=== PATIENT | female | born 1940 | race Caucasian/White ===

== ENCOUNTER 2017-01-05 09:48 | Inpatient (IN) | payer BC, OTHER ==
[~2017-01-05] VITALS: Ht 170.2 cm; Wt 73.8 kg
[~2017-01-05 09:48] MED LIST: ASPCH81X PO; CHOL100010 PO; CRAN1CAP15 PO; HYDR-3124 PO; INSUINJ4 SQ; NVLGI SC; PROB1CAP27 PO
[2017-01-05] MEDS ORDERED: NVLG SC (10:41)
[2017-01-05] MEDS ORDERED: INSDGIPEN SC (10:41)
[2017-01-05] MEDS ORDERED: VTMD1000 PO (10:41)
[2017-01-05 10:45] LABS: BASO % 0.5 %; BASO ABS # 0.06 K/uL (0-0.2); COMPLETE YES; EOS % 1.9 %; HEMATOCRIT 40.4 % (37-47); IG% 0.4 %; LYMPH % 22.8 %; LYMPH ABS # 2.59 K/uL (1.2-3.4); MEAN CORPUSCULAR HEMOGLOBIN 29.8 pg (25-34); MEAN CORPUSCULAR HGB CONC 33.2 g/dl (32-36); MEAN PLATELET VOLUME 11.1 fL (7.4-10.4); MONO % 9.9 %; NEUT % 64.5 %; PLATELET COUNT 220 K/uL (130-400); RED BLOOD COUNT 4.49 M/uL (4.2-5.4); WHITE BLOOD COUNT 11.37 K/uL (4.8-10.8)
[2017-01-05] MEDS ORDERED: EXEN1INJ3 SC (10:45)
[2017-01-05] MEDS ORDERED: ATOR-26 PO (10:47)
[2017-01-05 11:12] LABS: ALT/SGPT 17 U/L (12-78); AST/SGOT 12 U/L (15-37); BLOOD UREA NITROGEN 17 mg/dl (7-18); BUN/CREATININE RATIO 12.5 (10-20); CALCIUM 9.3 mg/dl (8.5-10.1); CARBON DIOXIDE 29 mmol/L (21-32); CHLORIDE 107 mmol/L (98-107); GLUCOSE 91 mg/dl (70-99); POTASSIUM 3.9 mmol/L (3.5-5.1); SODIUM 143 mmol/L (136-145)
[2017-01-05 11:22] LABS: ALKALINE PHOSPHATASE 98 U/L (45-117); CKMB/CK RATIO 1.4 (0-3.0); THYROID STIMULATING HORMONE 0.951 uIu/ml (0.300-4.500)
[2017-01-05] MEDS ORDERED: NTRGSL/4 UT (11:27)
--- NOTE | 2017-01-05 11:52 | DIAGNOSTIC IMAGING REPORT ---
CT HEAD WITHOUT CONTRAST (CT) CLINICAL HISTORY: Change in mental status. HEAD TRAUMA. POSSIBLE HEMORRHAGE. COMPARISON STUDY: 10/15/2015 TECHNIQUE: Axial CT of the brain is performed from the vertex to the skull base. IV contrast was not administered for this examination. CT DOSE: 614.27 mGy.cm FINDINGS: No intra or extra-axial mass lesions are visualized. There is no CT evidence of acute cortical infarction. There is no evidence of midline shift. There is no acute hemorrhage. No calvarial fractures are visualized. There are patchy white matter hypodensities likely on a small vessel basis. There is no evidence of pathologic ventricular dilatation. There is no evidence of acute sinusitis IMPRESSION: No acute intracranial findings Electronically signed by: Calvin Villalba M.D. 01/05/2017 11:51 AM Dictated Date/Time: 01/05/2017 11:50 AM
[2017-01-05] MEDS ORDERED: SODIUM CHLORIDE 0.9% 500ML 500 ML IV STA (12:35)
--- NOTE | 2017-01-05 13:15 | DIAGNOSTIC IMAGING REPORT ---
LEFT RIBS UNILATERAL WITH PA CHEST CLINICAL HISTORY: left eval for fx trauma. Pain. COMPARISON STUDY: None FINDINGS: Negative study IMPRESSION: Negative study Electronically signed by: Cody Hansen M.D. 01/05/2017 12:39 PM Dictated Date/Time: 01/05/2017 12:38 PM
--- NOTE | 2017-01-05 14:03 | EMERGENCY ROOM VISIT NOTE ---
History Report prepared by Gumaro: Blaire Wagoner Under the Supervision of: Dr. Gareth Burnett M.D. First contact with patient: 10:32 Chief Complaint: RIB PAIN Stated Complaint: FELL LAST PM, LEFT RIB PAIN History of Present Illness The patient is a 76 year old female who presents to the Emergency Room with complaints of a sudden fall that occurred this morning. She currently rates her discomfort as a 3/10 in severity. The patient states that for the past several years she has been dizzy. She describes her dizziness as a lightheadedness. The patient states that she injured her left ribs, stating that she has been experiencing left rib pain. She states that she did hit her head this morning, but denies any loss of consciousness. The patient's daughter notes that the patient has had several falls recently. The patient describes her rib pain as a sharp pain. The patient's daughter notes that the patient has had a thirty pound weight loss in the past four months, noting that the patient has had a decrease in appetite. The patient states that she did not drink normal fluids this morning. The patient's daughter notes that the patient's blood glucose was checked this morning, noting that it was 85 mg/dL. She notes that the patient has a history of previous TIAs. The patient states that she had felt that she was developing a recent cold. The patient denies any headache, neck pain, chest pain, shortness of breath, abdominal pain, numbness or weakness to one side of the body, back pain, hip pain, or urinary symptoms. Source of History: patient Onset: this morning Position: other (global) Symptom Intensity: 3/10 Quality: other (fall) Timing: other (sudden) Associated Symptoms: No SOB, No abdominal pain, No back pain, No chest pain , No headache, No neck pain, No numbness, No urinary symptoms, No weakness Note: Associated Symptoms: dizziness, lightheadedness, sharp rib pain, weight loss of thirty pounds in last four months, decrease in appetite, decrease in fluid intake Review of Systems See HPI for pertinent positives & negatives. A total of 10 systems reviewed and were otherwise negative. Past Medical & Surgical Medical Problems: (1) Achilles Tendon Surgery (2) Benign hypertension (3) Chronic kidney disease stage 4 (4) Depression (5) Diabetes mellitus type 2 (6) Dyslipidemia (7) Hyperglycemia (8) Post percutaneous transluminal coronary angioplasty (9) Syncope (10) Toe amputation status Surgical Problems: (1) H/O colonoscopy (2) H/O esophagogastroduodenoscopy (3) H/O toe surgery (4) S/P tonsillectomy Family History Diabetes mellitus FH: heart disease Social History Smoking Status: Current Every Day Smoker Drug Use: none Marital Status: Occupation Status: retired Current/Historical Medications Scheduled Aspirin (Aspirin Chewable), 81 MG PO QPM Atorvastatin (Lipitor), 80 MG PO QPM Cholecalciferol (Vitamin D3), 1,000 INTER.UNIT PO QPM Cranberry-Vitamin C-Vitamin E (Cranberry), 1 CAP PO QPM Exenatide (Bydureon), SC WK Insulin Glargine (Lantus Solostar), 22 UNITS SC QPM Lisinopril (Lisinopril), 2.5 MG PO QPM Probiotic Product (Trubiotics), 1 CAP PO QPM Sertraline (Zoloft), 50 MG PO QPM Scheduled PRN Hydroxyzine Hcl (Atarax), 25 MG PO DAILY PRN for PRN Nitroglycerin (Nitrostat), 0.4 MG UT UD PRN for Chest Pain Allergies Coded Allergies: Cephalosporins (Verified Allergy, Unknown, tolerated Keflex at home, ok for rocephin per dr ho, 01/05/17) [id number] ADMISSION Latex (Verified Allergy, Unknown, "POSSIBLE"- PATIENT DOESN'T REMEMBER BEING ALLERGIC TO LATEX, 01/05/17) PT SAYS SHE "MAY BE" SENSITIVE TO LATEX. Moxifloxacin (Verified Allergy, Unknown, TENDON PAIN, 01/05/17) NSAIDs (Verified Allergy, Unknown, ABDOMINAL PAIN, 01/05/17) Penicillins (Verified Allergy, Unknown, A CHILD, HAD A REACTION, 01/05/17 ) FATHER HAD ANAPHYLACTIC SHOCK TO PCN Quinolones (Verified Allergy, Unknown, UNKNOWN, 01/05/17) Salicylates (Unverified Allergy, Unknown, UNKNOWN, 01/05/17) Sulfa Antibiotics (Verified Allergy, Unknown, PATIENT CAN TAKE LASIX AND GLUCOTROL W/O RXN, 01/05/17) REACTION = TOPICAL "ATE MY SKIN" Sulfamethoxazole (Verified Allergy, Unknown, REACTION WHEN YOUNGER, 01/05/17 ) Ciprofloxacin (Verified Adverse Reaction, Unknown, "DESTROYING MY TENDONS " - ACHILLES TENDON RUPTURES X 4, 01/05/17) Simvastatin (Unverified Adverse Reaction, Unknown, STOMACH CRAMPS, 01/05/17) Physical Exam Vital Signs Date Time Temp Pulse Resp B/P Pulse Ox O2 Delivery O2 Flow Rate FiO2 01/05/17 12:40 90 16 146/83 01/05/17 12:27 89 159/93 99 Room Air 94 107/70 97 82/48 01/05/17 10:28 89 01/05/17 10:16 126/70 01/05/17 09:51 36.7 93 17 109/56 98 Room Air Physical Exam Constitutional: Vital signs reviewed. Eyes: Pupils are equal round reactive to light. Conjunctiva are noninjected. ENT: Soft tissue swelling to left occiput, without austen depression. Pharynx is clear without erythema or exudate. Mucous membranes are moist. Neck supple without meningeal signs. No midline tenderness to cervical spine. Respiratory: Clear to auscultation bilaterally. Breath sounds are equal bilaterally. Cardiovascular: Regular rate and rhythm. No rubs or gallops. GI: Soft, nondistended and nontender. Bowel sounds are present. Musculoskeletal: Tenderness to left lower ribs anteriorly without crepitus or flail segment. No bony tenderness to the hips, arms or legs. No peripheral edema. No lower extremity tenderness. Integumentary: No cyanosis. Neurological: The patient is awake and alert. Cranial nerves II-XII are intact. Motor is 5 out of 5 all extremities. Sensation is intact to light touch all extremities. Normal speech. No pronator drift. Psychiatric: Normal affect. Medical Decision & Procedures ER Provider Diagnostic Interpretation: Radiology results as stated below per my review and the radiologist's interpretation: LEFT RIBS UNILATERAL WITH PA CHEST CLINICAL HISTORY: left eval for fx trauma. Pain. COMPARISON STUDY: None FINDINGS: Negative study IMPRESSION: Negative study Electronically signed by: Cody Hansen M.D. 01/05/2017 12:39 PM Dictated Date/Time: 01/05/2017 12:[address] HEAD WITHOUT CONTRAST (CT) CLINICAL HISTORY: Change in mental status. HEAD TRAUMA. POSSIBLE HEMORRHAGE. COMPARISON STUDY: 10/15/2015 TECHNIQUE: Axial CT of the brain is performed from the vertex to the skull base. IV contrast was not administered for this examination. CT DOSE: 614.27 mGy.cm FINDINGS: No intra or extra-axial mass lesions are visualized. There is no CT evidence of acute cortical infarction. There is no evidence of midline shift. There is no acute hemorrhage. No calvarial fractures are visualized. There are patchy white matter hypodensities likely on a small vessel basis. There is no evidence of pathologic ventricular dilatation. There is no evidence of acute sinusitis IMPRESSION: No acute intracranial findings Electronically signed by: Calvin Villalba M.D. 01/05/2017 11:51 AM Dictated Date/Time: 01/05/2017 11:50 AM Laboratory Results 01/05/17 10:30 Red Blood Count 4.49, Mean Corpuscular Volume 90.0, Mean Corpuscular Hemoglobin 29.8, Mean Corpuscular Hemoglobin Concent 33.2, Mean Platelet Volume 11.1, Neutrophils (%) (Auto) 64.5, Lymphocytes (%) (Auto) 22.8, Monocytes (%) (Auto) 9.9, Eosinophils (%) (Auto) 1.9, Basophils (%) (Auto) 0.5, Neutrophils # (Auto) 7.33, Lymphocytes # (Auto) 2.59, Monocytes # (Auto) 1.12, Eosinophils # (Auto) 0.22, Basophils # (Auto) 0.06 01/05/17 10:30 Test 01/05/17 10:30 White Blood Count 11.37 K/uL (4.8-10.8) Red Blood Count 4.49 M/uL (4.2-5.4) Hemoglobin 13.4 g/dL (12.0-16.0) Hematocrit 40.4 % (37-47) Mean Corpuscular Volume 90.0 fL (80-100) Mean Corpuscular Hemoglobin 29.8 pg (25-34) Mean Corpuscular Hemoglobin Concent 33.2 g/dl (32-36) Platelet Count 220 K/uL (130-400) Mean Platelet Volume 11.1 fL (7.4-10.4) Neutrophils (%) (Auto) 64.5 % Lymphocytes (%) (Auto) 22.8 % Monocytes (%) (Auto) 9.9 % Eosinophils (%) (Auto) 1.9 % Basophils (%) (Auto) 0.5 % Neutrophils # (Auto) 7.33 K/uL (1.4-6.5) Lymphocytes # (Auto) 2.59 K/uL (1.2-3.4) Monocytes # (Auto) 1.12 K/uL (0.11-0.59) Eosinophils # (Auto) 0.22 K/uL (0-0.5) Basophils # (Auto) 0.06 K/uL (0-0.2) RDW Standard Deviation 48.8 fL (36.4-46.3) RDW Coefficient of Variation 14.7 % (11.5-14.5) Immature Granulocyte % (Auto) 0.4 % Immature Granulocyte # (Auto) 0.05 K/uL (0.00-0.02) Anion Gap 7.0 mmol/L (3-11) Est Creatinine Clear Calc Drug Dose 32.7 ml/min Estimated GFR () 41.9 Estimated GFR (Non- 36.2 BUN/Creatinine Ratio 12.5 (10-20) Calcium Level 9.3 mg/dl (8.5-10.1) Total Bilirubin 1.0 mg/dl (0.2-1) Aspartate Amino Transf (AST/SGOT) 12 U/L (15-37) Alanine Aminotransferase (ALT/SGPT) 17 U/L (12-78) Alkaline Phosphatase 98 U/L (45-117) Total Creatine Kinase 57 U/L (26-192) Creatine Kinase MB 0.8 ng/ml (0.5-3.6) Creatine Kinase MB Ratio 1.4 (0-3.0) Troponin I < 0.015 ng/ml (0-0.045) Total Protein 7.1 gm/dl (6.4-8.2) Albumin 3.6 gm/dl (3.4-5.0) Globulin 3.5 gm/dl (2.5-4.0) Albumin/Globulin Ratio 1.0 (0.9-2) Thyroid Stimulating Hormone (TSH) 0.951 uIu/ml (0.300-4.500) Free Thyroxine 1.22 ng/dl (0.80-1.60) Laboratory results as reviewed by me. Medications Administered Medications (Trade) Dose Ordered Sig/Brenda Route Start Time Stop Time Status Last Admin Dose Admin Sodium Chloride (Nss 500ml) 500 ml @ 999 mls/hr Q31M STAT IV 01/05/17 12:35 01/05/17 13:05 DC 01/05/17 12:43 999 MLS/HR ECG Indication: other (dizziness) Rate (beats per minute): 90 Rhythm: normal sinus Findings: no ectopy, other (no ST elevations, T wave flattening in lead 1 and AVL) ED Course 1035: The patient was evaluated in room C4. A complete history and physical exam was performed. 1230: Per nursing staff, the patient was extremely orthostatic. Nursing staff is going to order the patient a meal tray. 1235: Ordered Sodium Chloride 500 ml @ 999 mls/hr IV. 1329: I reevaluated the patient and she is resting comfortably. I discussed the exam findings with her and I discussed the treatment plan. She agreed to stay for further evaluation and treatment. 1341: I discussed the patient's case with Malorie Floyd PA-C. She is going to evaluate the patient for further treatment. Medical Decision This is a 76-year-old female who presents after falling today. Differential diagnosis includes contusion, concussion, rib fracture, intracranial hemorrhage , metabolic derangement, anemia, cardiac, dehydration. I did perform a limited focused review of portions of the patient's old chart on the electronic medical record. The patient has had no recent pertinent visits to this hospital. I did evaluate the patient as noted above. The patient is presenting with injuries after a fall. The patient states she normally gets dizzy when she stands up. Today she got very dizzy which caused her to fall. She did not lose consciousness but did feel very weak and lightheaded. She complains of rib pain. Her daughter notes that she has not been eating or drinking very much recently. She reports loss of appetite but denies any abdominal pain or shortness of breath. She has had no chest pain other than the rib pain. IV access was established. The patient was placed on a continuous dynamotor repairer. I did order and personally review the patient's 12-lead EKG and rib/ chest x-ray as described above. No rib fracture. I did order and review the patient's blood work as noted in the electronic medical record. I did order a CT of the head. I did review the images myself as well as the radiology report as described above. There is no evidence of acute intracranial injury. I did obtain orthostatic vital signs. She is significantly orthostatic which likely caused her near-syncope today. She was given a meal tray and normal saline IV. Due to her weakness and risk for falling I did recommend hospitalization as I did not feel she could adequately care for herself at home without risking further injury. She does state that the power is out in her house as well. I did discuss the case with the hospitalist and watch caser. Consults Time Called: 1335 Consulting Physician: Malorie Floyd PA-C Returned Call: 1345 I discussed the patient's case with Malorie Floyd PA-C. She is going to evaluate the patient for further treatment. Impression Primary Impression: Near syncope Additional Impressions: Fall Orthostatic hypotension Contusion of rib on left side Head injury, acute Scribe Attestation The scribe's documentation has been prepared under my direct and personally reviewed by me in its entirety. I confirm that the note above accurately reflects all work, treatment, procedures, and medical decision making performed by me. Departure Information Dispostion Being Evaluated By Hospitalist Referrals Eleno Peters MD (PCP) Problem Qualifiers Additional Impressions: Fall Encounter type: initial encounter Qualified Codes: W19.XXXA - Unspecified fall, initial encounter Contusion of rib on left side Encounter type: initial encounter Qualified Codes: S20.212A - Contusion of left front wall of thorax, initial encounter Head injury, acute Encounter type: initial encounter Qualified Codes: S09.90XA - Unspecified injury of head, initial encounter
[2017-01-05] MEDS ORDERED: GLUCOSE 40% GEL 15 GM TUBE PO PRN (14:30)
[2017-01-05] MEDS ORDERED: ONDANSETRON INJ 2 MG/ML 2 ML VIAL IV PRN (14:30)
[2017-01-05] MEDS ORDERED: DEXTROSE 50% 50 ML SYR IV PRN (14:30)
[2017-01-05] MEDS ORDERED: GLUCAGON FOR INJ 1 MG VIAL SQ PRN (14:30)
[2017-01-05] MEDS ORDERED: hydrOXYzine HCL 25 MG TAB PO PRN (14:30)
[2017-01-05] MEDS ORDERED: GLUCOSE 10 TABS/TUBE PO PRN (14:30)
[2017-01-05] MEDS ORDERED: SODIUM CHLORIDE 0.9% 1000ML 1,000 ML IV SCH (14:45)
--- NOTE | 2017-01-05 14:49 | History and Physical ---
History & Physical Date & Time of Service: January 05, 2017 at 14:30 Chief Complaint: Fell Last Pm, Left Rib Pain Primary Care Physician: Eleno Peters MD History of Present Illness Source: patient This is a 76 y/o female with PMHx of CAD s/p stent placement, DM 2, CKD stage IV , HTN, Dyslipidemia and other problems as outlined below who presents to the ED after a near-syncopal episode this morning. Pt reports that she was getting out of bed this morning when she became lightheaded and dizzy causing her to fall. She did hit her the back of her head but she denies loss of consciousness. She is currently complaining of L rib pain. Per daughter at bedside patient has been falling a lot recently. She noticed patient has not been eating well and she has lost ~20lbs in 5 months. Per daughter, patient does not take care of herself and is very dependent on family members for her care. Pt currently lives at home alone with family coming in multiple times a day. Pt denies fever/ chills, diaphoresis, chest pain, palpitations, SOB, wheezing, abd pain, N/V, bowel or bladder issues, LE edema or calf pain. In the ED, vitals are stable. + orthostatic hypotension. Head CT and CXR are negative for acute process. Pt is stable and will be admitted for further evaluation and treatment. Past Medical/Surgical History Medical Problems: (1) Achilles Tendon Surgery Status: Chronic (2) Benign hypertension Status: Chronic (3) Chronic kidney disease stage 4 Status: Chronic (4) Depression Status: Chronic (5) Diabetes mellitus type 2 Status: Chronic (6) Dyslipidemia Status: Chronic (7) Post percutaneous transluminal coronary angioplasty Status: Resolved (8) Toe amputation status Status: Chronic Surgical Problems: (1) H/O colonoscopy Status: Chronic (2) H/O esophagogastroduodenoscopy Status: Chronic (3) H/O toe surgery Status: Chronic (4) S/P tonsillectomy Status: Chronic Family History Diabetes mellitus FH: heart disease Social History Smoking Status: Current Every Day Smoker (1 ppd x 65 years) Alcohol Use: none Drug Use: none Marital Status: Housing status: lives alone Occupational Status: retired Immunizations History of Influenza Vaccine: Yes Influenza Vaccine Date: May 23, 2011 History of Tetanus Vaccine?: Yes History of Pneumococcal: Yes Pneumococcal Date: Sep 06, 2009 History of Hepatitis B Vaccine: No Multi-Drug Resistant Organisms History of MDRO: No Allergies Coded Allergies: Cephalosporins (Verified Allergy, Unknown, tolerated Keflex at home, ok for rocephin per dr ho, 01/05/17) [id number] ADMISSION Latex (Verified Allergy, Unknown, "POSSIBLE"- PATIENT DOESN'T REMEMBER BEING ALLERGIC TO LATEX, 01/05/17) PT SAYS SHE "MAY BE" SENSITIVE TO LATEX. Moxifloxacin (Verified Allergy, Unknown, TENDON PAIN, 01/05/17) NSAIDs (Verified Allergy, Unknown, ABDOMINAL PAIN, 01/05/17) Penicillins (Verified Allergy, Unknown, A CHILD, HAD A REACTION, 01/05/17 ) FATHER HAD ANAPHYLACTIC SHOCK TO PCN Quinolones (Verified Allergy, Unknown, UNKNOWN, 01/05/17) Salicylates (Unverified Allergy, Unknown, UNKNOWN, 01/05/17) Sulfa Antibiotics (Verified Allergy, Unknown, PATIENT CAN TAKE LASIX AND GLUCOTROL W/O RXN, 01/05/17) REACTION = TOPICAL "ATE MY SKIN" Sulfamethoxazole (Verified Allergy, Unknown, REACTION WHEN YOUNGER, 01/05/17 ) Ciprofloxacin (Verified Adverse Reaction, Unknown, "DESTROYING MY TENDONS " - ACHILLES TENDON RUPTURES X 4, 01/05/17) Simvastatin (Unverified Adverse Reaction, Unknown, STOMACH CRAMPS, 01/05/17) Home Medications Scheduled Aspirin (Aspirin Chewable), 81 MG PO QPM Atorvastatin (Lipitor), 80 MG PO QPM Cholecalciferol (Vitamin D3), 1,000 INTER.UNIT PO QPM Cranberry-Vitamin C-Vitamin E (Cranberry), 1 CAP PO QPM Exenatide (Bydureon), SC WK Insulin Glargine (Lantus Solostar), 22 UNITS SC QPM Lisinopril (Lisinopril), 2.5 MG PO QPM Probiotic Product (Trubiotics), 1 CAP PO QPM Sertraline (Zoloft), 50 MG PO QPM Scheduled PRN Hydroxyzine Hcl (Atarax), 25 MG PO DAILY PRN for PRN Nitroglycerin (Nitrostat), 0.4 MG UT UD PRN for Chest Pain Review of Systems Constitutional: No chills, No fatigue, No fever, No sweats, No weakness Eyes: No worsening of vision ENT: No hearing loss Respiratory: No cough, No shortness of breath Cardiovascular: No chest pain, No claudication, No edema Abdomen: No constipation, No diarrhea, No nausea, No pain, No vomiting Musculoskeletal: No calf pain, No swelling Genitourinary - Female: No dysuria Neurologic: + problem reported (near-syncope), No weakness Psychiatric: No depression symptoms Endocrine: No fatigue Hematologic / Lymphatic: No abnormal bleeding/bruising Integumentary: No new/changing skin lesions Physical Exam Vital Signs Date Time Temp Pulse Resp B/P Pulse Ox O2 Delivery O2 Flow Rate FiO2 01/05/17 14:20 93 16 116/74 01/05/17 14:08 92 01/05/17 12:40 90 16 146/83 01/05/17 12:27 89 159/93 99 Room Air 94 107/70 97 82/48 01/05/17 10:28 89 01/05/17 10:16 126/70 01/05/17 09:51 36.7 93 17 109/56 98 Room Air General Appearance: WD/WN, no apparent distress, + pertinent finding (Pt is sitting up in bed with daughter at bedside) Head: normocephalic, atraumatic Eyes: normal inspection, PERRL, EOMI ENT: hearing grossly normal Neck: supple Respiratory/Chest: lungs clear, normal breath sounds, no respiratory distress, + pertinent finding (tenderness under L breast) Cardiovascular: regular rate, rhythm, no edema, no murmur Abdomen/GI: normal bowel sounds, non tender, soft Back: normal inspection Extremities/Musculoskelatal: normal inspection, no calf tenderness, no pedal edema Neurologic/Psych: alert, normal mood/affect, oriented x 3 Skin: normal color, warm/dry Diagnostics Laboratory Results Results Past 24 Hours Test 01/05/17 10:30 Range/Units White Blood Count 11.37 4.8-10.8 K/uL Red Blood Count 4.49 4.2-5.4 M/uL Hemoglobin 13.4 12.0-16.0 g/dL Hematocrit 40.4 37-47 % Mean Corpuscular Volume 90.0 80-100 fL Mean Corpuscular Hemoglobin 29.8 25-34 pg Mean Corpuscular Hemoglobin Concent 33.2 32-36 g/dl Platelet Count 220 130-400 K/uL Mean Platelet Volume 11.1 7.4-10.4 fL Neutrophils (%) (Auto) 64.5 % Lymphocytes (%) (Auto) 22.8 % Monocytes (%) (Auto) 9.9 % Eosinophils (%) (Auto) 1.9 % Basophils (%) (Auto) 0.5 % Neutrophils # (Auto) 7.33 1.4-6.5 K/uL Lymphocytes # (Auto) 2.59 1.2-3.4 K/uL Monocytes # (Auto) 1.12 0.11-0.59 K/uL Eosinophils # (Auto) 0.22 0-0.5 K/uL Basophils # (Auto) 0.06 0-0.2 K/uL RDW Standard Deviation 48.8 36.4-46.3 fL RDW Coefficient of Variation 14.7 11.5-14.5 % Immature Granulocyte % (Auto) 0.4 % Immature Granulocyte # (Auto) 0.05 0.00-0.02 K/uL Sodium Level 143 136-145 mmol/L Potassium Level 3.9 3.5-5.1 mmol/L Chloride Level 107 98-107 mmol/L Carbon Dioxide Level 29 21-32 mmol/L Anion Gap 7.0 3-11 mmol/L Blood Urea Nitrogen 17 7-18 mg/dl Creatinine 1.40 0.60-1.20 mg/dl Est Creatinine Clear Calc Drug Dose 32.7 ml/min Estimated GFR () 41.9 Estimated GFR (Non- 36.2 BUN/Creatinine Ratio 12.5 10-20 Random Glucose 91 70-99 mg/dl Calcium Level 9.3 8.5-10.1 mg/dl Total Bilirubin 1.0 0.2-1 mg/dl Aspartate Amino Transf (AST/SGOT) 12 15-37 U/L Alanine Aminotransferase (ALT/SGPT) 17 12-78 U/L Alkaline Phosphatase 98 45-117 U/L Total Creatine Kinase 57 26-192 U/L Creatine Kinase MB 0.8 0.5-3.6 ng/ml Creatine Kinase MB Ratio 1.4 0-3.0 Troponin I < 0.015 0-0.045 ng/ml Total Protein 7.1 6.4-8.2 gm/dl Albumin 3.6 3.4-5.0 gm/dl Globulin 3.5 2.5-4.0 gm/dl Albumin/Globulin Ratio 1.0 0.9-2 Thyroid Stimulating Hormone (TSH) 0.951 0.300-4.500 uIu/ml Free Thyroxine 1.22 0.80-1.60 ng/dl Diagnostic Radiology HEAD CT IMPRESSION: No acute intracranial findings CXR IMPRESSION: Negative study EKG EKG: NSR at 90 bpm with nonspec T wave abnorm now evident in lateral leads; T wave abnorm new when compared to EKG from 10/17/15 Impression Assessment and Plan NEAR-SYNCOPE LIKELY SECONDARY TO ORTHOSTATIC HYPOTENSION pt presented after a near-syncopal episode this morning when she was getting out of bed; h/o multiple similar episodes in the past -admit observation status to med/surg -+ orthostatic hypotension in ED -CT head negative and CXR no acute fx -cont gentle IVF -hold lisinopril for now -fall precautions -PT/OT evals -monitor CKD STAGE IV -creatinine around baseline at 1.4 -monitor with daily prp and avoid nephrotoxic agents when able DM 2 -recent A1C 7.3 -cont Lantus -start ISS -monitor BSG AC HS CAD -s/p stent placement in 2010 -cont ASA and statin -pt currently denies anginal sxs DEPRESSION -cont Zoloft HTN -orthostatic hypotension -hold lisinopril for now -monitor DYSLIPIDEMIA -cont statin DVT PROPHYLAXIS -subq Lovenox CODE STATUS -FULL CODE per discussion with patient upon admission DISPO -Observation status until further workup is complete. Pt seen in collaboration with Dr. Rutherford. Please see her addendum for further details. Thanks! -Of note: patient will be followed by Dr. Lopez starting tomorrow AM. I have seen, examined and discussed this patient with Ivis Edmond and I agree with the above note. I know this patient and her daughters very well from previous hospitalizations. Unfortunately, you cannot believe the majority of what the patient tells you. We (the daughters and myself) feel that patient does believe that she is doing what she says she is doing, but this is not truly the case. Per her daughter Josef (present at bedside), patient does not do anything for herself. Patient lives alone and at the present, her daughter Sabrina comes every morning and her daughter Josef comes every evening. They are managing everything at this time: medications, meals, grocery shopping, bill paying, etc. Fortunately, the patient no longer drives. They are not sure how much longer they can keep this up. However, the patient adamantly refuses placement of any kind. Home health has also been difficult as patient will initially agree to it, and then refuse to let them in the house. The office of aging is also involved. Unfortunately it has been determined that until the patient comes to the point of being incapable of making her own decisions, there is not much more that can be done than what the daughters are currently doing. Her daughter Sabrina is her power of district attorney. Patient presents after a fall this morning. Patient does frequently fall and has multiple fractures as a result. Vitals notable for orthostasis. PE: General- awake; alert; NAD Eyes- EOMI; no scleral icterus Neck- no stridor; trachea midline Lungs- CTA bilaterally; no wheezes/crackles Heart- RRR; no m/r/g Chest- chest wall tenderness to palpation underneath left breast Abdomen- soft; NTND; nBS Back- normal inspection Extremities- no c/c/e; missing toes Neuro- no focal deficits Skin- scattered abrasions Labs, imaging and EKG reviewed. Frequent falls - likely multifactorial - patient refuses to use assistive devices - vitals notable for +orthostasis - this is also likely multifactorial: patient has very poor po intake and likely has autonomic neuropathy from long-standing diabetes - gentle IVF's, d/w patient and daughter slowing changing positions, compression stockings - patient has previously had extensive negative syncope workup (see previous hospitalizations) - PT/OT and social media developer Agree with remainder of plan as outlined above. VTE Prophylaxis VTE Risk Assessment Done? Y/N: Yes Risk Level: Moderate
[2017-01-05] MEDS ORDERED: IV FLUIDS COMPLETED PRN (15:00)
[2017-01-05 15:52] VITALS: BP 137/80; PULSE 85; TEMP 36.8; O2SAT 95
[2017-01-05 16:29] VITALS: BP 137/80; PULSE 85; TEMP 36.8; BMI 25.5
[2017-01-05 16:30] VITALS: BP 137/80; PULSE 85; TEMP 36.8; O2SAT 95; Ht 170.2 cm; Wt 73.8 kg
[2017-01-05 16:44] LABS: URINE APPEARANCE TURBID (CLEAR); URINE BILIRUBIN NEG (NEG); URINE COLOR YELLOW; URINE EPITHELIAL CELL AUTO >30 /lpf (0-5); URINE NITRITE NEG (NEG); URINE SPECIFIC GRAVITY 1.015 (1.000-1.030); UROBILINOGEN NEG (NEG); ZZUR CULT IF INDIC CLEAN CATCH YES
[2017-01-05 16:47] LABS: MANUAL MICROSCOPIC REQUIRED? NO; REVIEW REQ? NO
[2017-01-05] MEDS ORDERED: LISI2.5T5 PO (16:52)
[2017-01-05] MEDS: INSULIN ASPART 100 UNITS/ML 3 ML PEN SC SCH ×2 (18:35→21:00)
[2017-01-05] MEDS ORDERED: SERT50TA PO (18:49)
[2017-01-05 20:00] VITALS: O2SAT 95
[2017-01-05] MEDS ORDERED: NON-FORMULARY MEDICATION (Cranberry-Vitamin C-Vitamin E (Cranberry) 1 CAP) PO SCH (21:00)
[2017-01-05] MEDS: ASPIRIN 81 MG ECTAB PO SCH (21:42)
[2017-01-05] MEDS: ATORVASTATIN 40 MG TAB PO SCH (21:43)
[2017-01-05] MEDS: CHOLECALCIFEROL 1000 INTER.UNIT TAB PO SCH (21:43)
[2017-01-05] MEDS: LACTOBACILLUS ACIDOPHILUS (FLORANEX) TAB PO SCH (21:43)
[2017-01-05] MEDS: SERTRALINE HCL 50 MG TAB PO SCH (21:44)
[2017-01-05] MEDS: ENOXAPARIN 40 MG/0.4 ML SYR SQ SCH (21:44)
[2017-01-05] MEDS: INSULIN GLARGINE SOLOSTAR 100 UNITS/ML 3 ML PEN SC SCH (21:48)
[2017-01-05 23:55] VITALS: BP 135/82; PULSE 86; TEMP 37; O2SAT 94
[2017-01-06] VITALS: O2SAT 95
[2017-01-06 07:17] VITALS: BP 129/76; PULSE 79; TEMP 37; O2SAT 97
[2017-01-06 07:20] LABS: HEMATOCRIT 37.2 % (37-47); MEAN CELL VOLUME 90.1 fL (80-100); MEAN CORPUSCULAR HEMOGLOBIN 28.6 pg (25-34); MEAN CORPUSCULAR HGB CONC 31.7 g/dl (32-36); MEAN PLATELET VOLUME 10.7 fL (7.4-10.4); PLATELET COUNT 208 K/uL (130-400); RED BLOOD COUNT 4.13 M/uL (4.2-5.4); WHITE BLOOD COUNT 12.29 K/uL (4.8-10.8)
[2017-01-06 07:58] LABS: BUN/CREATININE RATIO 13.9 (10-20); CALCIUM 8.6 mg/dl (8.5-10.1); CREATININE 1.2 mg/dl (0.60-1.20); POTASSIUM 3.9 mmol/L (3.5-5.1)
[2017-01-06] MEDS: INSULIN ASPART 100 UNITS/ML 3 ML PEN SC SCH ×4 (08:52→20:33)
[2017-01-06] MEDS: CEFTRIAXONE SOD INJ 1 GM in DEXTROSE 5% ADD-VANTAGE 50ML 50 ML IV SCH (09:03)
[2017-01-06 15:47] VITALS: BP 143/80; PULSE 79; TEMP 36.3; O2SAT 97
[2017-01-06] MEDS: ASPIRIN 81 MG ECTAB PO SCH (20:33)
[2017-01-06] MEDS: LACTOBACILLUS ACIDOPHILUS (FLORANEX) TAB PO SCH (20:33)
[2017-01-06] MEDS: SERTRALINE HCL 50 MG TAB PO SCH (20:33)
[2017-01-06] MEDS: CHOLECALCIFEROL 1000 INTER.UNIT TAB PO SCH (20:34)
[2017-01-06] MEDS: ATORVASTATIN 40 MG TAB PO SCH (20:34)
[2017-01-06] MEDS: ENOXAPARIN 40 MG/0.4 ML SYR SQ SCH (20:36)
[2017-01-06] MEDS: INSULIN GLARGINE SOLOSTAR 100 UNITS/ML 3 ML PEN SC SCH (20:39)
--- NOTE | 2017-01-06 21:22 | Progress Note ---
Medicine Progress Note Date & Time of Visit: January 06, 2017 at 16:28. Subjective -doing well overall -denies UTI symptoms but states that she has these frequently -spoke with daughter for 30 minutes outside of room who relayed all recent activities and concerns including multiple falls at home, questionable judgement juwan in setting of smoking in the house and possibly leaving if there was a fire, etc. She is unable to care for herself and declines going anywhere for rehab or placement. Daughter states she is getting worse over the past year and she is very concerned. OOA was involved but cannot do anything at this point per daughter. MENTAL HEALTH CAPACITANCE DOCUMENTATION: After speaking with MH liaison I went back to speak with the patient regarding the idea of placement en route to home again. She continued to say that she didn't understand why rehab would be needed for someone like her as she is able to take care of herself including cooking for herself, giving herself her meds, gardening, bathing herself,, etc. This is documented that she has said this to other providers in the past, however, family members state that this isn't the case. The patient continues to state that she doesn't understand why rehab would be necessary for her and denies any risks associated with her not going, because to her she is perfectly fine. I explained to her that she may continue to have frequent falls at home if she doesn't go, and again she states that that isn't an issue for her. Incidentally, I again asked her why she was in the hospital and she couldn't tell her. When I reminded her it was because she fell at home, she stated to me that "well I haven't said I never fall, just maybe not that often, i really can't remember." She states that, in fact, her daughters Josef and Sabrina do not come over to her house daily as they say they do to care for her needs. She states that her friends come over instead, and mentions Mayelin-a friend who lives in [place]-and a friend Allyssa Morales. I asked if they do anything to help her and she responded, "I don't understand, what would they need to help me with? I can do everything myself." She states that she traveled to [place] to see her friend who had Dereck Day one month ago. 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 She states that she put herself through college doing this. We talked about the fact that falls, poor judgement calls like forgetting she left the oven on, or other pitfalls may happen without going for at least a short stay in rehab. She became tearful at this point and was consistently saying how noone has ever told her any of their concerns regarding this, and she just didn't understand why she would need to go somewhere other than home because there was no issue to speak of. My impression of this conversation is that she is sincerely believing an untruth that she can take care of herself when she can't. Her memory loss is significant--she didn't remember her recent Neurology visit with Dr. Rogers or who he was, and doesn't know who her PCP, Dr. Dao is. I don't think she can comprehend what I am truly saying to her, and don't think she understands the risks of not going to a facility versus the benefits of going. I sense that she is fearful, and after she became tearful I left the conversation alone. Will have formal PT eval tomorrow and appreciate MH input on capacity to make decisions for herself. Objective Last 8 Hrs Date Time Temp Pulse Resp B/P Pulse Ox O2 Delivery O2 Flow Rate FiO2 01/06/17 15:47 36.3 79 18 143/80 97 Room Air 01/06/17 08:30 Room Air Physical Exam: GEN: WNWD, in no acute distress, alert and appropriate HEENT: NC/AT, normal sclerae CARDIO: reg rate, S1/2 heard without m/g/r LUNGS: CTA bilaterally, no crackles, rales or wheezes, guarded diaphragmatic excursion CHEST WALL: anterior chest wall is TTP under right breast ABD: soft, non-tender, non-distended, no rebound or guarding EXTREMITY: no LE swelling or edema, extremities are warm and well-perfused NEURO: CN 2-12 grossly intact MUSC: no gross focal deficits, she was able to sit up on the side of the bed with ease SKIN: warm and dry Laboratory Results: 01/06/17 06:55 01/06/17 06:55 Test 01/05/17 10:30 01/05/17 16:05 01/06/17 06:55 01/06/17 19:52 Immature Granulocyte % (Auto) 0.4 % White Blood Count 11.37 K/uL (4.8-10.8) Red Blood Count 4.49 M/uL (4.2-5.4) 4.13 M/uL (4.2-5.4) Hemoglobin 13.4 g/dL (12.0-16.0) Hematocrit 40.4 % (37-47) Mean Corpuscular Volume 90.0 fL (80-100) 90.1 fL (80-100) Mean Corpuscular Hemoglobin 29.8 pg (25-34) 28.6 pg (25-34) Mean Corpuscular Hemoglobin Concent 33.2 g/dl (32-36) 31.7 g/dl (32-36) Platelet Count 220 K/uL (130-400) Mean Platelet Volume 11.1 fL (7.4-10.4) 10.7 fL (7.4-10.4) Neutrophils (%) (Auto) 64.5 % Lymphocytes (%) (Auto) 22.8 % Monocytes (%) (Auto) 9.9 % Eosinophils (%) (Auto) 1.9 % Basophils (%) (Auto) 0.5 % Neutrophils # (Auto) 7.33 K/uL (1.4-6.5) Lymphocytes # (Auto) 2.59 K/uL (1.2-3.4) Monocytes # (Auto) 1.12 K/uL (0.11-0.59) Eosinophils # (Auto) 0.22 K/uL (0-0.5) Basophils # (Auto) 0.06 K/uL (0-0.2) Immature Granulocyte # (Auto) 0.05 K/uL (0.00-0.02) Total Bilirubin 1.0 mg/dl (0.2-1) Aspartate Amino Transf (AST/SGOT) 12 U/L (15-37) Alanine Aminotransferase (ALT/SGPT) 17 U/L (12-78) Alkaline Phosphatase 98 U/L (45-117) Total Creatine Kinase 57 U/L (26-192) Creatine Kinase MB 0.8 ng/ml (0.5-3.6) Creatine Kinase MB Ratio 1.4 (0-3.0) Troponin I < 0.015 ng/ml (0-0.045) Total Protein 7.1 gm/dl (6.4-8.2) Albumin 3.6 gm/dl (3.4-5.0) Globulin 3.5 gm/dl (2.5-4.0) Albumin/Globulin Ratio 1.0 (0.9-2) Thyroid Stimulating Hormone (TSH) 0.951 uIu/ml (0.300-4.500) Free Thyroxine 1.22 ng/dl (0.80-1.60) Urine Color YELLOW Urine Appearance TURBID (CLEAR) Urine pH 7.0 (4.5-7.5) Urine Specific [employer] 1.015 (1.000-1.030) Urine Protein 1+ (NEG) Urine Glucose (UA) NEG (NEG) Urine Ketones NEG (NEG) Urine Occult Blood NEG (NEG) Urine Nitrite NEG (NEG) Urine Bilirubin NEG (NEG) Urine Urobilinogen NEG (NEG) Urine Leukocyte Esterase LARGE (NEG) Urine WBC (Auto) >30 /hpf (0-5) Urine RBC (Auto) 0-4 /hpf (0-4) Urine Hyaline Casts (Auto) 1-5 /lpf (0-5) Urine Epithelial Cells (Auto) >30 /lpf (0-5) Urine Bacteria (Auto) 2+ (NEG) RDW Standard Deviation 48.7 fL (36.4-46.3) RDW Coefficient of Variation 14.8 % (11.5-14.5) Anion Gap 6.0 mmol/L (3-11) Est Creatinine Clear Calc Drug Dose 38.2 ml/min Estimated GFR () 50.5 Estimated GFR (Non- 43.6 BUN/Creatinine Ratio 13.9 (10-20) Calcium Level 8.6 mg/dl (8.5-10.1) Bedside Glucose 145 mg/dl (70-90) Date/Time Source Procedure Growth Status 01/05/17 16:05 Urine , Clean Catch Urine Culture - Preliminary Escherichia Coli Resulted Last 24 Hours Test 01/05/17 16:56 01/05/17 19:59 01/06/17 06:55 01/06/17 07:24 Bedside Glucose 94 mg/dl 168 mg/dl 75 mg/dl White Blood Count 12.29 K/uL Red Blood Count 4.13 M/uL Hemoglobin 11.8 g/dL Hematocrit 37.2 % Mean Corpuscular Volume 90.1 fL Mean Corpuscular Hemoglobin 28.6 pg Mean Corpuscular Hemoglobin Concent 31.7 g/dl RDW Standard Deviation 48.7 fL RDW Coefficient of Variation 14.8 % Platelet Count 208 K/uL Mean Platelet Volume 10.7 fL Sodium Level 145 mmol/L Potassium Level 3.9 mmol/L Chloride Level 111 mmol/L Carbon Dioxide Level 28 mmol/L Anion Gap 6.0 mmol/L Blood Urea Nitrogen 17 mg/dl Creatinine 1.20 mg/dl Est Creatinine Clear Calc Drug Dose 38.2 ml/min Estimated GFR () 50.5 Estimated GFR (Non- 43.6 BUN/Creatinine Ratio 13.9 Random Glucose 78 mg/dl Calcium Level 8.6 mg/dl Test 01/06/17 11:21 Bedside Glucose 123 mg/dl Assessment & Plan 76 yoF with vascular dementia who lives alone presents with presyncope at home with position change and subsequent fall with trauma to her head NEAR-SYNCOPE LIKELY SECONDARY TO ORTHOSTATIC HYPOTENSION vs INFECTION -+ orthostatic hypotension in ED -likely multifactorial 2/2 poor PO intake at home (pt doesn't cook or feed herself and is completely dependent on family members who are overwhelmed) and autonomic neuropathy from long-standing diabetes. -CT head negative and CXR no acute fx -IVF were continued, however, she is tolerating PO so will stop these now. -will give one more day prior to restarting lisinopril as pressures are controlled. -fall precautions -PT/OT evals -->PT was sent away by patient this morning and have not been able to evaluate her yet. -began treatment for UTI earlier this morning with some possible improvement DEMENTIA: progressive, likely vascular. Aricept was tried by Dr. Rogers as outpatient which made her stomach upset. As she was starting to lose weight, her daughter stopped it. Per reevaluation by Dr. Rogers, Namenda would not add benefit. He agrees that she is becoming more cognitively impaired, congruent with the family's observations in caring for her. All are in agreement, including myself, that a personal group home would be the safest option for her at this point. However, capacity is an issue, and the patient has been able to present a lucid picture to OOA, who were involved and feel there is no current issue. Multiple behavioral issues were cited by daughter today who is very emotional in seeing her mother decline including she doesn't bathe or care for herself and when her daughter bathes her she cries like a toddler. The patient left a recent medical appointment and was on [address] where she was foudn wandering and clueless as to why she was there or why her daughter was upset. There have been multiple cigarette jaquez in her housecoat and other places around the house where she smokes.....etc. Will engage with Psychiatry at this point to ensure capacity that she can make a solid conscious decision about not going to rehab. Dr. Contreras to see her in the morning. (see documentation above regarding my observations into her insight on the situation). UTI: patient denies current UTI symptoms but states that she gets frequent UTIs In the setting of a fall, presyncope and some reports of AMS by daughter will treat empirically with Rocephin and taper based on abx results. L rib pain-CXR is negative for rib fractures, but this may not be sensitive enough of an imaging study, and rib fractures are possible with recent fall and subsequent pain. Patient and daughter agree that since CT chest will not change our management, we will not pursue this to look for rib fractures. Pain control as needed, and currently she is declining, which is fine. However, if she becomes delirious, consider pain being too much and would schedule APAP or something with least amount of side effects in case the pain is the cause. CKD STAGE IV -creatinine around baseline at 1.4 --today after IVF and holding ACEI she is 1.2 -monitor with daily prp and avoid nephrotoxic agents when able DM 2 -recent A1C 7.3 -cont Lantus but hold Bydureon (only on these two at home with min reports of low blood sugars, A1C is 7.3 which is appropriate control) -cont ISS -monitor BSG AC HS CAD -s/p stent placement in 2010 -cont ASA and statin -pt currently denies anginal sxs DEPRESSION -cont Zoloft HTN -controlled -hold lisinopril for now using caution with recent orthostatic hypotension -monitor DYSLIPIDEMIA -cont statin TOBACCO USE: active smoker which poses an additional risk for her at home in addition to the obvious health risks. Encouraged to quit. DVT PROPHYLAXIS -subq Lovenox CODE STATUS -FULL CODE per discussion with patient upon admission DO Malorie Doyle Hospitalist Consultants: Mental Health Current Inpatient Medications: Current Inpatient Medications Medications (Trade) Dose Ordered Sig/Brenda Route Start Time Stop Time Status Last Admin Dose Admin Enoxaparin Sodium (Lovenox Inj) 40 mg Q24H SQ 01/05/17 21:00 02/04/17 20:59 01/05/17 21:44 40 MG Acetaminophen (Tylenol Tab) 650 mg Q4H PRN PO 01/05/17 14:30 02/04/17 14:29 Ondansetron HCl (Zofran Inj) 4 mg Q6H PRN IV 01/05/17 14:30 02/04/17 14:29 01/05/17 22:33 4 MG Insulin Aspart (novoLOG ASPART) SLIDING SCALE If C... ACHS SC 01/05/17 16:30 02/04/17 16:29 01/06/17 11:59 1 UNITS Glucose (Glucose 40% Gel) 15-30 GRAMS 15 GRAMS... UD PRN PO 01/05/17 14:30 02/04/17 14:29 Glucose (Glucose Chew Tab) 4-8 Tablets 4 Tabl... UD PRN PO 01/05/17 14:30 02/04/17 14:29 Dextrose (Dextrose 50% 50ML Syringe) 25-50ML OF 50% DW IV FOR... UD PRN IV 01/05/17 14:30 02/04/17 14:29 Glucagon (Glucagon Inj) 1 mg UD PRN SQ 01/05/17 14:30 02/04/17 14:29 Aspirin (Ecotrin Tab) 81 mg QPM PO 01/05/17 21:00 02/04/17 20:59 01/05/17 21:42 81 MG Atorvastatin Calcium (Lipitor Tab) 80 mg QPM PO 01/05/17 21:00 02/04/17 20:59 01/05/17 21:43 80 MG Cholecalciferol (Vitamin D Tab) 1,000 inter.unit QPM PO 01/05/17 21:00 02/04/17 20:59 01/05/17 21:43 1,000 INTER.UNIT Hydroxyzine HCl (Vistaril Tab) 25 mg DAILY PRN PO 01/05/17 14:30 02/04/17 14:29 Sertraline HCl (Zoloft Tab) 50 mg QPM PO 01/05/17 21:00 02/04/17 20:59 01/05/17 21:44 50 MG Lactobacillus Acidophilus (Floranex Tab) 1 tab QPM PO 01/05/17 21:00 02/04/17 20:59 01/05/17 21:43 1 TAB Miscellaneous (Iv Fluids Completed) 1 ea PRN PRN N/A 01/05/17 15:00 01/05/18 14:59 Insulin Glargine 22 unit 22 unit QPM SC 01/05/17 21:00 02/04/17 20:59 01/05/17 21:48 22 UNIT Ceftriaxone Sodium/Dextrose (Rocephin Inj/ Dextrose Add-[place] 50ML) 50 ml @ 100 mls/hr DAILY@0900 IV 01/06/17 09:00 01/11/17 08:59 01/06/17 09:03 100 MLS/HR
[2017-01-06 23:04] VITALS: BP 133/82; PULSE 82; TEMP 37.1; O2SAT 97
[2017-01-07 07:08] VITALS: BP 155/79; PULSE 80; TEMP 37; O2SAT 96
[2017-01-07] MEDS: CEFTRIAXONE SOD INJ 1 GM in DEXTROSE 5% ADD-VANTAGE 50ML 50 ML IV SCH (08:07)
[2017-01-07] MEDS: INSULIN ASPART 100 UNITS/ML 3 ML PEN SC SCH ×4 (08:12→21:00)
[2017-01-07 09:11] VITALS: BP 106/66
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
[2017-01-07 14:53] VITALS: BP 150/78; PULSE 78; TEMP 37; O2SAT 96
[2017-01-07] MEDS: CHOLECALCIFEROL 1000 INTER.UNIT TAB PO SCH (20:54)
[2017-01-07] MEDS: LACTOBACILLUS ACIDOPHILUS (FLORANEX) TAB PO SCH (20:54)
[2017-01-07] MEDS: SERTRALINE HCL 50 MG TAB PO SCH (20:54)
[2017-01-07] MEDS: ASPIRIN 81 MG ECTAB PO SCH (20:54)
[2017-01-07] MEDS: CEFDINIR 300 MG CAP PO SCH (20:54)
[2017-01-07] MEDS: ATORVASTATIN 40 MG TAB PO SCH (20:54)
[2017-01-07] MEDS: ENOXAPARIN 40 MG/0.4 ML SYR SQ SCH (20:55)
[2017-01-07] MEDS: INSULIN GLARGINE SOLOSTAR 100 UNITS/ML 3 ML PEN SC SCH (20:59)
[2017-01-07] MEDS: ACETAMINOPHEN 325 MG TAB PO PRN (21:01)
[2017-01-07 23:07] VITALS: BP 109/68; PULSE 84; TEMP 36.9; O2SAT 96
--- NOTE | 2017-01-07 23:26 | Progress Note ---
Medicine Progress Note Date & Time of Visit: January 07, 2017 at 16:03. Subjective denies chest pain, shortness of breath Tolerating PO and eating well spoke with daughter who is fearful that this move will upset her Tried to console her Objective Last 8 Hrs Date Time Temp Pulse Resp B/P Pulse Ox O2 Delivery O2 Flow Rate FiO2 01/07/17 14:53 37.0 78 18 150/78 96 Room Air 01/07/17 08:15 Room Air Physical Exam: GEN: WNWD, in no acute distress, alert and appropriate HEENT: NC/AT, normal sclerae CARDIO: reg rate, S1/2 heard without m/g/r LUNGS: CTA bilaterally, no crackles, rales or wheezes, guarded diaphragmatic excursion CHEST WALL: anterior chest wall is TTP under right breast ABD: soft, non-tender, non-distended, no rebound or guarding EXTREMITY: no LE swelling or edema, extremities are warm and well-perfused NEURO: no focal deficits. MUSC: no gross focal deficits, she was able to sit up on the side of the bed with ease SKIN: warm and dry Laboratory Results: Test 01/07/17 19:46 Bedside Glucose 103 mg/dl (70-90) Last 24 Hours Test 01/06/17 16:41 01/06/17 19:52 01/07/17 07:15 01/07/17 11:39 Bedside Glucose 126 mg/dl 145 mg/dl 84 mg/dl 109 mg/dl Assessment & Plan 76 yoF with vascular dementia who lives alone presents with presyncope at home with position change and subsequent fall with trauma to her head NEAR-SYNCOPE LIKELY SECONDARY TO ORTHOSTATIC HYPOTENSION vs INFECTION -+ orthostatic hypotension in ED -likely multifactorial 2/2 poor PO intake at home (pt doesn't cook or feed herself and is completely dependent on family members who are overwhelmed) and autonomic neuropathy from long-standing diabetes. -CT head negative and CXR no acute fx -IVF were continued, however, she is tolerating PO so will stop these now. -will give one more day prior to restarting lisinopril as pressures are controlled. -fall precautions -PT/OT evals -->PT was sent away by patient this morning and have not been able to evaluate her yet. -began treatment for UTI earlier this morning with some possible improvement DEMENTIA: progressive, likely vascular. Aricept was tried by Dr. Rogers as outpatient which made her stomach upset. As she was starting to lose weight, her daughter stopped it. Per reevaluation by Dr. Rogers, Josee would not add benefit. Not capable of making her own decisions which means FELICITA (yadi) takes over control of decision making. UTI: patient denies current UTI symptoms but states that she gets frequent UTIs In the setting of a fall, presyncope and some reports of AMS by daughter will treat empirically with Rocephin and taper based on abx results--Omnicef started tonight. . L rib pain-CXR is negative for rib fractures, but this may not be sensitive enough of an imaging study, and rib fractures are possible with recent fall and subsequent pain. Patient and daughter agree that since CT chest will not change our management, we will not pursue this to look for rib fractures. Pain control as needed, and currently she is declining, which is fine. However, if she becomes delirious, consider pain being too much and would schedule APAP or something with least amount of side effects in case the pain is the cause. CKD STAGE IV -creatinine around baseline at 1.4, cont ACEI -monitor with daily prp and avoid nephrotoxic agents when able DM 2 -recent A1C 7.3 -cont Lantus but hold Bydureon (only on these two at home with min reports of low blood sugars, A1C is 7.3 which is appropriate control) -cont ISS -monitor BSG AC HS CAD -s/p stent placement in 2010 -cont ASA and statin -pt currently denies anginal sxs DEPRESSION -cont Zoloft HTN -controlled -hold lisinopril for now using caution with recent orthostatic hypotension -monitor DYSLIPIDEMIA -cont statin TOBACCO USE: active smoker which poses an additional risk for her at home in addition to the obvious health risks. Encouraged to quit. DVT PROPHYLAXIS -subq Lovenox CODE STATUS -FULL CODE per discussion with patient upon admission [facility] Consultants: Mental Health Current Inpatient Medications: Current Inpatient Medications Medications (Trade) Dose Ordered Sig/Brenda Route Start Time Stop Time Status Last Admin Dose Admin Enoxaparin Sodium (Lovenox Inj) 40 mg Q24H SQ 01/05/17 21:00 02/04/17 20:59 01/06/17 20:36 40 MG Acetaminophen (Tylenol Tab) 650 mg Q4H PRN PO 01/05/17 14:30 02/04/17 14:29 Ondansetron HCl (Zofran Inj) 4 mg Q6H PRN IV 01/05/17 14:30 02/04/17 14:29 01/05/17 22:33 4 MG Insulin Aspart (novoLOG ASPART) SLIDING SCALE If C... ACHS SC 01/05/17 16:30 02/04/17 16:29 01/07/17 12:09 1 UNITS Glucose (Glucose 40% Gel) 15-30 GRAMS 15 GRAMS... UD PRN PO 01/05/17 14:30 02/04/17 14:29 Glucose (Glucose Chew Tab) 4-8 Tablets 4 Tabl... UD PRN PO 01/05/17 14:30 02/04/17 14:29 Dextrose (Dextrose 50% 50ML Syringe) 25-50ML OF 50% DW IV FOR... UD PRN IV 01/05/17 14:30 02/04/17 14:29 Glucagon (Glucagon Inj) 1 mg UD PRN SQ 01/05/17 14:30 02/04/17 14:29 Aspirin (Ecotrin Tab) 81 mg QPM PO 01/05/17 21:00 02/04/17 20:59 01/06/17 20:33 81 MG Atorvastatin Calcium (Lipitor Tab) 80 mg QPM PO 01/05/17 21:00 02/04/17 20:59 01/06/17 20:34 80 MG Cholecalciferol (Vitamin D Tab) 1,000 inter.unit QPM PO 01/05/17 21:00 02/04/17 20:59 01/06/17 20:34 1,000 INTER.UNIT Hydroxyzine HCl (Vistaril Tab) 25 mg DAILY PRN PO 01/05/17 14:30 02/04/17 14:29 Sertraline HCl (Zoloft Tab) 50 mg QPM PO 01/05/17 21:00 02/04/17 20:59 01/06/17 20:33 50 MG Lactobacillus Acidophilus (Floranex Tab) 1 tab QPM PO 01/05/17 21:00 02/04/17 20:59 01/06/17 20:33 1 TAB Miscellaneous (Iv Fluids Completed) 1 ea PRN PRN N/A 01/05/17 15:00 01/05/18 14:59 Insulin Glargine (Lantus Solostar Pen) 22 unit QPM SC 01/05/17 21:00 02/04/17 20:59 01/06/17 20:39 22 UNIT Cefdinir (Cefdinir) 300 mg Q12 PO 01/07/17 21:00 01/14/17 20:59
[2017-01-08 06:20] LABS: HEMATOCRIT 39.9 % (37-47); MEAN CELL VOLUME 89.5 fL (80-100); MEAN CORPUSCULAR HGB CONC 31.3 g/dl (32-36); MEAN PLATELET VOLUME 10.3 fL (7.4-10.4); PLATELET COUNT 214 K/uL (130-400); RED BLOOD COUNT 4.46 M/uL (4.2-5.4); WHITE BLOOD COUNT 7.15 K/uL (4.8-10.8)
[2017-01-08 06:47] LABS: BUN/CREATININE RATIO 16.2 (10-20); CREATININE 1.1 mg/dl (0.60-1.20); MAGNESIUM 1.9 mg/dl (1.8-2.4)
[2017-01-08 08:00] VITALS: BP 126/75; PULSE 81; TEMP 37.3; O2SAT 96
[2017-01-08] MEDS: CEFDINIR 300 MG CAP PO SCH ×2 (08:59→20:10)
[2017-01-08] MEDS: INSULIN ASPART 100 UNITS/ML 3 ML PEN SC SCH ×4 (09:03→20:55)
[2017-01-08] MEDS: ACETAMINOPHEN 325 MG TAB PO PRN ×2 (09:08→23:39)
--- NOTE | 2017-01-08 14:51 | Progress Note ---
Medicine Progress Note Date & Time of Visit: January 08, 2017 at 12:28. Subjective -pt doing well today without complaints -she is in good spirits -we discussed allowing her to shower today with assistance and she agrees that she would like to do that -cont daily PT efforts. Objective Last 8 Hrs Date Time Temp Pulse Resp B/P Pulse Ox O2 Delivery O2 Flow Rate FiO2 01/08/17 08:00 96 Room Air 01/08/17 08:00 37.3 81 18 126/75 96 Room Air Physical Exam: GEN: WNWD, in no acute distress, alert and appropriate HEENT: NC/AT, normal sclerae CARDIO: reg rate, S1/2 heard without m/g/r LUNGS: CTA bilaterally, no crackles, rales or wheezes, guarded diaphragmatic excursion CHEST WALL: anterior chest wall is TTP under right breast ABD: soft, non-tender, non-distended, no rebound or guarding EXTREMITY: no LE swelling or edema, extremities are warm and well-perfused NEURO: no focal deficits. MUSC: no gross focal deficits, she was able to sit up on the side of the bed with ease SKIN: warm and dry Laboratory Results: 01/08/17 06:01 01/08/17 06:01 Test 01/05/17 10:30 01/05/17 16:05 01/08/17 06:01 01/08/17 11:33 Immature Granulocyte % (Auto) 0.4 % White Blood Count 11.37 K/uL (4.8-10.8) Red Blood Count 4.49 M/uL (4.2-5.4) 4.46 M/uL (4.2-5.4) Hemoglobin 13.4 g/dL (12.0-16.0) Hematocrit 40.4 % (37-47) Mean Corpuscular Volume 90.0 fL (80-100) 89.5 fL (80-100) Mean Corpuscular Hemoglobin 29.8 pg (25-34) 28.0 pg (25-34) Mean Corpuscular Hemoglobin Concent 33.2 g/dl (32-36) 31.3 g/dl (32-36) Platelet Count 220 K/uL (130-400) Mean Platelet Volume 11.1 fL (7.4-10.4) 10.3 fL (7.4-10.4) Neutrophils (%) (Auto) 64.5 % Lymphocytes (%) (Auto) 22.8 % Monocytes (%) (Auto) 9.9 % Eosinophils (%) (Auto) 1.9 % Basophils (%) (Auto) 0.5 % Neutrophils # (Auto) 7.33 K/uL (1.4-6.5) Lymphocytes # (Auto) 2.59 K/uL (1.2-3.4) Monocytes # (Auto) 1.12 K/uL (0.11-0.59) Eosinophils # (Auto) 0.22 K/uL (0-0.5) Basophils # (Auto) 0.06 K/uL (0-0.2) Immature Granulocyte # (Auto) 0.05 K/uL (0.00-0.02) Total Bilirubin 1.0 mg/dl (0.2-1) Aspartate Amino Transf (AST/SGOT) 12 U/L (15-37) Alanine Aminotransferase (ALT/SGPT) 17 U/L (12-78) Alkaline Phosphatase 98 U/L (45-117) Total Creatine Kinase 57 U/L (26-192) Creatine Kinase MB 0.8 ng/ml (0.5-3.6) Creatine Kinase MB Ratio 1.4 (0-3.0) Troponin I < 0.015 ng/ml (0-0.045) Total Protein 7.1 gm/dl (6.4-8.2) Albumin 3.6 gm/dl (3.4-5.0) Globulin 3.5 gm/dl (2.5-4.0) Albumin/Globulin Ratio 1.0 (0.9-2) Thyroid Stimulating Hormone (TSH) 0.951 uIu/ml (0.300-4.500) Free Thyroxine 1.22 ng/dl (0.80-1.60) Urine Color YELLOW Urine Appearance TURBID (CLEAR) Urine pH 7.0 (4.5-7.5) Urine Specific Dalton 1.015 (1.000-1.030) Urine Protein 1+ (NEG) Urine Glucose (UA) NEG (NEG) Urine Ketones NEG (NEG) Urine Occult Blood NEG (NEG) Urine Nitrite NEG (NEG) Urine Bilirubin NEG (NEG) Urine Urobilinogen NEG (NEG) Urine Leukocyte Esterase LARGE (NEG) Urine WBC (Auto) >30 /hpf (0-5) Urine RBC (Auto) 0-4 /hpf (0-4) Urine Hyaline Casts (Auto) 1-5 /lpf (0-5) Urine Epithelial Cells (Auto) >30 /lpf (0-5) Urine Bacteria (Auto) 2+ (NEG) RDW Standard Deviation 47.2 fL (36.4-46.3) RDW Coefficient of Variation 14.4 % (11.5-14.5) Anion Gap 4.0 mmol/L (3-11) Est Creatinine Clear Calc Drug Dose 41.7 ml/min Estimated GFR () 56.1 Estimated GFR (Non- 48.4 BUN/Creatinine Ratio 16.2 (10-20) Calcium Level 9.0 mg/dl (8.5-10.1) Magnesium Level 1.9 mg/dl (1.8-2.4) 25-Hydroxy Vitamin D Total 33.2 ng/ml (30-100) Bedside Glucose 141 mg/dl (70-90) Date/Time Source Procedure Growth Status 01/05/17 16:05 Urine , Clean Catch Urine Culture - Final Escherichia Coli Complete Last 24 Hours Test 01/07/17 16:11 01/07/17 19:46 01/08/17 06:01 01/08/17 07:12 Bedside Glucose 101 mg/dl 103 mg/dl 99 mg/dl White Blood Count 7.15 K/uL Red Blood Count 4.46 M/uL Hemoglobin 12.5 g/dL Hematocrit 39.9 % Mean Corpuscular Volume 89.5 fL Mean Corpuscular Hemoglobin 28.0 pg Mean Corpuscular Hemoglobin Concent 31.3 g/dl RDW Standard Deviation 47.2 fL RDW Coefficient of Variation 14.4 % Platelet Count 214 K/uL Mean Platelet Volume 10.3 fL Sodium Level 143 mmol/L Potassium Level 4.0 mmol/L Chloride Level 108 mmol/L Carbon Dioxide Level 31 mmol/L Anion Gap 4.0 mmol/L Blood Urea Nitrogen 18 mg/dl Creatinine 1.10 mg/dl Est Creatinine Clear Calc Drug Dose 41.7 ml/min Estimated GFR () 56.1 Estimated GFR (Non- 48.4 BUN/Creatinine Ratio 16.2 Random Glucose 110 mg/dl Calcium Level 9.0 mg/dl Magnesium Level 1.9 mg/dl 25-Hydroxy Vitamin D Total 33.2 ng/ml Test 01/08/17 11:33 Bedside Glucose 141 mg/dl Assessment & Plan 76 yoF with vascular dementia presents with UTI after fall at home. NEAR-SYNCOPE LIKELY SECONDARY TO ORTHOSTATIC HYPOTENSION vs INFECTION 01/08: no lightheadedness and she is pretty stable standing up at the bedside today -plan is to go to SNF in light of worsening dementia and inability to care for herself -SNF has not accepted yet, so she will be here through the weekend. -+ orthostatic hypotension in ED -likely multifactorial 2/2 poor PO intake at home (pt doesn't cook or feed herself and is completely dependent on family members who are overwhelmed) and autonomic neuropathy from long-standing diabetes. -CT head negative and CXR no acute fx -will cont to hold lisinopril as pressures have been controlled without it, and I am fearful of precipitating more falls/lightheadedness. -cont fall precautions -appreciate PT/OT recs -cont with abx for UTI DEMENTIA: progressive, likely vascular. Aricept was tried by Dr. Rogers as outpatient which made her stomach upset. As she was starting to lose weight, her daughter stopped it. Per reevaluation by Dr. Rogers, Namenda would not add benefit. Not capable of making her own decisions which means POA (dauhger) takes over control of decision making. UTI: patient denies current UTI symptoms but states that she gets frequent UTIs Cont with Omnicef-she is tolerating this without difficulty L rib pain-persistent, poss occult rib fracture after fall. Cont supportive measures. CKD STAGE IV -creatinine around baseline at 1.4 DM 2 -recent A1C 7.3 -cont Lantus but hold Bydureon (only on these two at home with min reports of low blood sugars, A1C is 7.3 which is appropriate control) -cont ISS -monitor BSG AC HS CAD -s/p stent placement in 2010 -cont ASA and statin -pt currently denies anginal sxs DEPRESSION -cont Zoloft HTN: controlled, cont holding lisinopril as above. DYSLIPIDEMIA cont statin TOBACCO USE: active smoker which poses an additional risk for her at home in addition to the obvious health risks. Encouraged to quit. DVT PROPHYLAXIS -subq Lovenox CODE STATUS -FULL CODE per discussion with patient upon admission DO [facility] Hospital[facility] Consultants: Mental Health Current Inpatient Medications: Current Inpatient Medications Medications (Trade) Dose Ordered Sig/Brenda Route Start Time Stop Time Status Last Admin Dose Admin Enoxaparin Sodium (Lovenox Inj) 40 mg Q24H SQ 01/05/17 21:00 02/04/17 20:59 01/07/17 20:55 40 MG Acetaminophen (Tylenol Tab) 650 mg Q4H PRN PO 01/05/17 14:30 02/04/17 14:29 01/08/17 09:08 650 MG Ondansetron HCl (Zofran Inj) 4 mg Q6H PRN IV 01/05/17 14:30 02/04/17 14:29 01/05/17 22:33 4 MG Insulin Aspart (novoLOG ASPART) SLIDING SCALE If C... ACHS SC 01/05/17 16:30 02/04/17 16:29 01/08/17 09:03 1 UNITS Glucose (Glucose 40% Gel) 15-30 GRAMS 15 GRAMS... UD PRN PO 01/05/17 14:30 02/04/17 14:29 Glucose (Glucose Chew Tab) 4-8 Tablets 4 Tabl... UD PRN PO 01/05/17 14:30 02/04/17 14:29 Dextrose (Dextrose 50% 50ML Syringe) 25-50ML OF 50% DW IV FOR... UD PRN IV 01/05/17 14:30 02/04/17 14:29 Glucagon (Glucagon Inj) 1 mg UD PRN SQ 01/05/17 14:30 02/04/17 14:29 Aspirin (Ecotrin Tab) 81 mg QPM PO 01/05/17 21:00 02/04/17 20:59 01/07/17 20:54 81 MG Atorvastatin Calcium (Lipitor Tab) 80 mg QPM PO 01/05/17 21:00 02/04/17 20:59 01/07/17 20:54 80 MG Cholecalciferol (Vitamin D Tab) 1,000 inter.unit QPM PO 01/05/17 21:00 02/04/17 20:59 01/07/17 20:54 1,000 INTER.UNIT Hydroxyzine HCl (Vistaril Tab) 25 mg DAILY PRN PO 01/05/17 14:30 02/04/17 14:29 Sertraline HCl (Zoloft Tab) 50 mg QPM PO 01/05/17 21:00 02/04/17 20:59 01/07/17 20:54 50 MG Lactobacillus Acidophilus (Floranex Tab) 1 tab QPM PO 01/05/17 21:00 02/04/17 20:59 01/07/17 20:54 1 TAB Miscellaneous (Iv Fluids Completed) 1 ea PRN PRN N/A 01/05/17 15:00 01/05/18 14:59 Insulin Glargine (Lantus Solostar Pen) 22 unit QPM SC 01/05/17 21:00 02/04/17 20:59 01/07/17 20:59 22 UNIT Cefdinir (Cefdinir) 300 mg Q12 PO 01/07/17 21:00 01/14/17 20:59 01/08/17 08:59 300 MG
[2017-01-08 15:51] VITALS: BP 119/73; PULSE 81; TEMP 37.1; O2SAT 97
[2017-01-08] MEDS: ATORVASTATIN 40 MG TAB PO SCH (20:10)
[2017-01-08] MEDS: SERTRALINE HCL 50 MG TAB PO SCH (20:10)
[2017-01-08] MEDS: LACTOBACILLUS ACIDOPHILUS (FLORANEX) TAB PO SCH (20:10)
[2017-01-08] MEDS: ASPIRIN 81 MG ECTAB PO SCH (20:10)
[2017-01-08] MEDS: CHOLECALCIFEROL 1000 INTER.UNIT TAB PO SCH (20:10)
[2017-01-08] MEDS: ENOXAPARIN 40 MG/0.4 ML SYR SQ SCH (20:11)
[2017-01-08] MEDS: INSULIN GLARGINE SOLOSTAR 100 UNITS/ML 3 ML PEN SC SCH (20:56)
[2017-01-08 23:17] VITALS: BP 144/84; PULSE 78; TEMP 36.9; O2SAT 95
[2017-01-09] VITALS: O2SAT 96
[2017-01-09 07:56] VITALS: BP 91/58; PULSE 84; TEMP 37; O2SAT 95
[2017-01-09] MEDS: CEFDINIR 300 MG CAP PO SCH ×2 (08:51→20:26)
[2017-01-09] MEDS: INSULIN ASPART 100 UNITS/ML 3 ML PEN SC SCH ×4 (09:23→20:28)
--- NOTE | 2017-01-09 10:11 | Psychiatric Progress Notes ---
Psychiatric Progress Note Date of Service January 09, 2017. Notes ID: Patient reviewed with liaison nurse. Initial consult completed on 01/07 by NADINE Perez. CC: "I'm ready to go home" HPI: patient commenting on daily events in paper, her and mother's experience with serbian life, brightened as talked about family ROS: denied depression, SI/HI/blanco, etc at this time MSE: oriented to place, self. thoughts concrete, no psychomotor restlessness at this time Imp: same as initial consult Plan: same as initial consult, no changes to Zoloft recommended at this time please call liaison if additional questions/concerns
[2017-01-09 15:50] VITALS: BP 149/83; PULSE 79; TEMP 37.3; O2SAT 96
[2017-01-09] MEDS: LACTOBACILLUS ACIDOPHILUS (FLORANEX) TAB PO SCH (20:24)
[2017-01-09] MEDS: CHOLECALCIFEROL 1000 INTER.UNIT TAB PO SCH (20:24)
[2017-01-09] MEDS: ATORVASTATIN 40 MG TAB PO SCH (20:24)
[2017-01-09] MEDS: ASPIRIN 81 MG ECTAB PO SCH (20:25)
[2017-01-09] MEDS: SERTRALINE HCL 50 MG TAB PO SCH (20:26)
[2017-01-09] MEDS: ENOXAPARIN 40 MG/0.4 ML SYR SQ SCH (20:27)
[2017-01-09] MEDS: INSULIN GLARGINE SOLOSTAR 100 UNITS/ML 3 ML PEN SC SCH (20:41)
--- NOTE | 2017-01-09 22:26 | Progress Note ---
Medicine Progress Note Date & Time of Visit: January 09, 2017 at 18:41. Subjective 76 yo F admitted with a fall -lightheadedness resolved -she is doing well today without symptoms -tolerating PO -awaiting placement to SNF Wednesday Objective Last 8 Hrs Date Time Temp Pulse Resp B/P Pulse Ox O2 Delivery O2 Flow Rate FiO2 01/09/17 16:00 Room Air 01/09/17 15:50 37.3 79 16 149/83 96 Physical Exam: GEN: WNWD, in no acute distress, alert and appropriate, sitting up on side of bed, reading her newspaper HEENT: NC/AT, normal sclerae CARDIO: reg rate, S1/2 heard without m/g/r LUNGS: CTA bilaterally, no crackles, rales or wheezes, guarded diaphragmatic excursion CHEST WALL: anterior chest wall is TTP under right breast ABD: soft, non-tender, non-distended, no rebound or guarding EXTREMITY: no LE swelling or edema, extremities are warm and well-perfused NEURO: no focal deficits. MUSC: no gross focal deficits, she was able to sit up on the side of the bed with ease SKIN: warm and dry Laboratory Results: Test 01/09/17 20:27 Bedside Glucose 145 mg/dl (70-90) Last 24 Hours Test 01/08/17 20:41 01/09/17 07:34 01/09/17 11:24 01/09/17 16:57 Bedside Glucose 223 mg/dl 109 mg/dl 138 mg/dl 182 mg/dl Assessment & Plan 76 yoF with vascular dementia presents with UTI after fall at home. NEAR-SYNCOPE LIKELY SECONDARY TO ORTHOSTATIC HYPOTENSION vs INFECTION-resolved, fall precautions DEMENTIA: progressive, likely vascular. Aricept was tried by Dr. Rogers as outpatient which made her stomach upset. As she was starting to lose weight, her daughter stopped it. Per reevaluation by Dr. Rogers, Namenda would not add benefit. Not capable of making her own decisions which means POA (masood) takes over control of decision making. Pt lives alone so will be dispod to SNF UTI: patient denies current UTI symptoms but states that she gets frequent UTIs ;Cont with Omnicef-she is tolerating this without difficulty L rib pain-persistent, poss occult rib fracture after fall. Cont supportive measures. CKD STAGE IV creatinine around baseline at 1.4 DM 2: ISS/Lantus -sugars are at goal CAD s/p stent placement in 2011: cont ASA and statin DEPRESSION: cont Zoloft HTN: controlled, cont holding lisinopril as above. DYSLIPIDEMIA cont statin TOBACCO USE: active smoker which poses an additional risk for her at home in addition to the obvious health risks. Encouraged to quit. DVT PROPHYLAXIS -subq Lovenox CODE STATUS -FULL CODE per discussion with patient upon admission DO Malorie Doyle Hospitalist Consultants: Mental Health Current Inpatient Medications: Current Inpatient Medications Medications (Trade) Dose Ordered Sig/Brenda Route Start Time Stop Time Status Last Admin Dose Admin Enoxaparin Sodium (Lovenox Inj) 40 mg Q24H SQ 01/05/17 21:00 02/04/17 20:59 01/08/17 20:11 40 MG Acetaminophen (Tylenol Tab) 650 mg Q4H PRN PO 01/05/17 14:30 02/04/17 14:29 01/08/17 23:39 650 MG Ondansetron HCl (Zofran Inj) 4 mg Q6H PRN IV 01/05/17 14:30 02/04/17 14:29 01/05/17 22:33 4 MG Insulin Aspart (novoLOG ASPART) SLIDING SCALE If C... ACHS SC 01/05/17 16:30 02/04/17 16:29 01/09/17 17:46 4 UNITS Glucose (Glucose 40% Gel) 15-30 GRAMS 15 GRAMS... UD PRN PO 01/05/17 14:30 02/04/17 14:29 Glucose (Glucose Chew Tab) 4-8 Tablets 4 Tabl... UD PRN PO 01/05/17 14:30 02/04/17 14:29 Dextrose (Dextrose 50% 50ML Syringe) 25-50ML OF 50% DW IV FOR... UD PRN IV 01/05/17 14:30 02/04/17 14:29 Glucagon (Glucagon Inj) 1 mg UD PRN SQ 01/05/17 14:30 02/04/17 14:29 Aspirin (Ecotrin Tab) 81 mg QPM PO 01/05/17 21:00 02/04/17 20:59 01/08/17 20:10 81 MG Atorvastatin Calcium (Lipitor Tab) 80 mg QPM PO 01/05/17 21:00 02/04/17 20:59 01/08/17 20:10 80 MG Cholecalciferol (Vitamin D Tab) 1,000 inter.unit QPM PO 01/05/17 21:00 02/04/17 20:59 01/08/17 20:10 1,000 INTER.UNIT Hydroxyzine HCl (Vistaril Tab) 25 mg DAILY PRN PO 01/05/17 14:30 02/04/17 14:29 Sertraline HCl (Zoloft Tab) 50 mg QPM PO 01/05/17 21:00 02/04/17 20:59 01/08/17 20:10 50 MG Lactobacillus Acidophilus (Floranex Tab) 1 tab QPM PO 01/05/17 21:00 02/04/17 20:59 01/08/17 20:10 1 TAB Miscellaneous (Iv Fluids Completed) 1 ea PRN PRN N/A 01/05/17 15:00 01/05/18 14:59 Insulin Glargine (Lantus Solostar Pen) 22 unit QPM SC 01/05/17 21:00 02/04/17 20:59 01/08/17 20:56 22 UNIT Cefdinir (Cefdinir) 300 mg Q12 PO 01/07/17 21:00 01/14/17 20:59 01/09/17 08:51 300 MG
[2017-01-09 23:22] VITALS: BP 151/81; PULSE 77; TEMP 37; O2SAT 96
[2017-01-10] MEDS: INSULIN ASPART 100 UNITS/ML 3 ML PEN SC SCH ×4 (06:30→20:58)
[2017-01-10 07:34] VITALS: BP 117/71; PULSE 76; TEMP 37.2; O2SAT 96
[2017-01-10] MEDS: CEFDINIR 300 MG CAP PO SCH ×2 (07:51→20:50)
[2017-01-10 15:19] VITALS: BP 132/83; PULSE 91; TEMP 36.9; O2SAT 97
[2017-01-10] MEDS: ASPIRIN 81 MG ECTAB PO SCH (20:51)
[2017-01-10] MEDS: SERTRALINE HCL 50 MG TAB PO SCH (20:52)
[2017-01-10] MEDS: LACTOBACILLUS ACIDOPHILUS (FLORANEX) TAB PO SCH (20:52)
[2017-01-10] MEDS: ATORVASTATIN 40 MG TAB PO SCH (20:52)
[2017-01-10] MEDS: CHOLECALCIFEROL 1000 INTER.UNIT TAB PO SCH (20:53)
[2017-01-10] MEDS: ENOXAPARIN 40 MG/0.4 ML SYR SQ SCH (20:54)
[2017-01-10] MEDS: INSULIN GLARGINE SOLOSTAR 100 UNITS/ML 3 ML PEN SC SCH (20:57)
--- NOTE | 2017-01-10 22:03 | Progress Note ---
Medicine Progress Note Date & Time of Visit: January 10, 2017 at 18:40. Subjective 76 yo F admitted with a fall -she is doing well today without symptoms -tolerating PO -awaiting placement to SNF Wednesday Objective Last 8 Hrs Date Time Temp Pulse Resp B/P Pulse Ox O2 Delivery O2 Flow Rate FiO2 01/10/17 16:00 Room Air 01/10/17 15:19 36.9 91 17 132/83 97 Room Air Physical Exam: GEN: WNWD, in no acute distress, alert and appropriate, sitting up on side of bed, reading her newspaper HEENT: NC/AT, normal sclerae CARDIO: reg rate, S1/2 heard without m/g/r LUNGS: CTA bilaterally, no crackles, rales or wheezes, guarded diaphragmatic excursion EXTREMITY: no LE swelling or edema, extremities are warm and well-perfused, previous amputations of multiple toes noted NEURO: no focal deficits. MUSC: no gross focal deficits, she was able to sit up on the side of the bed with ease SKIN: warm and dry Laboratory Results: Last 24 Hours Test 01/09/17 20:27 01/10/17 07:34 01/10/17 11:55 01/10/17 16:48 Bedside Glucose 145 mg/dl 88 mg/dl 182 mg/dl 140 mg/dl Assessment & Plan 76 yoF with vascular dementia presents with UTI after fall at home. NEAR-SYNCOPE LIKELY SECONDARY TO ORTHOSTATIC HYPOTENSION vs INFECTION-resolved, fall precautions DEMENTIA: progressive, likely vascular. Aricept was tried by Dr. Rogers as outpatient which made her stomach upset. As she was starting to lose weight, her daughter stopped it. Per reevaluation by Dr. Rogers, Namenda would not add benefit. Not capable of making her own decisions which means POA (dauhtger) takes over control of decision making. Pt lives alone so will be dispod to SNF UTI: patient denies current UTI symptoms but states that she gets frequent UTIs ;Cont with Omnicef-she is tolerating this without difficulty L rib pain-persistent, poss occult rib fracture after fall. Cont supportive measures. CKD STAGE IV creatinine around baseline at 1.4 DM 2: ISS/Lantus -sugars are at goal CAD s/p stent placement in 2010: cont ASA and statin DEPRESSION: cont Zoloft HTN: controlled, cont holding lisinopril as above. DYSLIPIDEMIA cont statin TOBACCO USE: active smoker which poses an additional risk for her at home in addition to the obvious health risks. Encouraged to quit. DVT PROPHYLAXIS -subq Lovenox CODE STATUS -FULL CODE per discussion with patient upon admission DO Malorie Doyle Hospitalist Consultants: Mental Health Current Inpatient Medications: Current Inpatient Medications Medications (Trade) Dose Ordered Sig/Brenda Route Start Time Stop Time Status Last Admin Dose Admin Enoxaparin Sodium (Lovenox Inj) 40 mg Q24H SQ 01/05/17 21:00 02/04/17 20:59 01/09/17 20:27 40 MG Acetaminophen (Tylenol Tab) 650 mg Q4H PRN PO 01/05/17 14:30 02/04/17 14:29 01/08/17 23:39 650 MG Ondansetron HCl (Zofran Inj) 4 mg Q6H PRN IV 01/05/17 14:30 02/04/17 14:29 01/05/17 22:33 4 MG Insulin Aspart (novoLOG ASPART) SLIDING SCALE If C... ACHS SC 01/05/17 16:30 02/04/17 16:29 01/10/17 17:45 2 UNITS Glucose (Glucose 40% Gel) 15-30 GRAMS 15 GRAMS... UD PRN PO 01/05/17 14:30 02/04/17 14:29 Glucose (Glucose Chew Tab) 4-8 Tablets 4 Tabl... UD PRN PO 01/05/17 14:30 02/04/17 14:29 Dextrose (Dextrose 50% 50ML Syringe) 25-50ML OF 50% DW IV FOR... UD PRN IV 01/05/17 14:30 02/04/17 14:29 Glucagon (Glucagon Inj) 1 mg UD PRN SQ 01/05/17 14:30 02/04/17 14:29 Aspirin (Ecotrin Tab) 81 mg QPM PO 01/05/17 21:00 02/04/17 20:59 01/09/17 20:25 81 MG Atorvastatin Calcium (Lipitor Tab) 80 mg QPM PO 01/05/17 21:00 02/04/17 20:59 01/09/17 20:24 80 MG Cholecalciferol (Vitamin D Tab) 1,000 inter.unit QPM PO 01/05/17 21:00 02/04/17 20:59 01/09/17 20:24 1,000 INTER.UNIT Hydroxyzine HCl (Vistaril Tab) 25 mg DAILY PRN PO 01/05/17 14:30 02/04/17 14:29 Sertraline HCl (Zoloft Tab) 50 mg QPM PO 01/05/17 21:00 02/04/17 20:59 01/09/17 20:26 50 MG Lactobacillus Acidophilus (Floranex Tab) 1 tab QPM PO 01/05/17 21:00 02/04/17 20:59 01/09/17 20:24 1 TAB Miscellaneous (Iv Fluids Completed) 1 ea PRN PRN N/A 01/05/17 15:00 01/05/18 14:59 Insulin Glargine (Lantus Solostar Pen) 22 unit QPM SC 01/05/17 21:00 02/04/17 20:59 01/09/17 20:41 22 UNIT Cefdinir (Cefdinir) 300 mg Q12 PO 01/07/17 21:00 01/14/17 20:59 01/10/17 07:51 300 MG
[2017-01-11 00:04] VITALS: BP 111/70; PULSE 84; TEMP 36.5; O2SAT 97
[2017-01-11 00:06] VITALS: O2SAT 97
[2017-01-11 07:35] VITALS: BP 131/78; PULSE 73; TEMP 37.1; O2SAT 94
[2017-01-11] MEDS: CEFDINIR 300 MG CAP PO SCH ×2 (07:50→20:34)
[2017-01-11] MEDS: INSULIN ASPART 100 UNITS/ML 3 ML PEN SC SCH ×4 (08:36→20:32)
[2017-01-11 15:39] VITALS: BP 143/83; PULSE 87; TEMP 37; O2SAT 95
--- NOTE | 2017-01-11 15:51 | Discharge Instructions ---
Discharge Instructions Date of Service January 11, 2017. Admission Reason for Admission: Fall, Orthostatic Hypotension Discharge Discharge Diagnosis / Problem: Multiple falls at home, Progressive vascular dementia, UTI Discharge Goals Goal(s): Prevent Disease Progression Activity Recommendations Activity Limitations: per Instructions/Follow-up section . Instructions / Follow-Up Instructions / Follow-Up Please continue all medications as instructed above. It is recommended that you follow-up with your primary care physician (PCP) within one week of discharge from SNF. It was a pleasure taking care of you! Call if you have any questions or problems. You can reach a [facility] hospitalist on duty at [facility] 24 hours a day by calling [phone]. Take care of yourself. Michelle Lopez DO [facility] Patient's current hospital diet: Diabetes Type 2 Diet, AHA Diet (Heart Healthy) Discharge Diet Recommended Diet: AHA Diet (Heart Healthy), Diabetes Type 2 Diet Pending Studies Studies pending at discharge: no Medical Emergencies . Who to Call and When: Medical Emergencies: If at any time you feel your situation is an emergency, please call 911 immediately. . Non-Emergent Contact Non-Emergency issues call your: Primary Care Provider . . "Provider Documentation" section prepared by Michelle Lopez. . VTE Core Measure Inpt VTE Proph given/why not?: Enoxaparin (Lovenox)SQ
--- NOTE | 2017-01-11 15:59 | Discharge Summary ---
Discharge Summary Date of Service January 11, 2017. Discharge Summary Admission Date: January 05, 2017 Discharge Date: January 11, 2017 Discharge Disposition: halfway facility Principal Diagnosis: Presyncope w/orthostatic hypotension Multiple falls at home AMS-resolved Vascular dementia-progressive Acute UTI-resolved L rib pain s/p trauma with fall DMII CAD s/p stent Depression HTN Hyperlipidemia Active Smoker Procedures: None. Vaccinations: None. Consultations: Mental Health Pending Studies/Follow-Up: see instructions below Medication Reconciliation Continued Medications: Aspirin (Aspirin Chewable) 81 Mg Chew 81 MG PO QPM Atorvastatin (Lipitor) 80 Mg Tab 80 MG PO QPM, TAB Cholecalciferol (Vitamin D3) 1,000 Inter.unit Tab 1000 INTER.UNIT PO QPM Cranberry-Vitamin C-Vitamin E (Cranberry) 1 Cap Cap 1 CAP PO QPM Exenatide (Bydureon) 2 Mg Inj SC WK on sundays Hydroxyzine Hcl (Atarax) 25 Mg Tab 25 MG PO DAILY PRN for PRN, TAB Insulin Glargine (Lantus Solostar) 100 Unit/Ml Inj 22 UNITS SC QPM, PEN Lisinopril (Lisinopril) 2.5 Mg Tab 2.5 MG PO QPM, TAB Nitroglycerin (Nitrostat) 0.4 Mg Tab 0.4 MG UT UD PRN for Chest Pain, BTL Probiotic Product (Trubiotics) 1 Cap Cap 1 CAP PO QPM Sertraline (Zoloft) 50 Mg Tab 50 MG PO QPM, TAB Admission Information HPI (per Admitting provider): This is a 76 y/o female with PMHx of CAD s/p stent placement, DM 2, CKD stage IV , HTN, Dyslipidemia and other problems as outlined below who presents to the ED after a near-syncopal episode this morning. Pt reports that she was getting out of bed this morning when she became lightheaded and dizzy causing her to fall. She did hit her the back of her head but she denies loss of consciousness. She is currently complaining of L rib pain. Per daughter at bedside patient has been falling a lot recently. She noticed patient has not been eating well and she has lost ~20lbs in 5 months. Per daughter, patient does not take care of herself and is very dependent on family members for her care. Pt currently lives at home alone with family coming in multiple times a day. Pt denies fever/ chills, diaphoresis, chest pain, palpitations, SOB, wheezing, abd pain, N/V, bowel or bladder issues, LE edema or calf pain. In the ED, vitals are stable. + orthostatic hypotension. Head CT and CXR are negative for acute process. Pt is stable and will be admitted for further evaluation and treatment. Physical Exam (per Admitting): General Appearance: WD/WN, no apparent distress, + pertinent finding (Pt is sitting up in bed with daughter at bedside) Head: normocephalic, atraumatic Eyes: normal inspection, PERRL, EOMI ENT: hearing grossly normal Neck: supple Respiratory/Chest: lungs clear, normal breath sounds, no respiratory distress, + pertinent finding (tenderness under L breast) Cardiovascular: regular rate, rhythm, no edema, no murmur Abdomen/GI: normal bowel sounds, non tender, soft Back: normal inspection Extremities/Musculoskelatal: normal inspection, no calf tenderness, no pedal edema Neurologic/Psych: alert, normal mood/affect, oriented x 3 Skin: normal color, warm/dry Hospital Course 76 yoF with vascular dementia presents with UTI after fall at home. NEAR-SYNCOPE 2/2 OH with autonomic dysfunction from long-standing DM and UTI- completed course of cefdinir and was kept on fall precautions. DEMENTIA: progressive, likely vascular. Initially admitted and had some altered mental status which resolved with continued treatment after about 2-3 days. Aricept was tried by Dr. Rogers as outpatient which made her stomach upset. As she was starting to lose weight, her daughter stopped it. Per reevaluation by Dr. Rogers, Namenda would not add benefit. Not capable of making her own decisions which means POA (daughter) takes over control of decision making. Pt lives alone so will be dispod to SNF for close monitoring/ rehab efforts. UTI: patient denies current UTI symptoms but states that she gets frequent UTIs ;Cont with Omnicef-she is tolerating this without difficulty. Total 7 day course given L rib pain-persistent, poss occult rib fracture after fall. CXR was negative. Cont supportive measures. TOBACCO USE: active smoker which poses an additional risk for her at home in addition to the obvious health risks. Encouraged to quit. On day of discharge she was afebrile and hemodynamically stable, and was feeling well overall. She had a positive disposition, and was sitting up in bed alert. Physical exam was unremarkable. She was discharged in stable condition to SNF Total time spent on discharge = 60 minutes This includes examination of the patient, discharge planning, medication reconciliation, and communication with other providers. Discharge Instructions Discharge Instructions Date of Service January 11, 2017. Admission Reason for Admission: Fall, Orthostatic Hypotension Discharge Discharge Diagnosis / Problem: Multiple falls at home, Progressive vascular dementia, UTI Discharge Goals Goal(s): Prevent Disease Progression Activity Recommendations Activity Limitations: per Instructions/Follow-up section . Instructions / Follow-Up Instructions / Follow-Up Please continue all medications as instructed above. It is recommended that you follow-up with your primary care physician (PCP) within one week of discharge from SNF. It was a pleasure taking care of you! Call if you have any questions or problems. You can [facility] 24 hours a day by calling [phone]. Take care of yourself. Michelle Lopez DO [facility] Additional Copies To Eleno Peters MD
[2017-01-11] MEDS: ENOXAPARIN 40 MG/0.4 ML SYR SQ SCH (20:33)
[2017-01-11] MEDS: LACTOBACILLUS ACIDOPHILUS (FLORANEX) TAB PO SCH (20:34)
[2017-01-11] MEDS: ASPIRIN 81 MG ECTAB PO SCH (20:35)
[2017-01-11] MEDS: ATORVASTATIN 40 MG TAB PO SCH (20:35)
[2017-01-11] MEDS: SERTRALINE HCL 50 MG TAB PO SCH (20:35)
[2017-01-11] MEDS: CHOLECALCIFEROL 1000 INTER.UNIT TAB PO SCH (20:35)
[2017-01-11] MEDS: INSULIN GLARGINE SOLOSTAR 100 UNITS/ML 3 ML PEN SC SCH (20:37)
[2017-01-11] MEDS ORDERED: LISINOPRIL 2.5 MG TAB PO SCH (21:00)
--- NOTE | 2017-01-11 22:04 | Progress Note ---
Medicine Progress Note Date & Time of Visit: January 11, 2017 at 16:20. Subjective 76 yo F admitted with a fall -asymptomatic -she is doing well today without symptoms -tolerating PO -awaiting placement to SNF Objective Last 8 Hrs Date Time Temp Pulse Resp B/P Pulse Ox O2 Delivery O2 Flow Rate FiO2 01/11/17 15:39 37.0 87 16 143/83 95 Room Air Physical Exam: GEN: WNWD, in no acute distress, alert and appropriate, sitting up on side of bed, reading her newspaper HEENT: NC/AT, normal sclerae CARDIO: reg rate, S1/2 heard without m/g/r LUNGS: CTA bilaterally, no crackles, rales or wheezes, guarded diaphragmatic excursion EXTREMITY: no LE swelling or edema, extremities are warm and well-perfused, previous amputations of multiple toes noted NEURO: no focal deficits. MUSC: no gross focal deficits, she was able to sit up on the side of the bed with ease SKIN: warm and dry Laboratory Results: Last 24 Hours Test 01/10/17 16:48 01/10/17 20:17 01/11/17 07:14 01/11/17 11:20 Bedside Glucose 140 mg/dl 110 mg/dl 96 mg/dl 131 mg/dl Assessment & Plan 76 yoF with vascular dementia presents with UTI after fall at home. NEAR-SYNCOPE LIKELY SECONDARY TO ORTHOSTATIC HYPOTENSION vs INFECTION-resolved, fall precautions DEMENTIA: progressive, likely vascular. Aricept was tried by Dr. Rogers as outpatient which made her stomach upset. As she was starting to lose weight, her daughter stopped it. Per reevaluation by Dr. Rogers, Namenda would not add benefit. Not capable of making her own decisions which means POA (aileener) takes over control of decision making. Pt lives alone so will be dispod to SNF UTI-asymptomatic, finishing 7 day course of omnicef L rib pain-persistent, poss occult rib fracture after fall. Cont supportive measures. CKD STAGE IV creatinine around baseline at 1.4 DM 2: ISS/Lantus -sugars are at goal CAD s/p stent placement in 2010: cont ASA and statin DEPRESSION: cont Zoloft HTN: controlled,lisinopril 2.5 restarted today DYSLIPIDEMIA cont statin TOBACCO USE: active smoker which poses an additional risk for her at home in addition to the obvious health risks. Encouraged to quit. DVT PROPHYLAXIS -subq Lovenox CODE STATUS -FULL CODE per discussion with patient upon admission Dispo-to [facility] in am DO Malorie Doyle Hospitalist Consultants: Mental Health Procedures: None. Vaccinations: None. Current Inpatient Medications: Current Inpatient Medications Medications (Trade) Dose Ordered Sig/Brenda Route Start Time Stop Time Status Last Admin Dose Admin Enoxaparin Sodium (Lovenox Inj) 40 mg Q24H SQ 01/05/17 21:00 02/04/17 20:59 01/10/17 20:54 40 MG Acetaminophen (Tylenol Tab) 650 mg Q4H PRN PO 01/05/17 14:30 02/04/17 14:29 01/08/17 23:39 650 MG Ondansetron HCl (Zofran Inj) 4 mg Q6H PRN IV 01/05/17 14:30 02/04/17 14:29 01/05/17 22:33 4 MG Insulin Aspart (novoLOG ASPART) SLIDING SCALE If C... ACHS SC 01/05/17 16:30 02/04/17 16:29 01/10/17 17:45 2 UNITS Glucose (Glucose 40% Gel) 15-30 GRAMS 15 GRAMS... UD PRN PO 01/05/17 14:30 02/04/17 14:29 Glucose (Glucose Chew Tab) 4-8 Tablets 4 Tabl... UD PRN PO 01/05/17 14:30 02/04/17 14:29 Dextrose (Dextrose 50% 50ML Syringe) 25-50ML OF 50% DW IV FOR... UD PRN IV 01/05/17 14:30 02/04/17 14:29 Glucagon (Glucagon Inj) 1 mg UD PRN SQ 01/05/17 14:30 02/04/17 14:29 Aspirin (Ecotrin Tab) 81 mg QPM PO 01/05/17 21:00 02/04/17 20:59 01/10/17 20:51 81 MG Atorvastatin Calcium (Lipitor Tab) 80 mg QPM PO 01/05/17 21:00 02/04/17 20:59 01/10/17 20:52 80 MG Cholecalciferol (Vitamin D Tab) 1,000 inter.unit QPM PO 01/05/17 21:00 02/04/17 20:59 01/10/17 20:53 1,000 INTER.UNIT Hydroxyzine HCl (Vistaril Tab) 25 mg DAILY PRN PO 01/05/17 14:30 02/04/17 14:29 Sertraline HCl (Zoloft Tab) 50 mg QPM PO 01/05/17 21:00 02/04/17 20:59 01/10/17 20:52 50 MG Lactobacillus Acidophilus (Floranex Tab) 1 tab QPM PO 01/05/17 21:00 02/04/17 20:59 01/10/17 20:52 1 TAB Miscellaneous (Iv Fluids Completed) 1 ea PRN PRN N/A 01/05/17 15:00 01/05/18 14:59 Insulin Glargine (Lantus Solostar Pen) 22 unit QPM SC 01/05/17 21:00 02/04/17 20:59 01/10/17 20:57 22 UNIT Cefdinir (Cefdinir) 300 mg Q12 PO 01/07/17 21:00 01/14/17 20:59 01/11/17 07:50 300 MG Lisinopril (Zestril Tab) 2.5 mg QPM PO 01/11/17 21:00 02/10/17 20:59 UNV
[2017-01-11 23:34] VITALS: BP_SYST 104; BP_SYST 152; BP_SYST 95; BP_DIAS 58; BP_DIAS 85; PULSE 77; TEMP 37; O2SAT 94
[2017-01-12 07:20] VITALS: BP 116/72; PULSE 80; TEMP 37.3; O2SAT 96
[2017-01-12] MEDS: CEFDINIR 300 MG CAP PO SCH (08:48)
[2017-01-12] MEDS: INSULIN ASPART 100 UNITS/ML 3 ML PEN SC SCH (08:48)
[2017-01-12 10:11] VITALS: BP 116/72; PULSE 80; TEMP 37.3; O2SAT 96
[2017-01-12] MEDS ORDERED: CEFD300C3 PO (10:31)
== END 2017-01-12 11:09 | DRG 690 ==
LOC: ENRESERVDT → ENRESERVTM → C.EDB 09:51 → C.MS2W 14:34 → EDBEDREQ 14:37 → C.MS2W 15:42 → UNDOADMOB 15:42 → OBSVTOIN 01-10 22:05
PROVIDERS: ADMIT Internal Medicine; ATTEND Hospitalist
DX: N39.0 Urinary tract infection, site not specified (principal); N18.4 Chronic kidney disease, stage 4 (severe); I95.1 Orthostatic hypotension; E11.43 Type 2 diabetes mellitus with diabetic autonomic (poly)neuropathy; I25.10 Atherosclerotic heart disease of native coronary artery without angina pectoris; Z95.5 Presence of coronary angioplasty implant and graft; E11.22 Type 2 diabetes mellitus with diabetic chronic kidney disease; E78.5 Hyperlipidemia, unspecified; F32.9 Major depressive disorder, single episode, unspecified; F17.210 Nicotine dependence, cigarettes, uncomplicated; W19.XXXA Unspecified fall, initial encounter; I12.9 Hypertensive chronic kidney disease with stage 1 through stage 4 chronic kidney disease, or unspecified chronic kidney disease; S20.212A Contusion of left front wall of thorax, initial encounter; S09.90XA Unspecified injury of head, initial encounter; F01.50 Vascular dementia, unspecified severity, without behavioral disturbance, psychotic disturbance, mood disturbance, and anxiety; R41.82 Altered mental status, unspecified; R29.6 Repeated falls; Y92.009 Unspecified place in unspecified non-institutional (private) residence as the place of occurrence of the external cause; Z89.429 Acquired absence of other toe(s), unspecified side; Z79.82 Long term (current) use of aspirin; Z79.899 Other long term (current) drug therapy; Z79.4 Long term (current) use of insulin; Z79.84 Long term (current) use of oral hypoglycemic drugs

== ENCOUNTER 2017-11-10 10:50 | Inpatient (IN) | payer BC, OTHER ==
[~2017-11-10] VITALS: Ht 175.3 cm; Wt 82.3 kg
[~2017-11-10 10:50] MED LIST changes: +ATOR-26 PO; -CHOL100010 PO; +DOXY100C76 PO; +EXEN1INJ3 SC; +INSDGIPEN SC; -INSUINJ4 SQ; +LISI2.5T5 PO; +NTRGSL/4 UT; -NVLGI SC; +SERT50TA PO; +VTMD1000 PO
[2017-11-10] MEDS ORDERED: SODIUM CHLORIDE 0.9% 1000ML 1,000 ML IV STA (11:29)
[2017-11-10] MEDS ORDERED: MoRPHine SULFATE 4 MG/ML 1 ML CARP\\VIAL IV STA (11:38)
[2017-11-10 11:40] LABS: HEMATOCRIT 39.3 % (37-47); HEMOGLOBIN 13.4 g/dL (12.0-16.0); MEAN CELL VOLUME 88.5 fL (80-100); MEAN CORPUSCULAR HEMOGLOBIN 30.2 pg (25-34); MEAN CORPUSCULAR HGB CONC 34.1 g/dl (32-36); MEAN PLATELET VOLUME 10.5 fL (7.4-10.4); PLATELET COUNT 211 K/uL (130-400); RED CELL DISTRIBUTION WIDTH CV 14.4 % (11.5-14.5); RED CELL DISTRIBUTION WIDTH SD 46.9 fL (36.4-46.3); WHITE BLOOD COUNT 19.59 K/uL (4.8-10.8)
[2017-11-10 11:47] LABS: CALCIUM 9.7 mg/dl (8.5-10.1); CREATININE 1.29 mg/dl (0.60-1.20); POTASSIUM 3.9 mmol/L (3.5-5.1)
[2017-11-10 11:52] LABS: CKMB 3.7 ng/ml (0.5-3.6)
--- NOTE | 2017-11-10 12:00 | DIAGNOSTIC IMAGING REPORT ---
HEAD WITHOUT CONTRAST (CT) CLINICAL HISTORY: 77 years-old Female with fall. Acute head injury status post fall with confusion TECHNIQUE: Multiple axial CT images of the head were obtained without contrast. A dose lowering technique was utilized adhering to the principles of ALARA. CT DOSE: 614.27 mGy.cm COMPARISON: CT head 01/05/2017. FINDINGS: No acute intracranial hemorrhage, midline shift, intracranial mass, hydrocephalus, territorial ischemia or abnormal extra-axial collection. Mild to moderate atrophy with ill-defined areas of white matter low-attenuation suggesting chronic microvascular ischemic changes. Cerebral vascular calcifications are noted at the level of the skull base. The calvarium is intact. The paranasal sinuses, mastoid air cells, and middle ear cavities are clear. IMPRESSION: No acute intracranial abnormality. The above report was generated using voice recognition software. It may contain grammatical, syntax or spelling errors. Electronically signed by: Hi Dutta M.D. 11/10/2017 11:59 AM Dictated Date/Time: 11/10/2017 11:56 AM
[2017-11-10 12:01] LABS: BASO % 0.3 %; BASO ABS # 0.05 K/uL (0-0.2); EOS % 0.1 %; EOS ABS # 0.01 K/uL (0-0.5); IG# 0.13 K/uL (0.00-0.02); LYMPH % 6.9 %; LYMPH ABS # 1.36 K/uL (1.2-3.4); MONO ABS # 1.18 K/uL (0.11-0.59); NEUT ABS # 16.86 K/uL (1.4-6.5)
--- NOTE | 2017-11-10 12:16 | DIAGNOSTIC IMAGING REPORT ---
CHEST ONE VIEW PORTABLE CLINICAL HISTORY: EVALUATE ALTERED MENTAL STATUS/WEAKNESS dyspnea COMPARISON STUDY: 10/15/2015 FINDINGS: Mild emphysematous change. Slight chronic interstitial prominence. No focal infiltrate. IMPRESSION: Mild emphysematous change. No acute process. The above report was generated using voice recognition software. It may contain grammatical, syntax or spelling errors. Electronically signed by: Cody Hansen M.D. 11/10/2017 12:15 PM Dictated Date/Time: 11/10/2017 12:15 PM
--- NOTE | 2017-11-10 12:22 | DIAGNOSTIC IMAGING REPORT ---
R PELVIS/UNILATERAL HIP 2-3VIEWS HISTORY: 77 years-old Female fall acute pelvic and right-sided hip pain status post fall COMPARISON: Pelvis radiograph 10/09/2011 TECHNIQUE: AP view of the pelvis with 2 views of the right hip FINDINGS: Left hip arthroplasty in satisfactory alignment without evidence of hardware complication. The bones appear mildly demineralized. There is an acute intertrochanteric fracture of the right femur with mild apex lateral angulation of a few degrees. There is mild impaction of approximately 10 mm. Fracture line extends into the lesser and greater trochanters with the lesser trochanter displaced medially 3 mm. The femoral head appears intact. Mild soft tissue swelling about the right hip. No pelvic ring fracture notified. Peripheral vascular disease. Round 2.1 cm calcification overlying the central pelvis may reflect a uterine calcification. Degenerative changes of the lower lumbar spine. IMPRESSION: 1. Acute mildly angulated and impacted fracture of the right intertrochanteric femur. 2. Osteopenic appearance of the bones. 3. Left hip arthroplasty noted without complication. The above report was generated using voice recognition software. It may contain grammatical, syntax or spelling errors. Electronically signed by: Hi Dutta M.D. 11/10/2017 12:21 PM Dictated Date/Time: 11/10/2017 12:18 PM
[2017-11-10 13:09] VITALS: O2SAT 94; BMI 26.3
--- NOTE | 2017-11-10 13:37 | DIAGNOSTIC IMAGING REPORT ---
R KNEE 1 OR 2 VIEWS ROUTINE HISTORY: 77 years-old Female pain, fall acute right knee pain status post fall COMPARISON: Right knee radiographs 12/24/2015 TECHNIQUE: 2 views of the right knee FINDINGS: Severe tricompartmental osteoarthritis. The study is limited secondary to oblique positioning on the crosstable lateral view. Chronic ovoid calcified 2.7 cm ossification is again noted adjacent to the medial femoral metaphysis. No acute fracture or subluxation is identified. Peripheral vascular disease. Bones appear osteopenic. Mild soft tissue swelling. IMPRESSION: 1. Limited study secondary to patient positioning. No definite acute fracture or dislocation identified. 2. Severe tricompartmental osteoarthritis. 3. Mild soft tissue swelling. The above report was generated using voice recognition software. It may contain grammatical, syntax or spelling errors. Electronically signed by: Hi Dutta M.D. 11/10/2017 1:35 PM Dictated Date/Time: 11/10/2017 1:33 PM
--- NOTE | 2017-11-10 13:49 | EMERGENCY ROOM VISIT NOTE ---
History Report prepared by [place]: Keturah Casey Under the Supervision of: Dr. Richard King D.O. First contact with patient: 11:21 Chief Complaint: FALL Stated Complaint: FALL/HIP PAIN History of Present Illness The patient is a 77 year old female who presents to the Emergency Room with complaints of an episode of a fall occurring [employer]. The patient has a history of dementia so the HPI is obtained with the help of the patient's daughters at the bedside. They state that the patient fell sometime throughout the night last night. They think she may have lay on the floor for some time. Her director of audiology found her this morning with dark brown emesis on her nightgown. An ambulance was called and the patient was brought to the ED for further evaluation. The patient is currently complaining of right hip pain, right leg pain, and lower back pain. She rates her pain as an 8/10 in severity. Movement exacerbates her pain. It is unknown if the patient hit her head but she is not currently complaining of any head pain or headache. She denies any rib pain or injury to the upper extremities. Source of History: patient Onset: [employer] Position: other (global) Symptom Intensity: 8/10 Quality: other (fall) Timing: other (episode) Modifying Factors (Worsening): movement Associated Symptoms: + back pain, No headache Note: Pt c/o right hip pain and right leg pain. Pt denies rib pain and upper extremity pain. Review of Systems See HPI for pertinent positives & negatives. A total of 10 systems reviewed and were otherwise negative. Past Medical & Surgical Medical Problems: (1) Achilles Tendon Surgery (2) Benign hypertension (3) Chronic kidney disease stage 4 (4) Depression (5) Diabetes mellitus type 2 (6) Dyslipidemia (7) Multiple falls (8) Post percutaneous transluminal coronary angioplasty (9) Toe amputation status Surgical Problems: (1) H/O colonoscopy (2) H/O esophagogastroduodenoscopy (3) H/O toe surgery (4) S/P tonsillectomy Family History Diabetes mellitus FH: heart disease Social History Smoking Status: Never Smoker Drug Use: none Marital Status: Housing Status: lives alone Occupation Status: retired Current/Historical Medications Scheduled Aspirin (Aspirin Chewable), 81 MG PO QPM Atorvastatin (Lipitor), 80 MG PO QPM Cholecalciferol (Vitamin D3), 1,000 INTER.UNIT PO QPM Doxycycline Monohydrate (Monodox), 100 MG PO BID Exenatide (Bydureon), SC WK Insulin Glargine (Lantus Solostar), 25 UNITS SC QPM Lisinopril (Lisinopril), 2.5 MG PO QPM Probiotic Product (Trubiotics), 1 CAP PO QPM Sertraline (Zoloft), 50 MG PO QPM Allergies Coded Allergies: Cephalosporins (Verified Allergy, Unknown, tolerated Keflex at home, ok for rocephin per dr ho, 01/05/17) [id number] ADMISSION Latex (Verified Allergy, Unknown, "POSSIBLE"- PATIENT DOESN'T REMEMBER BEING ALLERGIC TO LATEX, 01/05/17) PT SAYS SHE "MAY BE" SENSITIVE TO LATEX. Moxifloxacin (Verified Allergy, Unknown, TENDON PAIN, 01/05/17) NSAIDs (Verified Allergy, Unknown, ABDOMINAL PAIN, 01/05/17) Penicillins (Verified Allergy, Unknown, A CHILD, HAD A REACTION, 01/05/17 ) FATHER HAD ANAPHYLACTIC SHOCK TO PCN Quinolones (Verified Allergy, Unknown, UNKNOWN, 01/05/17) Salicylates (Unverified Allergy, Unknown, UNKNOWN, 01/05/17) Sulfa Antibiotics (Verified Allergy, Unknown, PATIENT CAN TAKE LASIX AND GLUCOTROL W/O RXN, 01/05/17) REACTION = TOPICAL "ATE MY SKIN" Sulfamethoxazole (Verified Allergy, Unknown, REACTION WHEN YOUNGER, 01/05/17 ) Ciprofloxacin (Verified Adverse Reaction, Unknown, "DESTROYING MY TENDONS " - ACHILLES TENDON RUPTURES X 4, 01/05/17) Simvastatin (Unverified Adverse Reaction, Unknown, STOMACH CRAMPS, 01/05/17) Physical Exam Vital Signs Date Time Temp Pulse Resp B/P (MAP) Pulse Ox O2 Delivery O2 Flow Rate FiO2 11/10/17 13:36 99 18 170/84 94 Room Air 11/10/17 13:09 94 Room Air 11/10/17 12:24 105 11/10/17 12:20 105 18 186/102 94 Room Air 11/10/17 11:45 106 18 173/109 98 Room Air 11/10/17 10:55 37.5 107 18 202/111 98 Room Air Physical Exam CONSTITUTIONAL/VITAL SIGNS: Reviewed / noted above. GENERAL: Non-toxic in appearance. INTEGUMENTARY: Warm, dry, and [place]. HEAD: Normocephalic. EYES: without scleral icterus or trauma. ENT/OROPHARYNX: clear and moist. LYMPHADENOPATHY/NECK: Is supple without lymphadenopathy or meningismus. RESPIRATORY: Lungs clear and equal. CARDIOVASCULAR: Regular rate and rhythm. GI/ABDOMEN: Soft and nontender. No organomegaly or pulsatile mass. No rebound or guarding. Normal bowel sounds. EXTREMITIES: Shortened and externally rotated right lower extremity. Tenderness to the right hip with palpation. NVI distally. BACK: No CVA tenderness. NEUROLOGICAL: Intact without focal deficits. PSYCHIATRIC: normal affect. MUSCULOSKELETAL: Normally developed with good muscle tone. Medical Decision & Procedures ER Provider Diagnostic Interpretation: Radiology results as stated below per my review and radiologist interpretation: R PELVIS/UNILATERAL HIP 2-3VIEWS HISTORY: 77 years-old Female fall acute pelvic and right-sided hip pain status post fall COMPARISON: Pelvis radiograph 10/09/2011 TECHNIQUE: AP view of the pelvis with 2 views of the right hip FINDINGS: Left hip arthroplasty in satisfactory alignment without evidence of hardware complication. The bones appear mildly demineralized. There is an acute intertrochanteric fracture of the right femur with mild apex lateral angulation of a few degrees. There is mild impaction of approximately 10 mm. Fracture line extends into the lesser and greater trochanters with the lesser trochanter displaced medially 3 mm. The femoral head appears intact. Mild soft tissue swelling about the right hip. No pelvic ring fracture notified. Peripheral vascular disease. Round 2.1 cm calcification overlying the central pelvis may reflect a uterine calcification. Degenerative changes of the lower lumbar spine. IMPRESSION: 1. Acute mildly angulated and impacted fracture of the right intertrochanteric femur. 2. Osteopenic appearance of the bones. 3. Left hip arthroplasty noted without complication. The above report was generated using voice recognition software. It may contain grammatical, syntax or spelling errors. Electronically signed by: Hi Dutta M.D. 11/10/2017 12:21 PM Dictated Date/Time: 11/10/2017 12:18 PM HEAD WITHOUT CONTRAST (CT) CLINICAL HISTORY: 77 years-old Female with fall. Acute head injury status post fall with confusion TECHNIQUE: Multiple axial CT images of the head were obtained without contrast. A dose lowering technique was utilized adhering to the principles of ALARA. CT DOSE: 614.27 mGy.cm COMPARISON: CT head 01/05/2017. FINDINGS: No acute intracranial hemorrhage, midline shift, intracranial mass, hydrocephalus, territorial ischemia or abnormal extra-axial collection. Mild to moderate atrophy with ill-defined areas of white matter low-attenuation suggesting chronic microvascular ischemic changes. Cerebral vascular calcifications are noted at the level of the skull base. The calvarium is intact. The paranasal sinuses, mastoid air cells, and middle ear cavities are clear. IMPRESSION: No acute intracranial abnormality. The above report was generated using voice recognition software. It may contain grammatical, syntax or spelling errors. Electronically signed by: Hi Dutta M.D. 11/10/2017 11:59 AM Dictated Date/Time: 11/10/2017 11:56 AM CHEST ONE VIEW PORTABLE CLINICAL HISTORY: EVALUATE ALTERED MENTAL STATUS/WEAKNESS dyspnea COMPARISON STUDY: 10/15/2015 FINDINGS: Mild emphysematous change. Slight chronic interstitial prominence. No focal infiltrate. IMPRESSION: Mild emphysematous change. No acute process. The above report was generated using voice recognition software. It may contain grammatical, syntax or spelling errors. Electronically signed by: Cody Hansen M.D. 11/10/2017 12:15 PM Dictated Date/Time: 11/10/2017 12:15 PM Laboratory Results 11/10/17 11:10 Red Blood Count 4.44, Mean Corpuscular Volume 88.5, Mean Corpuscular Hemoglobin 30.2, Mean Corpuscular Hemoglobin Concent 34.1, Mean Platelet Volume 10.5, Neutrophils (%) (Auto) 86.0, Lymphocytes (%) (Auto) 6.9, Monocytes (%) (Auto) 6.0, Eosinophils (%) (Auto) 0.1, Basophils (%) (Auto) 0.3, Neutrophils # (Auto) 16.86, Lymphocytes # (Auto) 1.36, Monocytes # (Auto) 1.18, Eosinophils # (Auto) 0.01, Basophils # (Auto) 0.05 11/10/17 11:10 Test 11/10/17 11:10 White Blood Count 19.59 K/uL (4.8-10.8) Red Blood Count 4.44 M/uL (4.2-5.4) Hemoglobin 13.4 g/dL (12.0-16.0) Hematocrit 39.3 % (37-47) Mean Corpuscular Volume 88.5 fL (80-100) Mean Corpuscular Hemoglobin 30.2 pg (25-34) Mean Corpuscular Hemoglobin Concent 34.1 g/dl (32-36) Platelet Count 211 K/uL (130-400) Mean Platelet Volume 10.5 fL (7.4-10.4) Neutrophils (%) (Auto) 86.0 % Lymphocytes (%) (Auto) 6.9 % Monocytes (%) (Auto) 6.0 % Eosinophils (%) (Auto) 0.1 % Basophils (%) (Auto) 0.3 % Neutrophils # (Auto) 16.86 K/uL (1.4-6.5) Lymphocytes # (Auto) 1.36 K/uL (1.2-3.4) Monocytes # (Auto) 1.18 K/uL (0.11-0.59) Eosinophils # (Auto) 0.01 K/uL (0-0.5) Basophils # (Auto) 0.05 K/uL (0-0.2) RDW Standard Deviation 46.9 fL (36.4-46.3) RDW Coefficient of Variation 14.4 % (11.5-14.5) Immature Granulocyte % (Auto) 0.7 % Immature Granulocyte # (Auto) 0.13 K/uL (0.00-0.02) Prothrombin Time 10.4 SECONDS (9.0-12.0) Prothromb Time International Ratio 1.0 (0.9-1.1) Activated Partial Thromboplast Time 25.0 SECONDS (21.0-31.0) Partial Thromboplastin Ratio 1.0 Urine Color YELLOW Urine Appearance CLEAR (CLEAR) Urine pH 5.5 (4.5-7.5) Urine Specific Virgie 1.013 (1.000-1.030) Urine Protein 1+ (NEG) Urine Glucose (UA) 1+ (NEG) Urine Ketones NEG (NEG) Urine Occult Blood TRACE (NEG) Urine Nitrite NEG (NEG) Urine Bilirubin NEG (NEG) Urine Urobilinogen NEG (NEG) Urine Leukocyte Esterase NEG (NEG) Urine WBC (Auto) 0 /hpf (0-5) Urine RBC (Auto) 0-4 /hpf (0-4) Urine Hyaline Casts (Auto) 1-5 /lpf (0-5) Urine Epithelial Cells (Auto) 5-10 /lpf (0-5) Urine Bacteria (Auto) NEG (NEG) Anion Gap 6.0 mmol/L (3-11) Est Creatinine Clear Calc Drug Dose 40.9 ml/min Estimated GFR () 45.9 Estimated GFR (Non- 39.6 BUN/Creatinine Ratio 21.6 (10-20) Calcium Level 9.7 mg/dl (8.5-10.1) Magnesium Level 1.7 mg/dl (1.8-2.4) Total Creatine Kinase 154 U/L (26-192) Creatine Kinase MB 3.7 ng/ml (0.5-3.6) Creatine Kinase MB Ratio 2.4 (0-3.0) Troponin I 0.019 ng/ml (0-0.045) Lipase 121 U/L (73-393) Laboratory results as stated above per my review. Medications Administered Medications (Trade) Dose Ordered Sig/Brenda Route Start Time Stop Time Status Last Admin Dose Admin Sodium Chloride 1,000 ml @ 200 mls/hr Q5H STAT IV 11/10/17 11:29 11/10/17 16:28 11/10/17 11:38 200 MLS/HR Morphine Sulfate (MoRPHine SULFATE INJ) 4 mg NOW STAT IV 11/10/17 11:38 11/10/17 11:39 DC 11/10/17 11:46 4 MG ECG Per My Interpretation Indication: other Rate (beats per minute): 109 Rhythm: sinus tachycardia Findings: no ectopy, other (no ST elevations) ED Course 1121: Previous medical records were reviewed. The patient was evaluated in room C2B. A complete history and physical examination was performed. 1129: NSS 1000 ml @ 200 mls/hr IV 1138: Morphine sulfate 4 mg IV 1241: I reassessed the patient at this time. She is resting more comfortably. I discussed the results and treatment plan with the patient's family. I answered all pertaining questions that they had. They expressed understanding and verbalized agreement. 1244: I spoke with Dr. Arroyo. We discussed the patient's case. The patient will be evaluated by the [facility] for further management. Medical Decision Differential diagnosis: Etiologies such as fracture, dislocation, neurovascular compromise, compartment syndrome, soft tissue injury, as well as others were entertained. This is a 77-year-old female who presents to the ED with a chief complaint of right hip pain after a fall. The patient was found on the floor when the family checked on her this morning. She did vomit a little this morning. The patient denies any presyncopal symptoms. She is a poor historian as she has dementia. Her physical exam reveals a shortened right lower extremity with tenderness to palpation in the right hip. She also has some discomfort with palpation the right knee. There is an abrasion on the right knee. She has no findings to suggest head injury. No upper extremity injury or chest wall injury. Abdomen soft and nontender. The patient's evaluation included blood work that was unremarkable. White blood cell count was 19,000. EKG showed a sinus rhythm at a rate of 108. No ischemic changes. Urine did not show infection. Troponin was negative. X-ray of the hip and pelvis reveals a right intertrochanteric hip fracture. X-ray of the right knee did not show fracture. Chest x-ray was without acute disease. CT scan of the brain did not show acute process or trauma. The patient was seen by the hospitalist service for further evaluation as well as orthopedics. Medication Reconcilliation Current Medication List: was personally reviewed by me Blood Pressure Screening Patient's blood pressure: Elevated blood pressure Blood pressure disposition: Referred to PCP Consults Time Called: 1240 Consulting Physician: Dr. Arroyo Returned Call: [address] Arroyo. We discussed the patient's case. The patient will be evaluated by the [facility] for further management. Impression Primary Impression: Hip fracture, right Scribe Attestation The scribe's documentation has been prepared under my direction and personally reviewed by me in its entirety. I confirm that the note above accurately reflects all work, treatment, procedures, and medical decision making performed by me. Departure Information Dispostion Being Evaluated By Hospitalist Referrals Eleno Peters MD (PCP) Patient Instructions My [facility]
[2017-11-10] MEDS ORDERED: POLYETHYLENE (MIRALAX) 17 GM PACK PO PRN (15:15)
[2017-11-10] MEDS ORDERED: MAGNESIUM HYDROXIDE SUSP 30 ML UDC PO PRN (15:15)
[2017-11-10] MEDS ORDERED: NALOXONE HCL 0.4 MG/1 ML VIAL/CARP IV PRN (15:15)
[2017-11-10] MEDS ORDERED: ONDANSETRON INJ 2 MG/ML 2 ML VIAL IV PRN (15:15)
[2017-11-10] MEDS ORDERED: SOD PHOSPHATE/SOD BIPHOSPHATE ENEMA 132 ML BTL PR PRN (15:15)
[2017-11-10] MEDS ORDERED: BISACODYL 10 MG SUPP PR PRN (15:15)
[2017-11-10] MEDS ORDERED: HYDR-3124 PO (15:20)
[2017-11-10] MEDS ORDERED: METR0.754 TOP (15:20)
[2017-11-10] MEDS ORDERED: SERT-234 PO (15:20)
[2017-11-10] MEDS ORDERED: PHARMACY GLYCEMIC MGMT CONSULT SCH (15:30)
[2017-11-10] MEDS ORDERED: GLUCOSE 40% GEL 15 GM TUBE PO PRN (15:30)
[2017-11-10] MEDS ORDERED: GLUCAGON FOR INJ 1 MG VIAL SQ PRN (15:30)
[2017-11-10] MEDS ORDERED: GLUCOSE 10 TABS/TUBE PO PRN (15:30)
[2017-11-10 16:30] VITALS: BP 174/77; PULSE 94; TEMP 37.4; O2SAT 94
--- NOTE | 2017-11-10 16:55 | DIAGNOSTIC IMAGING REPORT ---
RIGHT FOOT 2 VIEWS CLINICAL HISTORY: Plantar foot wound. FINDINGS: AP and lateral portable views of the right foot are compared to study dated 09/20/2015. The skeletal structures are osteopenic. No fracture is seen. There has been amputation of the first toe at the level of the interphalangeal joint. Hammertoe deformities are seen in the second through fifth toes. No bony erosion or periostitis is identified. Advanced arthritic change is seen at the first metatarsophalangeal joint. Chronic posttraumatic deformity is suggested in the fourth proximal phalanx. There are dorsal and plantar calcaneal enthesophytes. Degenerative spurring is seen along the dorsal aspect of the tarsal bones. A surgical anchor is seen in the lateral malleolus. Soft tissue edema is present throughout the foot. There is atherosclerotic calcification of the regional arteries. IMPRESSION: 1. Soft tissue edema with no acute bony abnormality seen in the right foot. 2. Osteopenia, arthritic change, postoperative change, and heel spurs as above. Electronically signed by: He Alfredo M.D. 11/10/2017 4:54 PM Dictated Date/Time: 11/10/2017 4:49 PM
[2017-11-10] MEDS: SODIUM CHLORIDE 0.9% 1000ML 1,000 ML IV SCH (17:11)
[2017-11-10] MEDS: MAGNESIUM SULFATE 1GM / D5W 1 GM in PREMIXED IN D5W 100 ML IV SCH ×2 (17:12→17:59)
--- NOTE | 2017-11-10 17:31 | Progress Note ---
Progress Note Date of Service Nov 10, 2017. Progress Note Pt is a 77 yo female who was found on the floor after a fall by her daughter today. Pt now with right intertrochanteric femur fracture and is scheduled for surgery tentatively tomorrow. Pt also was found with some coffee ground emesis on her gown today, so there is also a question of a GI workup prior to the hip surgery. Pt PMH is significant for dementia, long time 60+ years smoking history , probable emphysema, CAD s/p cath in 2010 with stent placement, HTN, XOL, CVA, DM type II, and CKD stage IV. History was obtained from pt's 2 daughters who were at bedside. Explained to pt's daughters about the anesthesia plan including all risks/benefits for both EGD and hip surgery. All questions were answered and consent was signed by her daughter who was POA. Cardiac workups including echo is still pending. Will know plan better once all workups are done.
[2017-11-10] MEDS: INSULIN ASPART 100 UNITS/ML 3 ML PEN SC SCH ×2 (17:57→21:04)
--- NOTE | 2017-11-10 18:21 | ORTHOPEDIC CONSULTATION ---
DATE OF CONSULTATION: 11/10/2017 HISTORY OF PRESENT ILLNESS: This is a 77-year-old female seen at the request of the medical service and Dr. Poole and Dr. Peters. This 77-year-old female who had a fall at home sometime last night. She was found this morning with dark brown emesis on her night gown. She was transferred to [facility], presented to the Emergency Department where she was evaluated and radiographs were obtained of the right hip. The patient noted to have a displaced intertrochanteric hip fracture, was admitted to the hospitalist service. Denied any head or neck pain; no nausea, vomiting, diarrhea, shortness of breath or chest pain. PAST MEDICAL HISTORY: Achilles tendon surgery, benign hypertension, chronic kidney disease stage IV, depression, diabetes mellitus type 2, dyslipidemia, multiple falls, neuropathy, bilateral feet ulceration, right fifth metatarsal under care of wound care center. PAST SURGICAL HISTORY: Left total hip arthroplasty, Achilles tendon surgery, history of percutaneous transluminal coronary angioplasty, multiple toe amputations, colonoscopy, EGD and tonsillectomy. ALLERGIES: TO CEPHALOSPORINS with history of Keflex and Rocephin without difficulty. LATEX, possible; MOXIFLOXACIN WITH TENDON PAIN; NSAIDs, ABDOMINAL PAIN; PENICILLINS, A CHILD WITH REACTION, FATHER HAD ANAPHYLACTIC SHOCK TO PENICILLIN; QUINOLONES, UNKNOWN, SALICYLATES, UNKNOWN; SULFA ANTIBIOTICS. The patient can take Lasix and Glucotrol without reaction; REACTION TOPICAL, SKIN INFLAMMATION AND IRRITATION; SULFAMETHOXAZOLE, SKIN REACTION WHEN YOUNGER; CIPROFLOXACIN, TENDON PAIN AND TENDON RUPTURES; SIMVASTATIN, STOMACH CRAMPS. MEDICATIONS: Please note the medications list in the medical record in addition to aspirin 81 mg p.o. q.p.m., Lipitor, vitamin D, doxycycline, Bydureon, insulin, Lantus SoloSTAR, lisinopril 2.5 mg daily, probiotics and Zoloft 50 mg q.p.m. SOCIAL HISTORY: Smokes occasionally. Denies drug use. Alcohol rarely. She is . She is retired. She lives alone. PHYSICAL EXAMINATION: GENERAL: This is a 77-year-old female seen at bedside with her daughters present. She is alert and oriented x3. Speech clear and fluent. Affect is appropriate. She is currently eating dinner. EXTREMITIES: Examination of the right hip demonstrates slight shortening and internal rotation of the right hip. She has positive log roll, positive heel strike test. Pain with active and passive range of motion of the right hip. Dorsalis pedis and posterior pulses are palpable. She has an abrasion to the anteromedial aspect of her right knee. She has multiple toe amputations with a 6-8 mm diameter ulceration in plantar aspect of her right foot without any evidence of erythema or cellulitis. IMAGING DATA: Radiographs of the right hip demonstrate a displaced angulated intertrochanteric 3-part fracture with osteopenia. There is a left total hip arthroplasty in good position and alignment appears to be stable. No periprosthetic fractures are noted. IMPRESSION: Right displaced intertrochanteric hip fracture status post fall at home. RECOMMENDATIONS: Medical optimization per medicine service. Possible need for EGD, possible echocardiogram with eventual open reduction internal fixation with trochanteric nailing when stable. Thank you for the opportunity to consult in the care of this patient.
--- NOTE | 2017-11-10 18:30 | History and Physical ---
History & Physical Date & Time of Service: Nov 10, 2017 ~ 14:45 Chief Complaint: Fall, Right Hip Pain Primary Care Physician: Eleno Peters MD History of Present Illness 77 year old female who presents to the ED after being found on the floor by her family this morning. History is somewhat limited from the patient due to her underlying dementia. Patient's daughters are with her at the bedside and report that someone is usually with the patient for most of the day and she sometimes is alone at night. The daughters think the patient may have fallen around 11: 00pm last night. Patient reports she lost her footing and was unable to get up. She denies striking her head or loosing consciousness. No preceding chest pain or shortness of breath. When her daughters found her this morning she was very confused and did not think she was in her own house. She also had vomiting and emesis is described as a dark brown color. They also found some tissues in the bathroom with blood on them. Patient has a wound on her right foot that she is currently following with the wound center for. She is on doxycycline and daughters think the wound is improving. Patient reports pain on the ball of her right foot. No fevers or chills. She denies abdominal pain and vomiting. In the ED, patient is found to have an acute mildly angulated and impacted fracture of the right intertrochanteric femur. WBC is 19K. Other labs are mostly unremarkable and vitals are stable. Past Medical/Surgical History Medical Problems: (1) CAD (coronary artery disease) Permanent Comment: 04/2011 - PCI/BMS to RCA Status: Chronic (2) Depression Status: Chronic (3) DM type 2 (diabetes mellitus, type 2) Status: Chronic (4) HLD (hyperlipidemia) Status: Chronic (5) HTN (hypertension) Status: Chronic Surgical Problems: (1) Amputated toe of left foot Status: Chronic (2) Amputated toe of right foot Status: Chronic (3) S/P tonsillectomy Status: Chronic Family History non contributory due to patient's advanced age Social History Smoking Status: Current Every Day Smoker Alcohol Use: none Immunizations History of Influenza Vaccine: Yes Influenza Vaccine Date: Jul 15, 2017 History of Tetanus Vaccine?: Yes Tetanus Immunization Date: Jul 26, 2013 History of Pneumococcal: Yes Pneumococcal Date: Feb 11, 2015 Allergies Coded Allergies: Cephalosporins (Verified Allergy, Unknown, tolerated Keflex at home, ok for rocephin per dr ho, 01/05/17) [id number] ADMISSION Latex (Verified Allergy, Unknown, "POSSIBLE"- PATIENT DOESN'T REMEMBER BEING ALLERGIC TO LATEX, 01/05/17) PT SAYS SHE "MAY BE" SENSITIVE TO LATEX. Moxifloxacin (Verified Allergy, Unknown, TENDON PAIN, 01/05/17) NSAIDs (Verified Allergy, Unknown, ABDOMINAL PAIN, 01/05/17) Penicillins (Verified Allergy, Unknown, A CHILD, HAD A REACTION, 01/05/17 ) FATHER HAD ANAPHYLACTIC SHOCK TO PCN Quinolones (Verified Allergy, Unknown, UNKNOWN, 01/05/17) Salicylates (Unverified Allergy, Unknown, UNKNOWN, 01/05/17) Sulfa Antibiotics (Verified Allergy, Unknown, PATIENT CAN TAKE LASIX AND GLUCOTROL W/O RXN, 01/05/17) REACTION = TOPICAL "ATE MY SKIN" Sulfamethoxazole (Verified Allergy, Unknown, REACTION WHEN YOUNGER, 01/05/17 ) Ciprofloxacin (Verified Adverse Reaction, Unknown, "DESTROYING MY TENDONS " - ACHILLES TENDON RUPTURES X 4, 01/05/17) Simvastatin (Unverified Adverse Reaction, Unknown, STOMACH CRAMPS, 01/05/17) Home Medications Scheduled Aspirin (Aspirin Chewable), 81 MG PO QPM Atorvastatin (Lipitor), 80 MG PO QPM Cholecalciferol (Vitamin D3), 1,000 INTER.UNIT PO QPM Doxycycline Monohydrate (Monodox), 100 MG PO BID Exenatide (Bydureon), SC WK Insulin Glargine (Lantus Solostar), 22 UNITS SC QPM Lisinopril (Lisinopril), 2.5 MG PO QPM Probiotic Product (Trubiotics), 1 CAP PO QPM Sertraline (Zoloft), 125 MG PO DAILY Scheduled PRN Hydroxyzine Hcl (Atarax), 25 MG PO for Anxiety Metronidazole (Topical) (Metrocream), 1 APPLN TOP DAILY PRN for Itching Review of Systems ROS per HPI, all other systems reviewed and negative History considered limited due to patient's underlying dementia Physical Exam Vital Signs Date Time Temp Pulse Resp B/P (MAP) Pulse Ox O2 Delivery O2 Flow Rate FiO2 11/10/17 15:36 94 18 147/77 95 Room Air 11/10/17 15:00 95 16 157/85 96 Room Air 11/10/17 13:36 99 18 170/84 94 Room Air 11/10/17 13:09 94 Room Air 11/10/17 12:24 105 11/10/17 12:20 105 18 186/102 94 Room Air 11/10/17 11:45 106 18 173/109 98 Room Air 11/10/17 10:55 37.5 107 18 202/111 98 Room Air General Appearance: WD/WN, no apparent distress Head: normocephalic, atraumatic Eyes: normal inspection, EOMI, sclerae normal ENT: hearing grossly normal, + pertinent finding (mucous membranes dry) Neck: supple, no JVD, trachea midline Respiratory/Chest: lungs clear, normal breath sounds, no respiratory distress Cardiovascular: regular rate, rhythm, normal peripheral pulses, + pertinent finding (+2 edema BLLE) Abdomen/GI: normal bowel sounds, non tender, soft, no organomegaly Extremities/Musculoskelatal: no calf tenderness, normal capillary refill, + pertinent finding (pain in right hip/groin with minimal movement; several toe amputations) Neurologic/Psych: no motor/sensory deficits, alert, + disoriented (to time, somewhat forgetful with poor insight) Skin: + pertinent finding (ulcer noted to plantar surface of right foot without drainage or surrounding erythema ) Diagnostics Laboratory Results Results Past 24 Hours Test 11/10/17 11:10 11/10/17 15:50 11/10/17 16:08 Range/Units White Blood Count 19.59 4.8-10.8 K/uL Red Blood Count 4.44 4.2-5.4 M/uL Hemoglobin 13.4 12.0-16.0 g/dL Hematocrit 39.3 37-47 % Mean Corpuscular Volume 88.5 80-100 fL Mean Corpuscular Hemoglobin 30.2 25-34 pg Mean Corpuscular Hemoglobin Concent 34.1 32-36 g/dl Platelet Count 211 130-400 K/uL Mean Platelet Volume 10.5 7.4-10.4 fL Neutrophils (%) (Auto) 86.0 % Lymphocytes (%) (Auto) 6.9 % Monocytes (%) (Auto) 6.0 % Eosinophils (%) (Auto) 0.1 % Basophils (%) (Auto) 0.3 % Neutrophils # (Auto) 16.86 1.4-6.5 K/uL Lymphocytes # (Auto) 1.36 1.2-3.4 K/uL Monocytes # (Auto) 1.18 0.11-0.59 K/uL Eosinophils # (Auto) 0.01 0-0.5 K/uL Basophils # (Auto) 0.05 0-0.2 K/uL RDW Standard Deviation 46.9 36.4-46.3 fL RDW Coefficient of Variation 14.4 11.5-14.5 % Immature Granulocyte % (Auto) 0.7 % Immature Granulocyte # (Auto) 0.13 0.00-0.02 K/uL Prothrombin Time 10.4 9.0-12.0 SECONDS Prothromb Time International Ratio 1.0 0.9-1.1 Activated Partial Thromboplast Time 25.0 21.0-31.0 SECONDS Partial Thromboplastin Ratio 1.0 Urine Color YELLOW Urine Appearance CLEAR CLEAR Urine pH 5.5 4.5-7.5 Urine Specific [place] 1.013 1.000-1.030 Urine Protein 1+ NEG Urine Glucose (UA) 1+ NEG Urine Ketones NEG NEG Urine Occult Blood TRACE NEG Urine Nitrite NEG NEG Urine Bilirubin NEG NEG Urine Urobilinogen NEG NEG Urine Leukocyte Esterase NEG NEG Urine WBC (Auto) 0 0-5 /hpf Urine RBC (Auto) 0-4 0-4 /hpf Urine Hyaline Casts (Auto) 1-5 0-5 /lpf Urine Epithelial Cells (Auto) 5-10 0-5 /lpf Urine Bacteria (Auto) NEG NEG Sodium Level 138 136-145 mmol/L Potassium Level 3.9 3.5-5.1 mmol/L Chloride Level 102 98-107 mmol/L Carbon Dioxide Level 29 21-32 mmol/L Anion Gap 6.0 3-11 mmol/L Blood Urea Nitrogen 28 7-18 mg/dl Creatinine 1.29 0.60-1.20 mg/dl Est Creatinine Clear Calc Drug Dose 40.9 ml/min Estimated GFR () 45.9 Estimated GFR (Non- 39.6 BUN/Creatinine Ratio 21.6 10-20 Random Glucose 215 70-99 mg/dl Calcium Level 9.7 8.5-10.1 mg/dl Magnesium Level 1.7 1.8-2.4 mg/dl Total Creatine Kinase 154 26-192 U/L Creatine Kinase MB 3.7 0.5-3.6 ng/ml Creatine Kinase MB Ratio 2.4 0-3.0 Troponin I 0.019 0-0.045 ng/ml Lipase 121 73-393 U/L Microbiology Results 11/10/17 Blood Culture, Ordered Pending 11/10/17 Blood Culture, Ordered Pending Diagnostic Radiology HIP/PELVIS XR IMPRESSION: 1. Acute mildly angulated and impacted fracture of the right intertrochanteric femur. 2. Osteopenic appearance of the bones. HEAD CT IMPRESSION: No acute intracranial abnormality. CXR IMPRESSION: Mild emphysematous change. No acute process. RIGHT KNEE XR IMPRESSION: 1. Limited study secondary to patient positioning. No definite acute fracture or dislocation identified. 2. Severe tricompartmental osteoarthritis. 3. Mild soft tissue swelling. RIGHT FOOT XR IMPRESSION: 1. Soft tissue edema with no acute bony abnormality seen in the right foot. 2. Osteopenia, arthritic change, postoperative change, and heel spurs as above. Impression Assessment and Plan FALL RIGHT INTERTROCHANTERIC HIP FRACTURE - admit to tele - patient presenting after what seems to be a mechanical fall; in the ED, found to have a right hip fracture - history is limited from patient due to underlying dementia - initial troponin negative, EKG without acute ST changes - continue to cycle cardiac enzymes; if become elevated, will need further cardiac evaluation - needs further work up of issues described below - CXR clear - orthopedics (Loyd Pappas PA-C) notified RIGHT DIABETIC FOOT ULCER - following with the wound center - recent culture grew chaidez sensitive staph aureus and currently on doxycycline - WBC 19K (stress from fall/fracture could be contributing), afebrile, negative procalcitonin and ESR, CRP 2.4 - will continue doxycycline for now - blood and wound cultures - foot XR negative for osteo; may need to consider MRI - ID and wound care consults COFFEE GROUND EMESIS - hgb stable - check stool hemoccult, hold ASA - monitor hgb - may need GI evaluation DM - hgb a1c 6.7 07/2017 - utilize basal/bolus while hospitalized HX CAD - appears stable, no reports of chest pain - will hold ASA due to possible UGIB HTN - BP stable, continue lisinopril CKD STAGE III - baseline creat runs in the mid 1's - creat noted to be 1.2 today - continue to monitor, avoid nephrotoxic agents when able DVT PROPHYLAXIS - SCDs in light of possible surgery CODE STATUS - Patient's daughter/POA is at the bedside who reports patient does have a living will and POLST form however she is unsure of what it states. Will make patient a full code for now until documents reviewed. DISPO - In my clinical judgment this beneficiary meets acute admission criteria, established by [facility], that includes being hospitalized through two midnights. Advanced Directives Existing Living Will: Yes Existing Power of Administrative Services Manager: Yes Resuscitation Status VTE Prophylaxis Will order VTE Prophylaxis: Yes Note ATTENDING ADDENDUM Record reviewed. Patient interviewed and examined. Care coordinated with NADINE Porter. Please refer to her documentation for patient's history. Briefly, 77-year-old female with history of ischemic heart disease, hypertension , diabetes, dementia, and other problems. Fell at home and suffered right hip fracture. Patient is confused and unable to describe the circumstances of her fall. She does not recall any lightheadedness, palpitations, chest pain, headache, focal neurologic symptoms. EXAM: General-elderly female; no distress Lungs- clear to auscultation; no respiratory distress Cardiovascular- RRR; I/ systolic murmur; no gallop; no JVD; no pretibial edema Abdomen- + bowel sounds, soft, nontender Extremities- no cyanosis; no calf tenderness; status post amputation of several toes; ulcer plantar surface right foot without drainage; right hip pain with movement Neuro- alert, somewhat confused Skin- warm & dry DATA: Hemoglobin 13.4, white count 19,590. BUN 28, creatinine 1.29, random glucose 215. Troponin 0 0.019. Other lab studies as noted. CT head showed mild to moderate atrophy, small vessel ischemic changes, no acute findings. Chest x-ray showed emphysematous changes, no acute findings. X-ray of right hip demonstrated mildly angulated and impacted intertrochanteric fracture. X-ray of right knee show degenerative changes, no fracture or dislocation. X-ray of right foot showed soft tissue edema, no apparent osteomyelitis. EKG performed at 1108 reviewed and demonstrated sinus tachycardia at 109/minute , baseline artifact, slight ST depression in lateral leads. ASSESSMENT AND PLAN: 69-year-old female with right hip fracture after fall at home. Circumstances of the fall are unknown; fall was unwitnessed and patient has dementia. She is hemodynamically stable. Cardiac rhythm is sinus rhythm/sinus tachycardia. Echocardiogram in 2016 demonstrated normal systolic function; no need to repeat at this time. No acute findings on CT of head. Followed by wound clinic for right foot ulcer growing staph aureus (MSSA). Does not appear to be septic. No evidence of osteomyelitis for plain films. Continue doxycycline. ID consulted. Management of hip fracture per Geriatric Hip Fracture Protocol. SCDs for DVT prophylaxis preoperatively. History of dementia. Monitor for delirium. Avoid meds with WATER FILTRATION TECHNICIAN side effects whenever possible. Anticipated need for skilled care postoperatively. Please refer to ANDRES Vines's documentation for discussion of other issues. Chuy Arroyo MD .
[2017-11-10 20:34] VITALS: BP 147/79; PULSE 87; TEMP 37.2; O2SAT 96
[2017-11-10] MEDS ORDERED: INSULIN GLARGINE SOLOSTAR 100 UNITS/ML 3 ML PEN SC SCH (21:00)
[2017-11-10] MEDS: LACTOBACILLUS ACIDOPHILUS (FLORANEX) TAB PO SCH (21:00)
[2017-11-10] MEDS: DOXYCYCLINE HYCLATE 100 MG CAP PO SCH (21:00)
[2017-11-10] MEDS: ATORVASTATIN 20 MG TAB PO SCH (21:01)
[2017-11-10] MEDS: DOCUSATE SODIUM/SENNA 50/8.6MG TAB PO SCH (21:01)
[2017-11-10] MEDS: LISINOPRIL 2.5 MG TAB PO SCH (21:02)
[2017-11-10] MEDS: CHOLECALCIFEROL 1000 INTER.UNIT TAB PO SCH (21:02)
[2017-11-10] MEDS: ACETAMINOPHEN 325 MG TAB PO PRN (21:10)
[2017-11-10 23:10] LABS: HEMATOCRIT 35.6 % (37-47); HEMOGLOBIN 11.7 g/dL (12.0-16.0)
[2017-11-10] MEDS: MoRPHine SULFATE 4 MG/ML 1 ML CARP\\VIAL IV PRN (23:40)
[2017-11-11] VITALS (16 sets, daily range): BP systolic 106–160; BP diastolic 58–86; PULSE 78–98; TEMP 37–37.5; O2SAT 91–98; Ht 175.3 cm; Wt 82.3 kg
[2017-11-11] MEDS: SODIUM CHLORIDE 0.9% 1000ML 1,000 ML IV SCH (04:29)
[2017-11-11] MEDS ORDERED: CLINDAMYCIN IV 900 MG in DEXTROSE 5% 100ML 100 ML IV SCH (06:00)
[2017-11-11] MEDS: MoRPHine SULFATE 4 MG/ML 1 ML CARP\\VIAL IV PRN ×3 (06:16→22:21)
[2017-11-11 06:52] LABS: HEMATOCRIT 34.8 % (37-47); HEMOGLOBIN 11.4 g/dL (12.0-16.0); MEAN CELL VOLUME 90.4 fL (80-100); MEAN CORPUSCULAR HEMOGLOBIN 29.6 pg (25-34); MEAN CORPUSCULAR HGB CONC 32.8 g/dl (32-36); MEAN PLATELET VOLUME 10.2 fL (7.4-10.4); PLATELET COUNT 166 K/uL (130-400); RED CELL DISTRIBUTION WIDTH SD 49.5 fL (36.4-46.3); WHITE BLOOD COUNT 11.56 K/uL (4.8-10.8)
[2017-11-11 07:34] LABS: CALCIUM 8.6 mg/dl (8.5-10.1); CREATININE 1.31 mg/dl (0.60-1.20); POTASSIUM 3.8 mmol/L (3.5-5.1)
[2017-11-11] MEDS: INSULIN ASPART 100 UNITS/ML 3 ML PEN SC SCH ×4 (08:18→20:58)
[2017-11-11] MEDS: SERTRALINE HCL 100 MG TAB PO SCH (08:21)
[2017-11-11] MEDS: SERTRALINE HCL 50 MG TAB PO SCH (08:22)
[2017-11-11] MEDS: DOXYCYCLINE HYCLATE 100 MG CAP PO SCH ×2 (08:22→20:50)
[2017-11-11] MEDS ORDERED: INSULIN GLARGINE SOLOSTAR 100 UNITS/ML 3 ML PEN SC SCH ×4 (09:00→21:00)
[2017-11-11 09:07] LABS: HEMOGLOBIN A1C 7.2 % (4.5-5.6)
--- NOTE | 2017-11-11 09:49 | Progress Note ---
Progress Note Date of Service Nov 11, 2017. Progress Note Subjective/Objective: Patient seen at [facility]. No acute distress. She is verbal and answering questions but reporting that her memory is a little foggy. Cannot recall the circumstances of her falling down. History of dementia as per patient 's daughter Sabrina Ellison [phone]. 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 Patient not having chest pain this AM or breathing problems. Review of EKG this AM does not show signs of ischemia. In regards to the reported history of coffee ground emesis at the time around the mechanical fall at home, the patient has not been observed to have any such episodes overnight. Review of CBC on admission with Hgb 13.4 with subsequent repeat Hgb 12 hours afterwards to be 11.7 and this AM is 11.4. These changes in the Hgb is in the context of being on IV fluids and also likely some trauma from the actual acute mildly angulated and impacted fracture of the right intertrochanteric femur. But visible large hematoma of the skin of right hip on exam Physical Exam Vitals: patient has been hemodynamically stable and heart rate within normal parameter General: verbal, no acute distress Heart: Regular rate Lungs: CTABL Abdomen: soft, nontender, + bowel sounds Extremities: no hematoma seen of the hips, legs in soft boots, able to wiggle toes bilaterally Assessment and Plan: Main issue is that patient is admitted after mechanical fall and found to have acute mildly angulated and impacted fracture of the right intertrochanteric femur. Orthopedics and Anesthesia has made initial evaluations of the the patient for pre-op. Patient has history of CAD (has stent as per patient's daughter) and aspirin held prior to expected procedures As per the admitting hospitalist physician, patient does not require echocardiogram on this admission as "Echocardiogram in 2016 demonstrated normal systolic function; no need to repeat at this time". Repeat EKG this AM reviewed by patient's current hospitalist physician has not appeared to show evidence for cardiac ischemia. The initial admission EKG appears to be poor quality and complicated by the initial tachycardia on admission. Other preop issue is that patient was reported by family members to be having small amount of coffee ground emesis from mouth when found after the mechanical fall but the patient was not seen to be actively retching. At this point in time , no further episodes of emesis witnessed in the hospital and patient has been hemodynamically stable. Declines in Hgb may be from the femur fracture and dilution from being on IV fluids. It does not appear that patient is having active upper GI bleed at this time but will consult gastroenterology to further evaluate whether this assessment is valid. Diabetes / right Diabetes foot ulcer - hgb a1c 6.7 07/2017 - utilize basal/bolus while hospitalized - foot XR negative for osteo - blood culture from admission pending results - continue doxycycline for now - leukocytosis downtrending - Infectious disease and wound care consults requests were placed on admission HTN: BP stable, continue lisinopril unless contraindicated for femur repair surgery CKD stage III - monitor GFR As per admitting hospitalist, patient has history of dementia. Monitor for delirium. Avoid meds with DEVIL DOG side effects whenever possible. As per patient's daughter the dementia is vascular in nature and caused by strokes. CT head: No acute intracranial abnormality DVT ppx - SCDs Sabrina Ellison daughter [phone]
--- NOTE | 2017-11-11 10:01 | Clinical Documentation Query ---
CLINICAL DOCUMENTATION QUERY Dr. YADAV, In your clinical opinion is this patient being managed for: ( x) Osteoporotic fracture, right intertrochanteric femur ( ) Not Agree ( ) Other explanation of clinical findings (Please Explain) ( ) Unable to determine (Please Define) ( ) Need to Discuss The medical record reflects the following clinical findings, treatment, and risk factors. Clinical Indicators: 77 yo female presenting after being found on the floor, having sustained a mildly angulated and impacted fracture of the right intertrochanteric femur. Xray also revealed osteopenic appearance of the bones. Treatment: orthopedics consult, plan for eventual ORIF with trochanteric nailing, vitamin D Risk Factors: age, gender, suspected ground level fall, osteopenia Please clarify and document your clinical opinion in the progress notes and discharge summary. Terms such as "probable", "suspected", "likely", "questionable", "possible", or "still to be ruled out" are acceptable. IF IN AGREEMENT, YOU MUST DOCUMENT ABOVE DIAGNOSTIC STATEMENT IN DAILY PROGRESS NOTES AND DISCHARGE SUMMARY. This document is not part of the patient's record. Thank You, Lorie Anderson, DEMARCUS [phone]
--- NOTE | 2017-11-11 10:44 | Medical Consult ---
Consultation Date of Consultation: Nov 11, 2017. Attending Physician: Gio Poole M.D. Reason for Consultation: Diabetic foot wound History of Present Illness 77-year-old female with history of diabetes mellitus, hyperlipidemia, and hypertension, [facility] for right foot plantar ulcer with previous cultures positive for methicillin sensitive Staph aureus, maintained on doxycycline therapy, who was admitted yesterday after suffering fall. She was found to have right femur fracture, and is now waiting surgical intervention. Foot wound has been slowly improving according to history, and no report of purulent drainage or recent fever. Had been tolerating doxycycline without apparent difficulty. Denies any significant pain in her foot at present[place] [address] on admission, now 11,000. X-ray of the foot, read by me, shows no obvious osteomyelitis. Blood cultures are no growth to date. Past Medical/Surgical History Medical Problems: (1) Altered mental status Status: Acute (2) Contusion of rib on left side Status: Acute (3) Dehydration Status: Acute (4) Dehydration Status: Acute (5) Distal radial fracture Status: Acute (6) Fall Status: Acute (7) Fall Status: Acute (8) General weakness Status: Acute (9) Hypoglycemia Status: Acute (10) Hypothermia Status: Acute (11) Orthostatic hypotension Status: Acute (12) Right wrist fracture Status: Acute (13) Ulna styloid fracture, closed Status: Acute Medical Problems: (1) CAD (coronary artery disease) (2) Depression (3) DM type 2 (diabetes mellitus, type 2) (4) HLD (hyperlipidemia) (5) HTN (hypertension) Surgical Problems: (1) Amputated toe of left foot (2) Amputated toe of right foot (3) S/P tonsillectomy Family History Diabetes mellitus FH: heart disease Social History Smoking Status: Current Every Day Smoker Alcohol Use: none Housing Status: lives alone Allergies Coded Allergies: Cephalosporins (Verified Allergy, Unknown, tolerated Keflex at home, ok for rocephin per dr ho, 01/05/17) [id number] ADMISSION Latex (Verified Allergy, Unknown, "POSSIBLE"- PATIENT DOESN'T REMEMBER BEING ALLERGIC TO LATEX, 01/05/17) PT SAYS SHE "MAY BE" SENSITIVE TO LATEX. Moxifloxacin (Verified Allergy, Unknown, TENDON PAIN, 01/05/17) NSAIDs (Verified Allergy, Unknown, ABDOMINAL PAIN, 01/05/17) Penicillins (Verified Allergy, Unknown, A CHILD, HAD A REACTION, 01/05/17 ) FATHER HAD ANAPHYLACTIC SHOCK TO PCN Quinolones (Verified Allergy, Unknown, UNKNOWN, 01/05/17) Salicylates (Unverified Allergy, Unknown, UNKNOWN, 01/05/17) Sulfa Antibiotics (Verified Allergy, Unknown, PATIENT CAN TAKE LASIX AND GLUCOTROL W/O RXN, 01/05/17) REACTION = TOPICAL "ATE MY SKIN" Sulfamethoxazole (Verified Allergy, Unknown, REACTION WHEN YOUNGER, 01/05/17 ) Ciprofloxacin (Verified Adverse Reaction, Unknown, "DESTROYING MY TENDONS " - ACHILLES TENDON RUPTURES X 4, 01/05/17) Simvastatin (Unverified Adverse Reaction, Unknown, STOMACH CRAMPS, 01/05/17) Current Inpatient Medications Current Inpatient Medications Medications (Trade) Dose Ordered Sig/Brenda Route Start Time Stop Time Status Last Admin Dose Admin Acetaminophen (Tylenol Tab) 650 mg Q4H PRN PO 11/10/17 15:15 12/10/17 15:14 11/10/17 21:10 650 MG Ondansetron HCl (Zofran Inj) 4 mg Q6H PRN IV 11/10/17 15:15 12/10/17 15:14 Clindamycin Phosphate 900 mg/ Dextrose 106 ml @ 106 mls/hr PREOP IV 11/11/17 06:00 11/11/17 18:00 Naloxone HCl (Narcan Inj) 0.1 mg PRN PRN IV 11/10/17 15:15 12/10/17 15:14 Senna/Docusate Sodium (Senokot S Tab) 2 tab HS PO 11/10/17 21:00 12/10/17 20:59 11/10/17 21:01 2 TAB Polyethylene (Miralax Powder Packet) 17 gm DAILY PRN PO 11/10/17 15:15 12/10/17 15:14 Magnesium Hydroxide (Milk Of Magnesia Susp) 30 ml DAILY PRN PO 11/10/17 15:15 12/10/17 15:14 Bisacodyl (Dulcolax Supp) 10 mg DAILY PRN MT 11/10/17 15:15 12/10/17 15:14 Sodium Biphosphate/ Sodium Phosphate (Fleet Enema) 132 ml PRN PRN MT 11/10/17 15:15 Insulin Aspart (novoLOG ASPART) SLIDING SCALE If C... ACHS SC 11/10/17 16:57 12/10/17 16:56 11/10/17 21:04 1 UNITS Glucose (Glucose 40% Gel) 15-30 GRAMS 15 GRAMS... UD PRN PO 11/10/17 15:30 12/10/17 15:29 Glucose (Glucose Chew Tab) 4-8 Tablets 4 Tabl... UD PRN PO 11/10/17 15:30 12/10/17 15:29 Dextrose (Dextrose 50% 50ML Syringe) 25-50ML OF 50% DW IV FOR... UD PRN IV 11/10/17 15:30 12/10/17 15:29 Glucagon (Glucagon Inj) 1 mg UD PRN SQ 11/10/17 15:30 12/10/17 15:29 Miscellaneous Information (Consult Glycemic Management Pharmacy) 1 ea UD N/A 11/10/17 15:30 12/10/17 15:29 Atorvastatin Calcium (Lipitor Tab) 80 mg QPM PO 11/10/17 21:00 12/10/17 20:59 11/10/17 21:01 80 MG Cholecalciferol (Vitamin D Tab) 1,000 inter.unit QPM PO 11/10/17 21:00 12/10/17 20:59 11/10/17 21:02 1,000 INTER.UNIT Lisinopril (Zestril Tab) 2.5 mg QPM PO 11/10/17 21:00 12/10/17 20:59 11/10/17 21:02 2.5 MG Sertraline HCl (Zoloft Tab) 100 mg DAILY PO 11/11/17 09:00 12/11/17 08:59 11/11/17 08:21 100 MG Lactobacillus Acidophilus (Floranex Tab) 4 tab QPM PO 11/10/17 21:00 12/10/17 20:59 11/10/17 21:00 4 TAB Sertraline HCl (Zoloft Tab) 25 mg QAM PO 11/11/17 09:00 12/11/17 08:59 11/11/17 08:22 25 MG Morphine Sulfate (MoRPHine SULFATE INJ) 4 mg Q4H PRN IV 11/10/17 17:00 11/24/17 16:59 11/11/17 06:16 4 MG Doxycycline Hyclate (Vibramycin Cap) 100 mg BID PO 11/10/17 21:00 11/20/17 20:59 11/11/17 08:22 100 MG Insulin Glargine (Lantus Solostar Pen) 7 units HS SC 11/11/17 21:00 11/11/17 21:01 Insulin Glargine (Lantus Solostar Pen) 15 units HS SC 11/12/17 17:00 12/12/17 16:59 Review of Systems Constitutional: No fever, No chills Eyes: No problem reported ENT: No problem reported Respiratory: No problem reported Cardiovascular: No problem reported Abdomen: + nausea, + vomiting Musculoskeletal: + joint pain Genitourinary - Female: No problem reported Neurologic: No problem reported Psychiatric: No problem reported Endocrine: No problem reported Hematologic / Lymphatic: No problem reported Integumentary: + new/changing skin lesions Allergic / Immunologic: No problem reported Physical Exam Date Time Temp Pulse Resp B/P (MAP) Pulse Ox O2 Delivery O2 Flow Rate FiO2 11/11/17 08:00 96 Nasal Cannula 2.0 11/11/17 07:49 37.4 81 10 158/86 (110) 94 Nasal Cannula 2.0 11/11/17 04:00 93 Room Air 11/11/17 03:45 37.0 82 18 132/69 (90) 93 11/11/17 00:04 37.4 85 16 134/68 (90) 93 Room Air 11/11/17 00:00 93 Room Air 11/10/17 20:34 37.2 87 16 147/79 (101) 96 Room Air 11/10/17 20:00 Room Air 11/10/17 16:30 37.4 94 18 174/77 (109) 94 Room Air 11/10/17 15:36 94 18 147/77 95 Room Air 11/10/17 15:00 95 16 157/85 96 Room Air 11/10/17 13:36 99 18 170/84 94 Room Air 11/10/17 13:09 94 Room Air 11/10/17 12:24 105 11/10/17 12:20 105 18 186/102 94 Room Air 11/10/17 11:45 106 18 173/109 98 Room Air 11/10/17 10:55 37.5 107 18 202/111 98 Room Air General Appearance: WD/WN, no apparent distress Head: normocephalic, atraumatic Eyes: normal inspection, EOMI ENT: normal ENT inspection, pharynx normal Neck: supple, no adenopathy, thyroid normal, trachea midline Respiratory/Chest: chest non-tender, lungs clear, normal breath sounds, no respiratory distress Cardiovascular: regular rate, rhythm, no gallop, no murmur Abdomen/GI: normal bowel sounds, non tender, soft, no organomegaly Back: normal inspection, no CVA tenderness Extremities/Musculoskelatal: no calf tenderness, normal capillary refill, non- tender Neurologic/Psych: alert, oriented x 3 Skin: normal color, no rash, + pertinent finding (Right foot lateral plantar ulcer, no purulence or surrounding erythema) Lymphatic: no adenopathy Laboratory Results Date/Time Source Procedure Growth Status 11/10/17 17:03 Blood Blood Culture Pending Received 11/10/17 16:53 Blood Blood Culture Pending Received Last 24 Hours Test 11/10/17 11:10 11/10/17 16:53 11/10/17 16:58 11/10/17 20:21 White Blood Count 19.59 K/uL Red Blood Count 4.44 M/uL Hemoglobin 13.4 g/dL Hematocrit 39.3 % Mean Corpuscular Volume 88.5 fL Mean Corpuscular Hemoglobin 30.2 pg Mean Corpuscular Hemoglobin Concent 34.1 g/dl Platelet Count 211 K/uL Mean Platelet Volume 10.5 fL Neutrophils (%) (Auto) 86.0 % Lymphocytes (%) (Auto) 6.9 % Monocytes (%) (Auto) 6.0 % Eosinophils (%) (Auto) 0.1 % Basophils (%) (Auto) 0.3 % Neutrophils # (Auto) 16.86 K/uL Lymphocytes # (Auto) 1.36 K/uL Monocytes # (Auto) 1.18 K/uL Eosinophils # (Auto) 0.01 K/uL Basophils # (Auto) 0.05 K/uL RDW Standard Deviation 46.9 fL RDW Coefficient of Variation 14.4 % Immature Granulocyte % (Auto) 0.7 % Immature Granulocyte # (Auto) 0.13 K/uL Prothrombin Time 10.4 SECONDS Prothromb Time International Ratio 1.0 Activated Partial Thromboplast Time 25.0 SECONDS Partial Thromboplastin Ratio 1.0 Urine Color YELLOW Urine Appearance CLEAR Urine pH 5.5 Urine Specific [place] 1.013 Urine Protein 1+ Urine Glucose (UA) 1+ Urine Ketones NEG Urine Occult Blood TRACE Urine Nitrite NEG Urine Bilirubin NEG Urine Urobilinogen NEG Urine Leukocyte Esterase NEG Urine WBC (Auto) 0 /hpf Urine RBC (Auto) 0-4 /hpf Urine Hyaline Casts (Auto) 1-5 /lpf Urine Epithelial Cells (Auto) 5-10 /lpf Urine Bacteria (Auto) NEG Sodium Level 138 mmol/L Potassium Level 3.9 mmol/L Chloride Level 102 mmol/L Carbon Dioxide Level 29 mmol/L Anion Gap 6.0 mmol/L Blood Urea Nitrogen 28 mg/dl Creatinine 1.29 mg/dl Est Creatinine Clear Calc Drug Dose 40.9 ml/min Estimated GFR () 45.9 Estimated GFR (Non- 39.6 BUN/Creatinine Ratio 21.6 Random Glucose 215 mg/dl Calcium Level 9.7 mg/dl Magnesium Level 1.7 mg/dl Total Creatine Kinase 154 U/L Creatine Kinase MB 3.7 ng/ml Creatine Kinase MB Ratio 2.4 Troponin I 0.019 ng/ml 0.045 ng/ml Lipase 121 U/L Erythrocyte Sedimentation Rate 7 mm/hr C-Reactive Protein 2.43 mg/dl Procalcitonin 0.32 ng/ml Bedside Glucose 174 mg/dl 166 mg/dl Test 11/10/17 22:54 11/11/17 06:41 11/11/17 06:53 11/11/17 07:34 Hemoglobin 11.7 g/dL 11.4 g/dL Hematocrit 35.6 % 34.8 % Troponin I 0.041 ng/ml White Blood Count 11.56 K/uL Red Blood Count 3.85 M/uL Mean Corpuscular Volume 90.4 fL Mean Corpuscular Hemoglobin 29.6 pg Mean Corpuscular Hemoglobin Concent 32.8 g/dl RDW Standard Deviation 49.5 fL RDW Coefficient of Variation 15.0 % Platelet Count 166 K/uL Mean Platelet Volume 10.2 fL Sodium Level 139 mmol/L Potassium Level 3.8 mmol/L Chloride Level 106 mmol/L Carbon Dioxide Level 30 mmol/L Anion Gap 3.0 mmol/L Blood Urea Nitrogen 25 mg/dl Creatinine 1.31 mg/dl Est Creatinine Clear Calc Drug Dose 40.4 ml/min Estimated GFR () 45.1 Estimated GFR (Non- 38.9 BUN/Creatinine Ratio 18.9 Random Glucose 120 mg/dl Estimated Average Glucose 160 mg/dl Hemoglobin A1c 7.2 % Calcium Level 8.6 mg/dl Magnesium Level 2.1 mg/dl Bedside Glucose 111 mg/dl 124 mg/dl Patient Name: CECI FLORES Unit Number: [id number] Dictated: 11/10/171648 Transcribed: 11/10/171648 EV Printed Date/Time: [~ rep prt dt]/[~ rep prt tm] [~ rep ct labl] - [~ rep ct ivnm] [facility] [place] [address] Dictated: 11/10/171648 Transcribed: 11/10/171648 EV Printed Date/Time: [~ rep prt dt]/[~ rep prt tm] [~ rep ct labl] - [~ rep ct ivnm] RIGHT FOOT 2 VIEWS CLINICAL HISTORY: Plantar foot wound. FINDINGS: AP and lateral portable views of the right foot are compared to study dated 09/20/2015. The skeletal structures are osteopenic. No fracture is seen. There has been amputation of the first toe at the level of the interphalangeal joint. Hammertoe deformities are seen in the second through fifth toes. No bony erosion or periostitis is identified. Advanced arthritic change is seen at the first metatarsophalangeal joint. Chronic posttraumatic deformity is suggested in the fourth proximal phalanx. There are dorsal and plantar calcaneal enthesophytes. Degenerative spurring is seen along the dorsal aspect of the tarsal bones. A surgical anchor is seen in the lateral malleolus. Soft tissue edema is present throughout the foot. There is atherosclerotic calcification of the regional arteries. IMPRESSION: 1. Soft tissue edema with no acute bony abnormality seen in the right foot. 2. Osteopenia, arthritic change, postoperative change, and heel spurs as above. Electronically signed by: He Alfredo M.D. 11/10/2017 4:54 PM Dictated Date/Time: 11/10/2017 4:49 PM The status of this report is Signed. Draft = Not yet reviewed or approved by Radiologist. Signed = Reviewed and approved by Radiologist. <AttendingPhy>Gio Poole M.D.</AttendingPhy> <FamilyPhy>Eleno Peters MD</FamilyPhy> <PrimaryPhy>Eleno Peters MD</PrimaryPhy> < UnitNumber>[id number]</UnitNumber> <VisitNumber>[id number]</VisitNumber> < PatientName>CECI FLORES</PatientName> <DateOfBirth>1940</DateOfBirth > <Location>[facility]</Location> <ServiceDate>11/10/17</ServiceDate> <MNE>ESINDI</MNE > <OrderingPhy>Gio Poole M.D.</OrderingPhy> <OrderingPhyMNE>f rep ord dr jeronimo< /OrderingPhyMNE> <DictatingPhyMNE>f rep dict dr jeronimo</DictatingPhyMNE> <CCListMNE >f rep ct mne</CCListMNE> <AdmittingPhyMNE>f pt admit dr jeronimo</AdmittingPhyMNE> < AttendingPhyMNE>f pt attend dr jeronimo</AttendingPhyMNE> <ConsultingPhyMNE>f pt consult dr jeronimo</ConsultingPhyMNE> <FamilyPhyMNE>f pt fam dr jeronimo</FamilyPhyMNE> <OtherPhyMNE>f pt other dr jeronimo</OtherPhyMNE> < PrimaryPhyMNE>f pt prim care dr jeronimo</PrimaryPhyMNE> <ReferringPhyMNE>f pt referring dr jeronimo</ReferringPhyMNE> Assessment & Plan 77-year-old female with diabetes mellitus, right foot plantar ulceration with culture positive for methicillin sensitive Staph aureus, now admitted with right femur fracture. Patient should be continued on oral doxycycline at current dose and will follow wound healing to determine length of oral antibiotic therapy. Will follow.
--- NOTE | 2017-11-11 10:48 | Wound Consultation: Inpatient ---
Wound Consultation Date of Consultation: Nov 11, 2017. Attending Physician: Gio Poole M.D. Reason for Consultation: Diabetic foot ulcer plantar surface right foot History of Present Illness Ms. Ellison is a 77-year-old female with history of dementia admitted to [facility] on 11/10/2017 for right intertrochanteric fracture. Consultation was requested for a known diabetic foot ulcer on the plantar surface of the right foot which patient is currently being treated in the wound care center for with Aquacel Ag and offloading. Patient was scheduled for routine wound care follow-up today. Family History Diabetes mellitus FH: heart disease Social History Smoking Status: Current Every Day Smoker Alcohol Use: none Housing Status: lives alone Allergies Coded Allergies: Cephalosporins (Verified Allergy, Unknown, tolerated Keflex at home, ok for rocephin per dr ho, 01/05/17) [id number] ADMISSION Latex (Verified Allergy, Unknown, "POSSIBLE"- PATIENT DOESN'T REMEMBER BEING ALLERGIC TO LATEX, 01/05/17) PT SAYS SHE "MAY BE" SENSITIVE TO LATEX. Moxifloxacin (Verified Allergy, Unknown, TENDON PAIN, 01/05/17) NSAIDs (Verified Allergy, Unknown, ABDOMINAL PAIN, 01/05/17) Penicillins (Verified Allergy, Unknown, A CHILD, HAD A REACTION, 01/05/17 ) FATHER HAD ANAPHYLACTIC SHOCK TO PCN Quinolones (Verified Allergy, Unknown, UNKNOWN, 01/05/17) Salicylates (Unverified Allergy, Unknown, UNKNOWN, 01/05/17) Sulfa Antibiotics (Verified Allergy, Unknown, PATIENT CAN TAKE LASIX AND GLUCOTROL W/O RXN, 01/05/17) REACTION = TOPICAL "ATE MY SKIN" Sulfamethoxazole (Verified Allergy, Unknown, REACTION WHEN YOUNGER, 01/05/17 ) Ciprofloxacin (Verified Adverse Reaction, Unknown, "DESTROYING MY TENDONS " - ACHILLES TENDON RUPTURES X 4, 01/05/17) Simvastatin (Unverified Adverse Reaction, Unknown, STOMACH CRAMPS, 01/05/17) Home Medications Scheduled Aspirin (Aspirin Chewable), 81 MG PO QPM Atorvastatin (Lipitor), 80 MG PO QPM Cholecalciferol (Vitamin D3), 1,000 INTER.UNIT PO QPM Doxycycline Monohydrate (Monodox), 100 MG PO BID Exenatide (Bydureon), SC WK Insulin Glargine (Lantus Solostar), 22 UNITS SC QPM Lisinopril (Lisinopril), 2.5 MG PO QPM Probiotic Product (Trubiotics), 1 CAP PO QPM Sertraline (Zoloft), 125 MG PO DAILY Scheduled PRN Hydroxyzine Hcl (Atarax), 25 MG PO for Anxiety Metronidazole (Topical) (Metrocream), 1 APPLN TOP DAILY PRN for Itching Inpatient Medications Current Inpatient Medications Medications (Trade) Dose Ordered Sig/Brenda Route Start Time Stop Time Status Last Admin Dose Admin Acetaminophen (Tylenol Tab) 650 mg Q4H PRN PO 11/10/17 15:15 12/10/17 15:14 11/10/17 21:10 650 MG Ondansetron HCl (Zofran Inj) 4 mg Q6H PRN IV 11/10/17 15:15 12/10/17 15:14 Clindamycin Phosphate 900 mg/ Dextrose 106 ml @ 106 mls/hr PREOP IV 11/11/17 06:00 11/11/17 18:00 Naloxone HCl (Narcan Inj) 0.1 mg PRN PRN IV 11/10/17 15:15 12/10/17 15:14 Senna/Docusate Sodium (Senokot S Tab) 2 tab HS PO 11/10/17 21:00 12/10/17 20:59 11/10/17 21:01 2 TAB Polyethylene (Miralax Powder Packet) 17 gm DAILY PRN PO 11/10/17 15:15 12/10/17 15:14 Magnesium Hydroxide (Milk Of Magnesia Susp) 30 ml DAILY PRN PO 11/10/17 15:15 12/10/17 15:14 Bisacodyl (Dulcolax Supp) 10 mg DAILY PRN NC 11/10/17 15:15 12/10/17 15:14 Sodium Biphosphate/ Sodium Phosphate (Fleet Enema) 132 ml PRN PRN NC 11/10/17 15:15 Insulin Aspart (novoLOG ASPART) SLIDING SCALE If C... ACHS SC 11/10/17 16:57 12/10/17 16:56 11/10/17 21:04 1 UNITS Glucose (Glucose 40% Gel) 15-30 GRAMS 15 GRAMS... UD PRN PO 11/10/17 15:30 12/10/17 15:29 Glucose (Glucose Chew Tab) 4-8 Tablets 4 Tabl... UD PRN PO 11/10/17 15:30 12/10/17 15:29 Dextrose (Dextrose 50% 50ML Syringe) 25-50ML OF 50% DW IV FOR... UD PRN IV 11/10/17 15:30 12/10/17 15:29 Glucagon (Glucagon Inj) 1 mg UD PRN SQ 11/10/17 15:30 12/10/17 15:29 Miscellaneous Information (Consult Glycemic Management Pharmacy) 1 ea UD N/A 11/10/17 15:30 12/10/17 15:29 Atorvastatin Calcium (Lipitor Tab) 80 mg QPM PO 11/10/17 21:00 12/10/17 20:59 11/10/17 21:01 80 MG Cholecalciferol (Vitamin D Tab) 1,000 inter.unit QPM PO 11/10/17 21:00 12/10/17 20:59 11/10/17 21:02 1,000 INTER.UNIT Lisinopril (Zestril Tab) 2.5 mg QPM PO 11/10/17 21:00 12/10/17 20:59 11/10/17 21:02 2.5 MG Sertraline HCl (Zoloft Tab) 100 mg DAILY PO 11/11/17 09:00 12/11/17 08:59 11/11/17 08:21 100 MG Lactobacillus Acidophilus (Floranex Tab) 4 tab QPM PO 11/10/17 21:00 12/10/17 20:59 11/10/17 21:00 4 TAB Sertraline HCl (Zoloft Tab) 25 mg QAM PO 11/11/17 09:00 12/11/17 08:59 11/11/17 08:22 25 MG Morphine Sulfate (MoRPHine SULFATE INJ) 4 mg Q4H PRN IV 11/10/17 17:00 11/24/17 16:59 11/11/17 06:16 4 MG Doxycycline Hyclate (Vibramycin Cap) 100 mg BID PO 11/10/17 21:00 11/20/17 20:59 11/11/17 08:22 100 MG Insulin Glargine (Lantus Solostar Pen) 7 units HS SC 11/11/17 21:00 11/11/17 21:01 Insulin Glargine (Lantus Solostar Pen) 15 units HS IA 11/12/17 17:00 12/12/17 16:59 Review of Systems Unable to obtain due to patient's dementia Physical Exam Date Time Temp Pulse Resp B/P (MAP) Pulse Ox O2 Delivery O2 Flow Rate FiO2 11/11/17 08:00 96 Nasal Cannula 2.0 11/11/17 07:49 37.4 81 10 158/86 (110) 94 Nasal Cannula 2.0 11/11/17 04:00 93 Room Air 11/11/17 03:45 37.0 82 18 132/69 (90) 93 11/11/17 00:04 37.4 85 16 134/68 (90) 93 Room Air 11/11/17 00:00 93 Room Air 11/10/17 20:34 37.2 87 16 147/79 (101) 96 Room Air 11/10/17 20:00 Room Air 11/10/17 16:30 37.4 94 18 174/77 (109) 94 Room Air 11/10/17 15:36 94 18 147/77 95 Room Air 11/10/17 15:00 95 16 157/85 96 Room Air 11/10/17 13:36 99 18 170/84 94 Room Air 11/10/17 13:09 94 Room Air 11/10/17 12:24 105 11/10/17 12:20 105 18 186/102 94 Room Air 11/10/17 11:45 106 18 173/109 98 Room Air 11/10/17 10:55 37.5 107 18 202/111 98 Room Air right foot: Diabetic foot ulcer plantar surface of the right foot has healed General Appearance: no apparent distress Head: normocephalic Respiratory/Chest: no respiratory distress, no accessory muscle use Extremities/Musculoskelatal: no pedal edema Laboratory Results Last 24 Hours Test 11/10/17 11:10 11/10/17 16:53 11/10/17 16:58 11/10/17 20:21 White Blood Count 19.59 K/uL Red Blood Count 4.44 M/uL Hemoglobin 13.4 g/dL Hematocrit 39.3 % Mean Corpuscular Volume 88.5 fL Mean Corpuscular Hemoglobin 30.2 pg Mean Corpuscular Hemoglobin Concent 34.1 g/dl Platelet Count 211 K/uL Mean Platelet Volume 10.5 fL Neutrophils (%) (Auto) 86.0 % Lymphocytes (%) (Auto) 6.9 % Monocytes (%) (Auto) 6.0 % Eosinophils (%) (Auto) 0.1 % Basophils (%) (Auto) 0.3 % Neutrophils # (Auto) 16.86 K/uL Lymphocytes # (Auto) 1.36 K/uL Monocytes # (Auto) 1.18 K/uL Eosinophils # (Auto) 0.01 K/uL Basophils # (Auto) 0.05 K/uL RDW Standard Deviation 46.9 fL RDW Coefficient of Variation 14.4 % Immature Granulocyte % (Auto) 0.7 % Immature Granulocyte # (Auto) 0.13 K/uL Prothrombin Time 10.4 SECONDS Prothromb Time International Ratio 1.0 Activated Partial Thromboplast Time 25.0 SECONDS Partial Thromboplastin Ratio 1.0 Urine Color YELLOW Urine Appearance CLEAR Urine pH 5.5 Urine Specific [place] 1.013 Urine Protein 1+ Urine Glucose (UA) 1+ Urine Ketones NEG Urine Occult Blood TRACE Urine Nitrite NEG Urine Bilirubin NEG Urine Urobilinogen NEG Urine Leukocyte Esterase NEG Urine WBC (Auto) 0 /hpf Urine RBC (Auto) 0-4 /hpf Urine Hyaline Casts (Auto) 1-5 /lpf Urine Epithelial Cells (Auto) 5-10 /lpf Urine Bacteria (Auto) NEG Sodium Level 138 mmol/L Potassium Level 3.9 mmol/L Chloride Level 102 mmol/L Carbon Dioxide Level 29 mmol/L Anion Gap 6.0 mmol/L Blood Urea Nitrogen 28 mg/dl Creatinine 1.29 mg/dl Est Creatinine Clear Calc Drug Dose 40.9 ml/min Estimated GFR () 45.9 Estimated GFR (Non- 39.6 BUN/Creatinine Ratio 21.6 Random Glucose 215 mg/dl Calcium Level 9.7 mg/dl Magnesium Level 1.7 mg/dl Total Creatine Kinase 154 U/L Creatine Kinase MB 3.7 ng/ml Creatine Kinase MB Ratio 2.4 Troponin I 0.019 ng/ml 0.045 ng/ml Lipase 121 U/L Erythrocyte Sedimentation Rate 7 mm/hr C-Reactive Protein 2.43 mg/dl Procalcitonin 0.32 ng/ml Bedside Glucose 174 mg/dl 166 mg/dl Test 3/7/18 22:54 11/11/17 06:41 11/11/17 06:53 11/11/17 07:34 Hemoglobin 11.7 g/dL 11.4 g/dL Hematocrit 35.6 % 34.8 % Troponin I 0.041 ng/ml White Blood Count 11.56 K/uL Red Blood Count 3.85 M/uL Mean Corpuscular Volume 90.4 fL Mean Corpuscular Hemoglobin 29.6 pg Mean Corpuscular Hemoglobin Concent 32.8 g/dl RDW Standard Deviation 49.5 fL RDW Coefficient of Variation 15.0 % Platelet Count 166 K/uL Mean Platelet Volume 10.2 fL Sodium Level 139 mmol/L Potassium Level 3.8 mmol/L Chloride Level 106 mmol/L Carbon Dioxide Level 30 mmol/L Anion Gap 3.0 mmol/L Blood Urea Nitrogen 25 mg/dl Creatinine 1.31 mg/dl Est Creatinine Clear Calc Drug Dose 40.4 ml/min Estimated GFR () 45.1 Estimated GFR (Non- 38.9 BUN/Creatinine Ratio 18.9 Random Glucose 120 mg/dl Estimated Average Glucose 160 mg/dl Hemoglobin A1c 7.2 % Calcium Level 8.6 mg/dl Magnesium Level 2.1 mg/dl Bedside Glucose 111 mg/dl 124 mg/dl Assessment & Plan Assesment: Healed diabetic foot ulcer plantar surface right foot Plan: Protective foam dressing will be placed over the wound. Patient will follow-up in wound clinic on a as needed basis.
--- NOTE | 2017-11-11 12:11 | Gastrointestinal Consultation ---
Gastrointestinal Consultation Date of Consultation: Nov 11, 2017 Attending Physician: Virgilio Consulting Physician: Rachana Reason for Consultation: possible GIB History of Present Illness Patient is a 77 year old female w/ history of dementia and others listed below who presented to the ED from ambulance after son-in-law found the pt had fallen. Pt was seen and evaluated, chart reviewed. GI was asked to evaluate the pt for a possible GIB. Son-in-law is at bedside who is the main historian as he found the pt. He notes he went to check on Vanessa as he normally does in the AM and found the pt on the floor. He noted she had thrown up and had some dark brown gritty emesis on her night gown with a bottle of tea near her. On arrival , her HGB was stable. There has not been any coffee ground emesis, hematemesis, melena or BRBPR since arrival. The pt remains hemodynamically stable w. 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 NSAIDs: ASA daily AC: none Colonoscopy 04/19/14: Moderate diverticulosis in the sigmoid colon and in the descending colon. Internal hemorrhoids. The examination was otherwise normal. EGD/EUS 09/15/11: The examined esophagus was endoscopically normal. A medium amount offood (residue) was found in the gastric body. The examined duodenum wasendoscopically normal. A small diverticulum was found in the area of the papilla. Past Medical/Surgical History Medical Problems: (1) Altered mental status Status: Acute (2) Contusion of rib on left side Status: Acute (3) Dehydration Status: Acute (4) Dehydration Status: Acute (5) Distal radial fracture Status: Acute (6) Fall Status: Acute (7) Fall Status: Acute (8) General weakness Status: Acute (9) Hypoglycemia Status: Acute (10) Hypothermia Status: Acute (11) Orthostatic hypotension Status: Acute (12) Right wrist fracture Status: Acute (13) Ulna styloid fracture, closed Status: Acute Past Medical History: T2DM, diabetic polyneuropathy, diabetic retinopathy, dyslipidemia, HTN, CAD, SCC Past Surgical History: EGD Colonoscopy cardiac catheterization toe amputation x 2 hip replacement Achilles tendon repair Family History Diabetes mellitus FH: heart disease Social History Smoking Status: Current Every Day Smoker Housing Status: lives alone Allergies Coded Allergies: Cephalosporins (Verified Allergy, Unknown, tolerated Keflex at home, ok for rocephin per dr ho, 01/05/17) [id number] ADMISSION Latex (Verified Allergy, Unknown, "POSSIBLE"- PATIENT DOESN'T REMEMBER BEING ALLERGIC TO LATEX, 01/05/17) PT SAYS SHE "MAY BE" SENSITIVE TO LATEX. Moxifloxacin (Verified Allergy, Unknown, TENDON PAIN, 01/05/17) NSAIDs (Verified Allergy, Unknown, ABDOMINAL PAIN, 01/05/17) Penicillins (Verified Allergy, Unknown, A CHILD, HAD A REACTION, 01/05/17 ) FATHER HAD ANAPHYLACTIC SHOCK TO PCN Quinolones (Verified Allergy, Unknown, UNKNOWN, 01/05/17) Salicylates (Unverified Allergy, Unknown, UNKNOWN, 01/05/17) Sulfa Antibiotics (Verified Allergy, Unknown, PATIENT CAN TAKE LASIX AND GLUCOTROL W/O RXN, 01/05/17) REACTION = TOPICAL "ATE MY SKIN" Sulfamethoxazole (Verified Allergy, Unknown, REACTION WHEN YOUNGER, 01/05/17 ) Ciprofloxacin (Verified Adverse Reaction, Unknown, "DESTROYING MY TENDONS " - ACHILLES TENDON RUPTURES X 4, 01/05/17) Simvastatin (Unverified Adverse Reaction, Unknown, STOMACH CRAMPS, 01/05/17) Current Medications Home Meds and Scripts Medications Dose Route/Sig Max Daily Dose Days Date Category Dose Instructions Metrocream (Metronidazole (Topical)) 0.75 % Cre 1 Appln TOP DAILY PRN 11/10/17 Reported Atarax (Hydroxyzine Hcl) 25 Mg Tab 25 Mg PO PRN 11/10/17 Reported Zoloft (Sertraline HCl) 100 Mg Tab 125 Mg PO DAILY 11/10/17 Reported Monodox (Doxycycline Monohydrate) 100 Mg Cap 100 Mg PO BID 11/08/17 Reported Lipitor (Atorvastatin Calcium) 80 Mg Tab 80 Mg PO QPM 01/05/17 Reported Bydureon (Exenatide) 2 Mg Inj SC WK 01/05/17 Reported on sundays Lantus Solostar (Insulin Glargine) 100 Unit/Ml Inj 22 Units SC QPM 01/05/17 Reported Vitamin D3 (Cholecalciferol) 1,000 Inter.unit Tab 1,000 Inter.unit PO QPM 01/05/17 Reported Aspirin Chewable (Aspirin) 81 Mg Chew 81 Mg PO QPM 05/20/16 Reported Lisinopril 2.5 Mg Tab 2.5 Mg PO QPM 09/20/15 Reported Trubiotics (Probiotic Product) 1 Cap Cap 1 Cap PO QPM 01/14/13 Reported Review of Systems Constitutional: No fever, No chills, No weight loss, No fatigue Respiratory: No cough, No shortness of breath Cardiac: No chest pain, No edema, No palpitations Abdomen: No pain, No nausea, No vomiting, No diarrhea, No constipation, No GI bleeding, No dysphagia Musculoskeletal: + joint pain Endo: No fatigue Skin: No rash, No color change Physical Exam Date Time Temp Pulse Resp B/P (MAP) Pulse Ox O2 Delivery O2 Flow Rate FiO2 11/11/17 11:50 37.4 81 13 157/80 (105) 98 Nasal Cannula 2.0 11/11/17 08:00 96 Nasal Cannula 2.0 11/11/17 07:49 37.4 81 10 158/86 (110) 94 Nasal Cannula 2.0 11/11/17 04:00 93 Room Air 11/11/17 03:45 37.0 82 18 132/69 (90) 93 11/11/17 00:04 37.4 85 16 134/68 (90) 93 Room Air 11/11/17 00:00 93 Room Air 11/10/17 20:34 37.2 87 16 147/79 (101) 96 Room Air 11/10/17 20:00 Room Air 11/10/17 16:30 37.4 94 18 174/77 (109) 94 Room Air 11/10/17 15:36 94 18 147/77 95 Room Air 11/10/17 15:00 95 16 157/85 96 Room Air 11/10/17 13:36 99 18 170/84 94 Room Air 11/10/17 13:09 94 Room Air 11/10/17 12:24 105 11/10/17 12:20 105 18 186/102 94 Room Air General Appearance: no apparent distress (resting in bed) Eyes: PERRL ENT: hearing grossly normal Neck: supple, trachea midline Respiratory/Chest: lungs clear, normal breath sounds, no respiratory distress, no accessory muscle use Cardiovascular: regular rate, rhythm, no JVD, no murmur Abdomen: normal bowel sounds, non tender, soft, no organomegaly Neurologic/Psych: alert, normal mood/affect, oriented x 3 Skin: normal color, no jaundice, warm/dry, no rash Laboratory Results Last 24 Hours Test 11/10/17 16:53 11/10/17 16:58 11/10/17 20:21 11/10/17 22:54 Erythrocyte Sedimentation Rate 7 mm/hr Troponin I 0.045 ng/ml 0.041 ng/ml C-Reactive Protein 2.43 mg/dl Procalcitonin 0.32 ng/ml Bedside Glucose 174 mg/dl 166 mg/dl Hemoglobin 11.7 g/dL Hematocrit 35.6 % Test 11/11/17 06:41 11/11/17 06:53 11/11/17 07:34 11/11/17 11:17 White Blood Count 11.56 K/uL Red Blood Count 3.85 M/uL Hemoglobin 11.4 g/dL Hematocrit 34.8 % Mean Corpuscular Volume 90.4 fL Mean Corpuscular Hemoglobin 29.6 pg Mean Corpuscular Hemoglobin Concent 32.8 g/dl RDW Standard Deviation 49.5 fL RDW Coefficient of Variation 15.0 % Platelet Count 166 K/uL Mean Platelet Volume 10.2 fL Sodium Level 139 mmol/L Potassium Level 3.8 mmol/L Chloride Level 106 mmol/L Carbon Dioxide Level 30 mmol/L Anion Gap 3.0 mmol/L Blood Urea Nitrogen 25 mg/dl Creatinine 1.31 mg/dl Est Creatinine Clear Calc Drug Dose 40.4 ml/min Estimated GFR () 45.1 Estimated GFR (Non- 38.9 BUN/Creatinine Ratio 18.9 Random Glucose 120 mg/dl Estimated Average Glucose 160 mg/dl Hemoglobin A1c 7.2 % Calcium Level 8.6 mg/dl Magnesium Level 2.1 mg/dl Bedside Glucose 111 mg/dl 124 mg/dl 108 mg/dl Impression Patient is a 77 year old female w/ history of a fall and right intertrochanteric fracture, with plan for ORIF when medically stable - GI asked to evaluate the pt for coffee ground emesis, prior to arrival noted by her son- in-law. 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 VSS Plan No evidence of acute GIB No role for EGD If three is a need for anticoagulation michelle-operatively,would consider PPI prophylaxis. GI to sign off. Please call with any acute changes, questions or concerns. Attg add: I interviewed and examined pt, reviewed chart and labs. Pt with dementia, found down by family with dark vomitus that states may havebeen blood or iced tea. On clinical presentation, there is no convincing evidence of GIB, with normal BP, normal BUN, stable hgb, and yellow stool on my rectal exam. No need EGD. No contra-indication to anti-coag if needed michelle-operatively. Please call with questions or if develops overt GIB.
--- NOTE | 2017-11-11 14:07 | Pharmacy Progress Note ---
Glycemic Control Intl Consult Date of Service Nov 11, 2017. Scope Glycemic Pharmacist consulted by Jazz Vines on 11/10/17 for glycemic control and to write orders per [facility] inpatient glycemic control protocol Objective Weight (Kilograms): 81.200 Accuchecks BSG (last 24hrs): Test 11/10/17 11:10 11/10/17 16:58 11/10/17 20:21 11/11/17 06:41 Random Glucose 215 mg/dl (70-99) 120 mg/dl (70-99) Bedside Glucose 174 mg/dl (70-90) 166 mg/dl (70-90) Test 11/11/17 06:53 11/11/17 07:34 Bedside Glucose 111 mg/dl (70-90) 124 mg/dl (70-90) Laboratory Data (last 24hrs) Test 11/10/17 11:10 11/11/17 06:41 Anion Gap 6.0 mmol/L 3.0 mmol/L BUN/Creatinine Ratio 21.6 18.9 Blood Urea Nitrogen 28 mg/dl 25 mg/dl Creatinine 1.29 mg/dl 1.31 mg/dl Potassium Level 3.9 mmol/L 3.8 mmol/L Sodium Level 138 mmol/L 139 mmol/L White Blood Count 19.59 K/uL 11.56 K/uL Red Blood Count 4.44 M/uL Hemoglobin 13.4 g/dL Hematocrit 39.3 % Mean Corpuscular Volume 88.5 fL Mean Corpuscular Hemoglobin 30.2 pg Mean Corpuscular Hemoglobin Concent 34.1 g/dl Platelet Count 211 K/uL Mean Platelet Volume 10.5 fL Neutrophils (%) (Auto) 86.0 % Lymphocytes (%) (Auto) 6.9 % Monocytes (%) (Auto) 6.0 % Eosinophils (%) (Auto) 0.1 % Basophils (%) (Auto) 0.3 % Neutrophils # (Auto) 16.86 K/uL Lymphocytes # (Auto) 1.36 K/uL Monocytes # (Auto) 1.18 K/uL Eosinophils # (Auto) 0.01 K/uL Basophils # (Auto) 0.05 K/uL Hemoglobin A1c 7.2 % HbA1c Test 11/11/17 06:41 Hemoglobin A1c 7.2 % (4.5-5.6) H Recent Pertinent Medications Outpatient Anti-diabetic Regimen: * Lantus 20 SQ units qPM plus Bydureon 2 mg SQ every Wednesday * A1c = 7.2 % 11/11/17 The patient is currently receiving: * Basal insulin: Lantus 15 units every 12 hours * Correctional Insulin: Novolog Correction per scale ACHS Goal Range: Low 110 mg/dL - High 150 mg/dL Correction Factor: 30 mg/dL/unit * Prandial insulin: Per carb ratio of 1 unit per 10 grams CHO consumed Risk Factors for Insulin Resistance: * Recent Surgery: POD 0 for hip fracture surgery * Diet: NPO currently for surgery Assessment & Plan ASSESSMENT: * Ms Ellison is a 77 y/o F with a PMH of dementia, CAD, depression, HLD, HTN, and well controlled type 2 diabetes (HbA1C goal for patient according to the Elements of Diabetes Care Scoring Scale is 7.6-8.0%). The patient is admitted after a fall and hip fracture. * The patient's blood sugar yesterday was 215-174-166 mg/dL and received 21 units of insulin (15 units of basal). The patient is currently NPO to go to surgery today. Fasting was 111 mg/dL. Lunch was 108 mg/dL. * For Lantus, split dosing for today since patient is NPO. Gave additional 7 units this morning and then will have 7 units tonight... shifted to once daily dosing for tomorrow. Will give 15 units at dinnertime tomorrow. Patient has not gone to surgery today yet as of 1400. Spoke with nurse who stated patient will eat tonight. * For Novolog, utilized weight-based stress of 2 currently. PLAN FOR INPATIENT GLYCEMIC CONTROL: * Holding outpatient Bydureon * Basal insulin with LANTUS 7 units SQ BID for today then 15 units daily starting tomorrow * Correctional Insulin with NOVOLOG per scale ACHS or Q6hrs while NPO * Goal Range: Low 110 mg/dL - High 140 mg/dL * Correction Factor: 30 mg/dL/unit * Nutritional / Prandial insulin per carb ratio of 1 unit per 10 grams CHO consumed RECOMMENDATIONS FOR DISCHARGE * Ms Cameron's HbA1C is well controlled for her age and co-morbidities. Continue current regimen as long as patient does not have any low blood sugars. Thank you.
[2017-11-11] MEDS: DEXTROSE 50% 50 ML SYR IV PRN ×2 (16:13→19:59)
[2017-11-11] MEDS ORDERED: PROPOFOL IV EMULSION 10 MG/ML 20 ML VIAL IV ONE (16:35)
[2017-11-11] MEDS ORDERED: FENTANYL CITRATE INJ 50 MCG/1 ML 2 ML VIAL ONE (16:36)
[2017-11-11] MEDS ORDERED: MIDAZOLAM HCL 1 MG/ML 2ML VIAL ONE (16:36)
--- NOTE | 2017-11-11 16:51 | Progress Note ---
Progress Note Date of Service Nov 11, 2017. Progress Note Patient about to go down to the operating room. Had discussion with patient and patient's daughter Armando Mora at bedside ( her phone humber [phone]) Patient apparently had POLST form signed in the past with code Status DNR/DNI in an emergency and also for Comfort Care Measures. Based on discussion with patient and patient's daughter, the current decision from the patient is to be full code status during the operating room procedure and also full code status after coming back from the operating room for the rest of this hospital stay. Goal of care also to actively treat the patient including and if she develops complications from surgery Full Code Status also discussed with patient's nurse
[2017-11-11] MEDS ORDERED: BUPIVACAINE 0.5 % 5 MG/1 ML MPF 30ML VIAL ONE (17:22)
[2017-11-11] MEDS ORDERED: BACITRACIN 50000 UNIT VIAL ONE (17:22)
[2017-11-11] MEDS ORDERED: CEFAZOLIN SOD 2000MG/15 ML IV PUSH IV ONE (17:41)
[2017-11-11] MEDS ORDERED: NURSING VERBAL MED ORDER ONE ×2 (17:45→19:53)
--- NOTE | 2017-11-11 17:53 | History & Physical Bridge Note ---
H&P Re-Evaluation Bridge Note: I have examined the patient, reviewed the History & Physical and in the interval since the performance of the History & Physical I have noted the following changes of clinical significance: No changes noted
[2017-11-11] MEDS ORDERED: PHENYLEPHRINE 100MCG/ML 5ML SYR IV PRN (18:30)
[2017-11-11] MEDS ORDERED: ATROPINE SULFATE 0.1 MG/ML 5ML SYR IV PRN (18:30)
[2017-11-11] MEDS ORDERED: ONDANSETRON INJ 2 MG/ML 2 ML VIAL IV PRN ×2 (18:30→20:00)
[2017-11-11] MEDS ORDERED: EpHEDrine SULFATE INJ 50 MG/ML AMP IV PRN (18:30)
[2017-11-11] MEDS ORDERED: HYDROmorphone INJ 2 MG/ML SYR/VIAL IV PRN (18:30)
--- NOTE | 2017-11-11 19:42 | [facility] Post Operative Brief Note ---
Immediate Operative Summary Operative Date Nov 11, 2017. Pre-Operative Diagnosis Right displaced intertrochanteric hip fracture Post-Operative Diagnosis Right displaced intertrochanteric hip fracture Procedure(s) Performed Open Reduction Internal Fixation Right Hip with Synthes medium Troch Nail Surgeon Dr. Morales Net Application Support Specialist Surgeon(s) None Estimated Blood Loss 100cc Findings Consistent with Post-Op Diagnosis Specimens None per surgeon Drains None Anesthesia Type Spinal MAC Complication(s) none Disposition Accompanied Pt To Recover: no Disposition: Recovery Room / PACU
[2017-11-11] MEDS ORDERED: MAGNESIUM HYDROXIDE SUSP 30 ML UDC PO PRN (20:00)
[2017-11-11] MEDS ORDERED: CEFAZOLIN IV 1,000 MG in DEXTROSE 5% 50ML 50 ML IV SCH (20:00)
--- NOTE | 2017-11-11 20:16 | DIAGNOSTIC IMAGING REPORT ---
R HIP UNILATERAL 2 VIEWS HISTORY: 77 years-old Female post-op acute right hip fracture. COMPARISON: Right hip radiographs 11/11/2017 TECHNIQUE: 2 views of the right hip FINDINGS: Status post placement of an intratrochanteric nail with medullary daryn fixating the previously noted intertrochanteric fracture of the right hip. Alignment is satisfactory. Expected postsurgical soft tissue swelling and deep tissue air about the right hip. Peripheral vascular disease. Imaged right hemipelvis appears intact. Skin shayy are noted about the right hip. IMPRESSION: Satisfactory alignment of the right hip status post placement of an intratrochanteric nail with medullary daryn. The above report was generated using voice recognition software. It may contain grammatical, syntax or spelling errors. Electronically signed by: Hi Dutta M.D. 11/11/2017 8:15 PM Dictated Date/Time: 11/11/2017 8:11 PM
--- NOTE | 2017-11-11 20:25 | DIAGNOSTIC IMAGING REPORT ---
R HIP OR FILMS HISTORY: 77 years-old Female RT TROCH NAIL status post placement of a right intertrochanteric nail COMPARISON: Right hip radiographs of same day and also on 11/10/2017 TECHNIQUE: 4 spot fluoroscopic images of the right hip and right femur were obtained utilizing 132.3 seconds fluoroscopy time FINDINGS: Status post placement of an intratrochanteric nail with intramedullary daryn fixating the previously described acute intertrochanteric fracture of the right femur. Alignment is satisfactory. Single cannulated screw of the proximal right femoral shaft fixates the intramedullary daryn. Soft tissue swelling about the right hip is noted. IMPRESSION: Satisfactory alignment of the right hip status post placement of an intratrochanteric nail with medullary daryn. The above report was generated using voice recognition software. It may contain grammatical, syntax or spelling errors. Electronically signed by: Hi Dutta M.D. 11/11/2017 8:24 PM Dictated Date/Time: 11/11/2017 8:22 PM
--- NOTE | 2017-11-11 20:27 | Anesthesiology Progress Note ---
Anesthesia Post Op Note Date & Time Nov 11, 2017 at 20:27 Vital Signs Pain Intensity: 0 Vital Signs Past 12 Hours Date Time Temp Pulse Resp B/P (MAP) Pulse Ox O2 Delivery O2 Flow Rate FiO2 11/11/17 20:15 36.4 77 14 125/64 99 Nasal Cannula 3 11/11/17 20:05 76 14 119/63 98 Nasal Cannula 3 11/11/17 19:55 75 12 116/64 100 Nasal Cannula 3 11/11/17 19:45 36.7 77 12 115/63 100 Nasal Cannula 3 11/11/17 17:01 37.3 82 16 130/73 (92) 92 Room Air 11/11/17 16:00 96 Nasal Cannula 2.0 11/11/17 15:20 37.5 78 19 125/65 (85) 97 Nasal Cannula 2.0 11/11/17 12:00 96 Nasal Cannula 2.0 11/11/17 11:50 37.4 81 13 157/80 (105) 98 Nasal Cannula 2.0 Notes Mental Status: alert / awake / arousable, participated in evaluation Pt Amnestic to Procedure: Yes Nausea / Vomiting: adequately controlled Pain: adequately controlled Airway Patency, RR, SpO2: stable & adequate BP & HR: stable & adequate Hydration State: stable & adequate Anesthetic Complications: no major complications apparent
[2017-11-11] MEDS: ATORVASTATIN 20 MG TAB PO SCH (20:49)
[2017-11-11] MEDS: LACTOBACILLUS ACIDOPHILUS (FLORANEX) TAB PO SCH (20:49)
[2017-11-11] MEDS: CHOLECALCIFEROL 1000 INTER.UNIT TAB PO SCH (20:49)
[2017-11-11] MEDS: LISINOPRIL 2.5 MG TAB PO SCH (20:50)
[2017-11-11] MEDS: DOCUSATE SODIUM/SENNA 50/8.6MG TAB PO SCH (20:50)
[2017-11-11] MEDS: ASPIRIN 81 MG ECTAB PO SCH (20:56)
[2017-11-11] MEDS: DOCUSATE SODIUM 100 MG CAP PO SCH (20:58)
--- NOTE | 2017-11-11 21:00 | OPERATIVE REPORT ---
DATE OF OPERATION: 11/11/2017 PREOPERATIVE DIAGNOSIS: Right displaced intertrochanteric hip fracture. POSTOPERATIVE DIAGNOSIS: Same. PROCEDURE: Open reduction internal fixation right intertrochanteric hip fracture with Synthes medium trochanteric fixation nail. SURGEON: Rocael Morales DO. MERCHANDISE ASSOCIATE: None. ANESTHESIA: Spinal with sedation. SPECIMENS: None. DRAINS: None. COMPLICATIONS: None. BLOOD LOSS: 100 mL. PERTINENT HISTORY: This is a 77-year-old female who sustained a fall at home. She was transferred to [facility]. X-rays were obtained and evaluation was performed noting right displaced intratrochanteric hip fracture. The patient was then admitted to the hospital and optimized for surgery and then scheduled for surgery as indicated. All potential risks, benefits, complications, alternatives, rehab, potential for incomplete relief of symptoms, need for further surgery, DVT, PE, , persistent pain, swelling, scarring, weakness, neurovascular injury, wound complications, hardware failure, nonunion, malunion, bone fracture, and were discussed with the patient. The patient decided to proceed with the procedure as indicated. DESCRIPTION OF THE PROCEDURE: The patient was transferred to the operative suite. The proper site was identified. The consent was reviewed, the patient was then administered sedation and spinal anesthetic. Once appropriate, the patient then transferred to the fracture table where the right lower extremity was placed in fracture table traction and the nonoperative leg was placed in the well leg tee. All bony prominences were properly padded and protected. The padded post was placed in the peroneal and the patient was positioned appropriately. Next the right leg was placed on traction and reduction of the fracture was performed under fluoroscopic control. Next the operative hip was then sterilely prepped and draped in the usual fashion. Next a 10-blade scalpel incision was used to make an incision proximal to the greater trochanter. The incision was deep in the subcutaneous tissue and fascia and the tip of the greater trochanter was then palpated followed by placement of a guide pin under fluoroscopic control driven into the greater trochanter down to the level of the less trochanter. This was confirmed in AP and lateral projections followed by placement of the proximal reamer over the cannulated guide pin. Next the reamer was then removed using the soft tissue protector, which was also removed. Next the ball tip guide daryn was placed into the proximal femur under fluoroscopic control confirmed with AP and lateral fluoroscope projections. Next the trochanteric nail was then passed over the guide daryn into the femur, the guide daryn was removed and then under fluoroscopic control appropriate level of the femoral nail was then placed in AP projections. Next the targeting device was then fixed to the driving handle and 10-blade scalpel incision was made in the lateral aspect of the thigh. Next the tissue protector and cannulated guide system was then passed into the soft tissue until it was securely fixed against a lateral aspect of the femoral cortex. This was also confirmed under C-arm. Next the guide pin for the spiral blade was driven into the lateral aspect of the femur confirming this with AP lateral projections until the guide pin was in the center of the femoral neck and head approximately 5 mm from the subcortical bone of the femur. Next the spiral blade was then measured and then the lateral cortex was then drilled with the cortex reamer followed by use of the triple reamer with the depth stop set at appropriate depth. A 95 mm spiral blade was then inserted over the cannulated guide daryn under fluoroscopic control. This was seated appropriately then traction was reduced from the limb and the fracture was then gently compressed and then locked proximally with the flexible screwdriver. Next the spiral blade was then disengaged from its insertion handle, insertion handle was then removed and the guide pin was removed from the femoral neck and head. Next the lateral targeting arm was used to insert the distal locking screw. First a 10-blade scalpel incision was made in the lateral aspect of the thigh, captured drill sleeves were then tamped gently to the lateral aspect of the femoral cortex then the locking screw hole was then drilled, measured and then an appropriate length screw was placed to lock the distal aspect of the nail. Next targeting sleeves were then removed. The insertion arm was then removed from the nail and final x-rays were obtained in AP and lateral projections. All incisions were then copiously irrigated with sterile normal saline. The proximal gluteus fascia was then closed using interrupted #1 Vicryl, the dermis was closed using buried interrupted 2-0 Vicryl sutures in all three incisions and the skin was then closed using skin shayy. A sterile compressive dressing consisting of Xeroform gauze, sterile 4 x 4's and Tegaderm was applied. The patient was then awakened and taken to recovery in stable condition. I attest to the content of the Intraoperative Record and any orders documented therein. Any exceptions are noted below. MTDD
[2017-11-12] VITALS (14 sets, daily range): BP systolic 94–124; BP diastolic 48–69; PULSE 77–90; TEMP 36.3–38.5; O2SAT 90–100
[2017-11-12] MEDS ORDERED: HYDROmorphone INJ 0.5 MG/0.5 ML SYR IV PRN
[2017-11-12] MEDS: OXYCODONE/ACETAMINOPHEN 5-325 TAB PO PRN ×4 (00:40→20:15)
[2017-11-12] MEDS: CEFAZOLIN IV 2,000 MG in SYRINGE 0 ML IV SCH ×2 (01:59→11:19)
[2017-11-12] MEDS ORDERED: INSULIN ASPART 100 UNITS/ML 3 ML PEN SC ONE (02:00)
[2017-11-12 06:05] LABS: HEMATOCRIT 31.3 % (37-47); HEMOGLOBIN 9.9 g/dL (12.0-16.0); MEAN CELL VOLUME 91.5 fL (80-100); MEAN CORPUSCULAR HEMOGLOBIN 28.9 pg (25-34); MEAN CORPUSCULAR HGB CONC 31.6 g/dl (32-36); MEAN PLATELET VOLUME 10.5 fL (7.4-10.4); PLATELET COUNT 140 K/uL (130-400); RED CELL DISTRIBUTION WIDTH CV 14.7 % (11.5-14.5); RED CELL DISTRIBUTION WIDTH SD 49.7 fL (36.4-46.3); WHITE BLOOD COUNT 11.03 K/uL (4.8-10.8)
[2017-11-12] MEDS: INSULIN ASPART 100 UNITS/ML 3 ML PEN SC SCH ×5 (07:58→21:16)
[2017-11-12] MEDS: DOCUSATE SODIUM 100 MG CAP PO SCH ×2 (07:59→21:13)
[2017-11-12] MEDS: ASPIRIN 81 MG ECTAB PO SCH ×2 (07:59→21:14)
[2017-11-12] MEDS: DOXYCYCLINE HYCLATE 100 MG CAP PO SCH ×2 (07:59→21:13)
[2017-11-12] MEDS: MULTIVITAMIN TAB PO SCH (07:59)
[2017-11-12] MEDS: PANTOprazole SOD 40 MG TAB PO SCH (08:00)
[2017-11-12] MEDS: SERTRALINE HCL 50 MG TAB PO SCH (08:00)
[2017-11-12] MEDS: SERTRALINE HCL 100 MG TAB PO SCH (08:01)
--- NOTE | 2017-11-12 09:54 | Anesthesiology Progress Note ---
Anesthesia Post Op Note Date & Time Nov 12, 2017 at 09:53 Vital Signs Pain Intensity: 9.0 Vital Signs Past 12 Hours Date Time Temp Pulse Resp B/P (MAP) Pulse Ox O2 Delivery O2 Flow Rate FiO2 11/12/17 08:00 98 Nasal Cannula 2.0 11/12/17 07:45 37.1 79 17 113/64 (80) 99 Nasal Cannula 3.0 11/12/17 04:00 97 Nasal Cannula 2.0 11/12/17 03:47 37.2 85 18 108/55 (72) 95 11/12/17 01:59 38.0 90 16 94 Nasal Cannula 2.0 11/12/17 00:10 38.5 11/12/17 00:00 97 Nasal Cannula 2.0 11/11/17 23:00 90 15 160/69 (99) 95 2.0 11/11/17 22:52 98 13 143/75 (97) 93 2.0 Notes Mental Status: alert / awake / arousable, participated in evaluation Pt Amnestic to Procedure: Yes Nausea / Vomiting: adequately controlled Pain: improving with treatment Airway Patency, RR, SpO2: stable & adequate BP & HR: stable & adequate Hydration State: stable & adequate Neuraxial Anesthesia: was administered, sensory block resolved Anesthetic Complications: no major complications apparent
--- NOTE | 2017-11-12 11:16 | Pharmacy Progress Note ---
Pharmacy Glycemic Short Note 2 Date of Service Nov 12, 2017. OUTPATIENT ANTIDIABETIC REGIMEN: * Lantus 20 units HS * Bydureon 2mg SQ every Wednesday Test 11/11/17 11:17 11/11/17 15:58 11/11/17 16:32 11/11/17 19:54 Bedside Glucose 108 mg/dl (70-90) 63 mg/dl (70-90) 93 mg/dl (70-90) 60 mg/dl (70-90) Test 11/11/17 20:10 11/11/17 20:43 11/11/17 21:25 11/12/17 01:56 Bedside Glucose 110 mg/dl (70-90) 77 mg/dl (70-90) 100 mg/dl (70-90) 106 mg/dl (70-90) Test 11/12/17 06:33 11/12/17 08:06 11/12/17 10:49 Bedside Glucose 128 mg/dl (70-90) 122 mg/dl (70-90) 160 mg/dl (70-90) ASSESSMENT: * Pt NPO yesterday for OR for fractured hip, BSG dropped to 63mg/dl with only 7 units all day, will decrease Lantus dose to prevent further hypoglycemia. * Pt is back on Type 2 DM diet today PLAN FOR INPATIENT GLYCEMIC CONTROL: * Hold outpatient Bydureon * Basal insulin * Lantus SQ HS per BSG * BSG < 110mg/dl - 5 units * BSG 110-180mg/dl - 10 units * BSG > 180 - 15 units * Bolus insulin * NovoLog per scale ACHS or Q6hrs while NPO * Goal Range: Low 110 mg/dL - High 140 mg/dL * Correction Factor: 30 mg/dL/unit * Nutritional / Prandial insulin per carb ratio of 1 unit per 10 grams CHO consumed PLAN FOR DISCHARGE: * A1c at goal (7.2%) no changes needed at this time, unless pt is experiencing hypoglycemia at home
--- NOTE | 2017-11-12 14:54 | Orthopedic Progress Note ---
Orthopedic Progress Note Date of Service Nov 12, 2017. Subjective Post OP Day: 1 Reports: feeling well Objective calves soft nontender, N/V intact, dressing C/D/I Date Time Temp Pulse Resp B/P (MAP) Pulse Ox O2 Delivery O2 Flow Rate FiO2 11/12/17 12:00 99 Nasal Cannula 2.0 11/12/17 11:51 36.9 81 13 99/58 (72) 96 Room Air 11/12/17 08:00 98 Nasal Cannula 2.0 11/12/17 07:45 37.1 79 17 113/64 (80) 99 Nasal Cannula 3.0 11/12/17 04:00 97 Nasal Cannula 2.0 11/12/17 03:47 37.2 85 18 108/55 (72) 95 11/12/17 01:59 38.0 90 16 94 Nasal Cannula 2.0 11/12/17 00:10 38.5 11/12/17 00:00 97 Nasal Cannula 2.0 11/11/17 23:00 90 15 160/69 (99) 95 2.0 11/11/17 22:52 98 13 143/75 (97) 93 2.0 11/11/17 21:30 81 18 126/64 (84) 97 2.0 11/11/17 21:01 82 17 106/58 (74) 91 Nasal Cannula 2.0 11/11/17 21:00 97 Nasal Cannula 2.0 11/11/17 20:31 37.0 80 15 118/63 (81) 96 Nasal Cannula 2.0 11/11/17 20:15 36.4 77 14 125/64 99 Nasal Cannula 3 11/11/17 20:05 76 14 119/63 98 Nasal Cannula 3 11/11/17 19:55 75 12 116/64 100 Nasal Cannula 3 11/11/17 19:45 36.7 77 12 115/63 100 Nasal Cannula 3 11/11/17 17:01 37.3 82 16 130/73 (92) 92 Room Air 11/11/17 16:00 96 Nasal Cannula 2.0 11/11/17 15:20 37.5 78 19 125/65 (85) 97 Nasal Cannula 2.0 Laboratory Results 24 Hours: Test 11/12/17 05:55 Hematocrit 31.3 % Hemoglobin 9.9 g/dL Assessment & Plan Assessment: Postop day 1 status post intracranial Plan: She states she really has no pain in the hip. She has been up ambulating to the bathroom without any complaints. No lightheadedness or dizziness. PT OT when okay with medicine
[2017-11-12] MEDS ORDERED: INSULIN GLARGINE SOLOSTAR 100 UNITS/ML 3 ML PEN SC SCH (17:00)
--- NOTE | 2017-11-12 19:23 | Progress Note ---
Internal Med Progress Note Date of Service: Nov 12, 2017. Provider Documentation: SUBJECTIVE: Patient s/p surgery yesterday. No complaints of pain. Wants to know when she will leave the hospital OBJECTIVE: Exam: General- no acute distress Eyes- EOMI Neck- trachea midline Lungs- CTABL, no wheezing Heart- regular rate Abdomen- positive bowel sounds, soft, nontender Extremities- surgical dressing of right hip/thigh, able to move both legs and toes Neuro- awake and alert ASSESSMENT & PLAN: Right displaced intertrochanteric hip fracture secondary to falling down and osteoporosis, s/p Open reduction internal fixation right intertrochanteric hip fracture with Synthes medium trochanteric fixation nail Diabetes / right Diabetes foot ulcer - hgb a1c 6.7 07/2017 - utilize basal/bolus while hospitalized - foot XR negative for osteo - blood culture no growth to date - leukocytosis downtrending - Infectious disease consult 11/11/17: continue on oral doxycycline at current dose and will follow wound healing to determine length of oral antibiotic therapy - wound care consult HTN: BP stable, continue lisinopril CAD history has stent as per patient's daughter Echocardiogram in 2015 demonstrated normal systolic function Anemia likely from postop blood loss no report of emesis or GI bleed monitor CBC, maintain active type and screen CKD stage III - monitor GFR As per admitting hospitalist, patient has history of dementia. Monitor for delirium. Avoid meds with SAFETY LAMP KEEPER side effects whenever possible. As per patient's daughter the dementia is vascular in nature and caused by strokes. CT head: No acute intracranial abnormality DVT ppx - SCDs Disposition: awaiting placement to facility with physical rehabilitation for ambulatory dysfunction Sabrina Ellison daughter [phone] Vital Signs: Date Time Temp Pulse Resp B/P (MAP) Pulse Ox O2 Delivery O2 Flow Rate FiO2 11/12/17 16:54 37.1 83 20 124/69 (87) 94 Nasal Cannula 2.0 11/12/17 16:04 37.0 84 20 100 2.0 11/12/17 15:38 37.0 84 20 105/48 (67) 100 Nasal Cannula 2.0 11/12/17 15:01 84 100 11/12/17 12:00 99 Nasal Cannula 2.0 11/12/17 11:51 36.9 81 13 99/58 (72) 96 Room Air 11/12/17 08:00 98 Nasal Cannula 2.0 11/12/17 07:45 37.1 79 17 113/64 (80) 99 Nasal Cannula 3.0 11/12/17 04:00 97 Nasal Cannula 2.0 11/12/17 03:47 37.2 85 18 108/55 (72) 95 11/12/17 01:59 38.0 90 16 94 Nasal Cannula 2.0 11/12/17 00:10 38.5 11/12/17 00:00 97 Nasal Cannula 2.0 11/11/17 23:00 90 15 160/69 (99) 95 2.0 11/11/17 22:52 98 13 143/75 (97) 93 2.0 11/11/17 21:30 81 18 126/64 (84) 97 2.0 11/11/17 21:01 82 17 106/58 (74) 91 Nasal Cannula 2.0 11/11/17 21:00 97 Nasal Cannula 2.0 11/11/17 20:31 37.0 80 15 118/63 (81) 96 Nasal Cannula 2.0 11/11/17 20:15 36.4 77 14 125/64 99 Nasal Cannula 3 11/11/17 20:05 76 14 119/63 98 Nasal Cannula 3 11/11/17 19:55 75 12 116/64 100 Nasal Cannula 3 11/11/17 19:45 36.7 77 12 115/63 100 Nasal Cannula 3 Lab Results: Results Past 24 Hours Test 11/11/17 19:54 11/11/17 20:10 11/11/17 20:43 11/11/17 21:25 Range/Units Bedside Glucose 60 110 77 100 70-90 mg/dl Test 11/12/17 01:56 11/12/17 05:55 11/12/17 06:33 11/12/17 08:06 Range/Units Bedside Glucose 106 128 122 70-90 mg/dl White Blood Count 11.03 4.8-10.8 K/uL Red Blood Count 3.42 4.2-5.4 M/uL Hemoglobin 9.9 12.0-16.0 g/dL Hematocrit 31.3 37-47 % Mean Corpuscular Volume 91.5 80-100 fL Mean Corpuscular Hemoglobin 28.9 25-34 pg Mean Corpuscular Hemoglobin Concent 31.6 32-36 g/dl RDW Standard Deviation 49.7 36.4-46.3 fL RDW Coefficient of Variation 14.7 11.5-14.5 % Platelet Count 140 130-400 K/uL Mean Platelet Volume 10.5 7.4-10.4 fL Test 11/12/17 10:49 11/12/17 17:16 11/12/17 18:27 Range/Units Bedside Glucose 160 237 249 70-90 mg/dl
[2017-11-12] MEDS: DOCUSATE SODIUM/SENNA 50/8.6MG TAB PO SCH (21:13)
[2017-11-12] MEDS: LACTOBACILLUS ACIDOPHILUS (FLORANEX) TAB PO SCH (21:13)
[2017-11-12] MEDS: CHOLECALCIFEROL 1000 INTER.UNIT TAB PO SCH (21:14)
[2017-11-12] MEDS: ATORVASTATIN 20 MG TAB PO SCH (21:14)
[2017-11-12] MEDS: LISINOPRIL 2.5 MG TAB PO SCH (21:14)
[2017-11-12] MEDS: INSULIN GLARGINE SOLOSTAR 100 UNITS/ML 3 ML PEN SC SCH (21:15)
[2017-11-13] MEDS: OXYCODONE/ACETAMINOPHEN 5-325 TAB PO PRN (05:32)
[2017-11-13 07:52] VITALS: BP 127/67; PULSE 86; TEMP 37.6; O2SAT 93
[2017-11-13] MEDS: SERTRALINE HCL 100 MG TAB PO SCH (09:15)
[2017-11-13] MEDS: SERTRALINE HCL 50 MG TAB PO SCH (09:15)
[2017-11-13] MEDS: DOCUSATE SODIUM 100 MG CAP PO SCH (09:15)
[2017-11-13] MEDS: PANTOprazole SOD 40 MG TAB PO SCH (09:16)
[2017-11-13] MEDS: ASPIRIN 81 MG ECTAB PO SCH ×2 (09:16→21:06)
[2017-11-13] MEDS: MULTIVITAMIN TAB PO SCH (09:16)
[2017-11-13] MEDS: INSULIN ASPART 100 UNITS/ML 3 ML PEN SC SCH ×4 (09:21→21:20)
[2017-11-13] MEDS: DOXYCYCLINE HYCLATE 100 MG CAP PO SCH ×2 (09:22→21:07)
[2017-11-13 09:29] LABS: HEMATOCRIT 27.8 % (37-47); HEMOGLOBIN 9.1 g/dL (12.0-16.0); MEAN CELL VOLUME 91.1 fL (80-100); MEAN CORPUSCULAR HEMOGLOBIN 29.8 pg (25-34); MEAN CORPUSCULAR HGB CONC 32.7 g/dl (32-36); MEAN PLATELET VOLUME 11.3 fL (7.4-10.4); PLATELET COUNT 138 K/uL (130-400); RED CELL DISTRIBUTION WIDTH CV 14.6 % (11.5-14.5); WHITE BLOOD COUNT 11.81 K/uL (4.8-10.8)
[2017-11-13 10:00] LABS: ALBUMIN 2.9 gm/dl (3.4-5.0); CALCIUM 8.5 mg/dl (8.5-10.1); CREATININE 1.81 mg/dl (0.60-1.20); POTASSIUM 3.8 mmol/L (3.5-5.1)
[2017-11-13 10:02] LABS: TOTAL PROTEIN 6.1 gm/dl (6.4-8.2)
--- NOTE | 2017-11-13 13:05 | Orthopedic Progress Note ---
Orthopedic Progress Note Date of Service Nov 13, 2017. Subjective Post OP Day: 2 Reports: feeling well, pain controlled w PO medications, Denies: chest pain, SOB , nausea / vomiting, light headedness, calf pain Objective calves soft nontender, N/V intact, capillary refill less than 2 sec., dressing C /D/I, A&O x3, toes mobile Date Time Temp Pulse Resp B/P (MAP) Pulse Ox O2 Delivery O2 Flow Rate FiO2 11/13/17 07:52 37.6 86 16 127/67 (87) 93 Room Air 11/13/17 07:40 Room Air 11/13/17 00:15 Room Air 11/12/17 23:01 37.1 88 17 117/61 (79) 95 Room Air 11/12/17 17:00 Nasal Cannula 2.0 11/12/17 16:54 37.1 83 20 124/69 (87) 94 Nasal Cannula 2.0 11/12/17 16:04 37.0 84 20 100 2.0 11/12/17 15:38 37.0 84 20 105/48 (67) 100 Nasal Cannula 2.0 11/12/17 15:01 84 100 Laboratory Results 24 Hours: Test 11/13/17 08:50 Hematocrit 27.8 % Hemoglobin 9.1 g/dL Assessment & Plan Assessment: Postop day 2 status post right hip troch nail Plan: She states she really has no pain in the hip. She has been up ambulating to the bathroom without any complaints. No lightheadedness or dizziness. PT OT when okay with medicine plan for juniper on discharge when ready per medicine Inhouse Planning Pain Management: Percocet DVT Prophylaxis: Umair Lee Discharge Planning Discharge Planning: [facility] facility
[2017-11-13 15:41] VITALS: BP 131/59; PULSE 84; TEMP 37.5; O2SAT 93
--- NOTE | 2017-11-13 15:56 | Progress Note ---
Internal Med Progress Note Date of Service: Nov 13, 2017. Provider Documentation: SUBJECTIVE: No complaints of pain or shortness of breath. Hgb downtrending after surgery but surgical site appears okay and patient asymptomatic OBJECTIVE: Exam: General- no acute distress Eyes- EOMI Neck- trachea midline Lungs- CTABL, no wheezing Heart- regular rate Abdomen- positive bowel sounds, soft, nontender Extremities- surgical dressing of right hip/thigh, able to move both legs and toes Neuro- awake and alert ASSESSMENT & PLAN: Right displaced intertrochanteric hip fracture secondary to falling down and osteoporosis, s/p Open reduction internal fixation right intertrochanteric hip fracture with Synthes medium trochanteric fixation nail Diabetes / right Diabetes foot ulcer - hgb a1c 6.7 07/2017 - insulin while hospitalized - foot XR negative for osteo - blood culture no growth to date - leukocytosis downtrending - Infectious disease consult 11/11/17: continue on oral doxycycline at current dose and will follow wound healing to determine length of oral antibiotic therapy - wound care consult: Healed diabetic foot ulcer plantar surface right foot / Plan: Protective foam dressing will be placed over the wound. Patient will follow-up in wound clinic on a as needed basis. -will stop doxycycline on 11/13/17 as wound healing well and patient afebrile HTN: BP stable, continue lisinopril CAD history has stent as per patient's daughter Echocardiogram in 2015 demonstrated normal systolic function Anemia from postop blood loss, Hgb downtrending, no report of emesis or GI bleed, monitor CBC, maintain active type and screen CKD stage III - monitor GFR Mental Status: alert and oriented and responds appropriately to questions about current health CT head: No acute intracranial abnormality As per admitting hospitalist, patient has history of dementia. Monitor for delirium. Avoid meds with CHART PICKER side effects whenever possible. As per patient's daughter the dementia is vascular in nature and caused by strokes. DVT ppx - SCDs Disposition: awaiting placement to facility with physical rehabilitation for ambulatory dysfunction Sabrina Ellison daughter [phone] Vital Signs: Date Time Temp Pulse Resp B/P (MAP) Pulse Ox O2 Delivery O2 Flow Rate FiO2 11/13/17 15:41 37.5 84 16 131/59 (83) 93 Room Air 11/13/17 07:52 37.6 86 16 127/67 (87) 93 Room Air 11/13/17 07:40 Room Air 11/13/17 00:15 Room Air 11/12/17 23:01 37.1 88 17 117/61 (79) 95 Room Air 11/12/17 17:00 Nasal Cannula 2.0 11/12/17 16:54 37.1 83 20 124/69 (87) 94 Nasal Cannula 2.0 11/12/17 16:04 37.0 84 20 100 2.0 Lab Results: Results Past 24 Hours Test 11/12/17 17:16 11/12/17 18:27 11/12/17 20:37 11/13/17 07:50 Range/Units Bedside Glucose 237 249 179 138 70-90 mg/dl Test 11/13/17 08:50 11/13/17 12:12 Range/Units White Blood Count 11.81 4.8-10.8 K/uL Red Blood Count 3.05 4.2-5.4 M/uL Hemoglobin 9.1 12.0-16.0 g/dL Hematocrit 27.8 37-47 % Mean Corpuscular Volume 91.1 80-100 fL Mean Corpuscular Hemoglobin 29.8 25-34 pg Mean Corpuscular Hemoglobin Concent 32.7 32-36 g/dl RDW Standard Deviation 49.0 36.4-46.3 fL RDW Coefficient of Variation 14.6 11.5-14.5 % Platelet Count 138 130-400 K/uL Mean Platelet Volume 11.3 7.4-10.4 fL Sodium Level 137 136-145 mmol/L Potassium Level 3.8 3.5-5.1 mmol/L Chloride Level 103 98-107 mmol/L Carbon Dioxide Level 26 21-32 mmol/L Anion Gap 7.0 3-11 mmol/L Blood Urea Nitrogen 41 7-18 mg/dl Creatinine 1.81 0.60-1.20 mg/dl Est Creatinine Clear Calc Drug Dose 29.4 ml/min Estimated GFR () 30.5 Estimated GFR (Non- 26.3 BUN/Creatinine Ratio 22.5 10-20 Random Glucose 131 70-99 mg/dl Calcium Level 8.5 8.5-10.1 mg/dl Total Bilirubin 0.7 0.2-1 mg/dl Aspartate Amino Transf (AST/SGOT) 48 15-37 U/L Alanine Aminotransferase (ALT/SGPT) 14 12-78 U/L Alkaline Phosphatase 71 45-117 U/L Total Protein 6.1 6.4-8.2 gm/dl Albumin 2.9 3.4-5.0 gm/dl Globulin 3.2 2.5-4.0 gm/dl Albumin/Globulin Ratio 0.9 0.9-2 Bedside Glucose 129 70-90 mg/dl
[2017-11-13] MEDS: ACETAMINOPHEN 325 MG TAB PO PRN (18:27)
[2017-11-13] MEDS: DOCUSATE SODIUM/SENNA 50/8.6MG TAB PO SCH (21:06)
[2017-11-13] MEDS: ATORVASTATIN 20 MG TAB PO SCH (21:07)
[2017-11-13] MEDS: LACTOBACILLUS ACIDOPHILUS (FLORANEX) TAB PO SCH (21:07)
[2017-11-13] MEDS: LISINOPRIL 2.5 MG TAB PO SCH (21:07)
[2017-11-13] MEDS: CHOLECALCIFEROL 1000 INTER.UNIT TAB PO SCH (21:07)
[2017-11-13] MEDS: INSULIN GLARGINE SOLOSTAR 100 UNITS/ML 3 ML PEN SC SCH (21:19)
[2017-11-13 22:58] VITALS: BP 120/64; PULSE 83; TEMP 37.5; O2SAT 94
[2017-11-14 06:43] LABS: HEMATOCRIT 26.8 % (37-47); MEAN CELL VOLUME 89.3 fL (80-100); MEAN CORPUSCULAR HGB CONC 33.6 g/dl (32-36); MEAN PLATELET VOLUME 10.5 fL (7.4-10.4); PLATELET COUNT 149 K/uL (130-400); RED CELL DISTRIBUTION WIDTH CV 14.5 % (11.5-14.5); RED CELL DISTRIBUTION WIDTH SD 47.3 fL (36.4-46.3); WHITE BLOOD COUNT 10.56 K/uL (4.8-10.8)
[2017-11-14 07:42] VITALS: BP 148/62; PULSE 80; TEMP 37; O2SAT 95
[2017-11-14] MEDS: ACETAMINOPHEN 325 MG TAB PO PRN (08:33)
[2017-11-14] MEDS: ASPIRIN 81 MG ECTAB PO SCH ×2 (08:35→20:24)
[2017-11-14] MEDS: SERTRALINE HCL 50 MG TAB PO SCH (08:36)
[2017-11-14] MEDS: SERTRALINE HCL 100 MG TAB PO SCH (08:36)
[2017-11-14] MEDS: DOXYCYCLINE HYCLATE 100 MG CAP PO SCH ×2 (08:37→20:24)
[2017-11-14] MEDS: PANTOprazole SOD 40 MG TAB PO SCH (08:37)
[2017-11-14] MEDS: MULTIVITAMIN TAB PO SCH (08:37)
[2017-11-14] MEDS: INSULIN ASPART 100 UNITS/ML 3 ML PEN SC SCH ×4 (09:27→20:49)
[2017-11-14] MEDS: SODIUM CHLORIDE 0.9% 1000ML 1,000 ML IV SCH ×2 (09:28→20:31)
[2017-11-14] MEDS: OXYCODONE/ACETAMINOPHEN 5-325 TAB PO PRN ×2 (10:17→14:27)
--- NOTE | 2017-11-14 13:53 | Orthopedic Progress Note ---
Orthopedic Progress Note Date of Service Nov 14, 2017. Subjective Reports: feeling well, Denies: complaints, chest pain, SOB, nausea / vomiting, light headedness, calf pain Objective calves soft nontender, N/V intact, hip located, capillary refill less than 2 sec., toes mobile Hip incisions benign. Minimal swelling. Pulses palpable B LE. Date Time Temp Pulse Resp B/P (MAP) Pulse Ox O2 Delivery O2 Flow Rate FiO2 11/14/17 09:44 Room Air 11/14/17 07:42 37.0 80 16 148/62 (90) 95 Room Air 11/14/17 00:50 Room Air 11/13/17 22:58 37.5 83 16 120/64 (82) 94 Room Air 11/13/17 15:45 Room Air 11/13/17 15:41 37.5 84 16 131/59 (83) 93 Room Air Laboratory Results 24 Hours: Test 11/14/17 06:26 Hematocrit 26.8 % Hemoglobin 9.0 g/dL Assessment & Plan Assessment: Postop day 3 status post right hip troch nail Post Op anemia- stable Plan: Cont DVT prophylaxis Cont PT/OT Kaur on discharge when stable per medicine Inhouse Planning Pain Management: Percocet DVT Prophylaxis: TEDs, SCDs Discharge Planning Discharge Planning: long-term facility
--- NOTE | 2017-11-14 14:30 | Pharmacy Progress Note ---
Pharmacy Glycemic Short Note 2 Date of Service Nov 14, 2017. OUTPATIENT ANTIDIABETIC REGIMEN: * Lantus 20 units HS * Bydureon 2mg SQ every Wednesday Test 11/13/17 17:01 11/13/17 20:41 11/14/17 08:01 11/14/17 11:43 Bedside Glucose 150 mg/dl (70-90) 176 mg/dl (70-90) 167 mg/dl (70-90) 133 mg/dl (70-90) Test 11/14/17 14:23 ASSESSMENT: * Blood sugars acceptable since tighten CF and CR yesterday morning, no changes needed at this time * POD 3 PLAN FOR INPATIENT GLYCEMIC CONTROL: * Hold outpatient Bydureon * Basal insulin * Lantus SQ HS per BSG * BSG < 110mg/dl - 5 units * BSG 110-180mg/dl - 10 units * BSG > 180 - 15 units * Bolus insulin * NovoLog per scale ACHS or Q6hrs while NPO * Goal Range: Low 110 mg/dL - High 140 mg/dL * Correction Factor: 25 mg/dL/unit * Nutritional / Prandial insulin per carb ratio of 1 unit per 8 grams CHO consumed PLAN FOR DISCHARGE: * A1c at goal (7.2%) no changes needed at this time, unless pt is experiencing hypoglycemia at home
[2017-11-14 15:07] VITALS: BP 118/60; PULSE 77; TEMP 37; O2SAT 97
[2017-11-14 15:32] LABS: CALCIUM 8.6 mg/dl (8.5-10.1); CREATININE 1.7 mg/dl (0.60-1.20); POTASSIUM 3.8 mmol/L (3.5-5.1)
--- NOTE | 2017-11-14 16:14 | Progress Note ---
Internal Med Progress Note Date of Service: Nov 14, 2017. Provider Documentation: SUBJECTIVE: No complaints of pain or shortness of breath. Hgb downtrending after surgery but surgical site appears okay and patient asymptomatic OBJECTIVE: Exam: General- no acute distress Eyes- EOMI Neck- trachea midline Lungs- CTABL, no wheezing Heart- regular rate Abdomen- positive bowel sounds, soft, nontender Extremities- surgical dressing of right hip/thigh, able to move both legs and toes Neuro- awake and alert ASSESSMENT & PLAN: Right displaced intertrochanteric hip fracture secondary to falling down and osteoporosis, s/p Open reduction internal fixation right intertrochanteric hip fracture with Synthes medium trochanteric fixation nail Diabetes / right Diabetes foot ulcer - hgb a1c 6.7 07/2017 - insulin while hospitalized - foot XR negative for osteo - blood culture no growth to date - leukocytosis downtrending - Infectious disease consult 11/11/17: continue on oral doxycycline at current dose and will follow wound healing to determine length of oral antibiotic therapy - wound care consult: Healed diabetic foot ulcer plantar surface right foot / Plan: Protective foam dressing will be placed over the wound. Patient will follow-up in wound clinic on a as needed basis. -will stop doxycycline on 11/13/17 as wound healing well and patient afebrile HTN: BP stable, continue lisinopril CAD history has stent as per patient's daughter Echocardiogram in 2015 demonstrated normal systolic function Anemia from postop blood loss, no report of emesis or GI bleed Hgb stable between 11/13/17 and 11/14/17 CKD stage III and then ASCENCION after surgery, will give IV fluids and trend creatinine/GFR Mental Status: alert and oriented and responds appropriately to questions about current health CT head: No acute intracranial abnormality As per admitting hospitalist, patient has history of dementia. Monitor for delirium. Avoid meds with ELEMENT[employer] SCHOOL REGISTRAR side effects whenever possible. As per patient's daughter the dementia is vascular in nature and caused by strokes. DVT ppx - SCDs Disposition: awaiting placement to facility with physical rehabilitation for ambulatory dysfunction Sabrina Ellison daughter [phone] Vital Signs: Date Time Temp Pulse Resp B/P (MAP) Pulse Ox O2 Delivery O2 Flow Rate FiO2 11/14/17 15:07 37.0 77 18 118/60 (79) 97 Room Air 11/14/17 09:44 Room Air 11/14/17 07:42 37.0 80 16 148/62 (90) 95 Room Air 11/14/17 00:50 Room Air 11/13/17 22:58 37.5 83 16 120/64 (82) 94 Room Air Lab Results: Results Past 24 Hours Test 11/13/17 17:01 11/13/17 20:41 11/14/17 06:26 11/14/17 08:01 Range/Units Bedside Glucose 150 176 167 70-90 mg/dl White Blood Count 10.56 4.8-10.8 K/uL Red Blood Count 3.00 4.2-5.4 M/uL Hemoglobin 9.0 12.0-16.0 g/dL Hematocrit 26.8 37-47 % Mean Corpuscular Volume 89.3 80-100 fL Mean Corpuscular Hemoglobin 30.0 25-34 pg Mean Corpuscular Hemoglobin Concent 33.6 32-36 g/dl RDW Standard Deviation 47.3 36.4-46.3 fL RDW Coefficient of Variation 14.5 11.5-14.5 % Platelet Count 149 130-400 K/uL Mean Platelet Volume 10.5 7.4-10.4 fL Test 11/14/17 11:14 11/14/17 11:43 11/14/17 14:23 Range/Units Stool Occult Blood NEGATIVE NEGATIVE Bedside Glucose 133 70-90 mg/dl Sodium Level 136 136-145 mmol/L Potassium Level 3.8 3.5-5.1 mmol/L Chloride Level 102 98-107 mmol/L Carbon Dioxide Level 25 21-32 mmol/L Anion Gap 9.0 3-11 mmol/L Blood Urea Nitrogen 44 7-18 mg/dl Creatinine 1.70 0.60-1.20 mg/dl Est Creatinine Clear Calc Drug Dose 31.3 ml/min Estimated GFR () 32.9 Estimated GFR (Non- 28.4 BUN/Creatinine Ratio 25.9 10-20 Random Glucose 160 70-99 mg/dl Calcium Level 8.6 8.5-10.1 mg/dl
[2017-11-14] MEDS: LISINOPRIL 2.5 MG TAB PO SCH (20:24)
[2017-11-14] MEDS: DOCUSATE SODIUM/SENNA 50/8.6MG TAB PO SCH (20:24)
[2017-11-14] MEDS: CHOLECALCIFEROL 1000 INTER.UNIT TAB PO SCH (20:24)
[2017-11-14] MEDS: LACTOBACILLUS ACIDOPHILUS (FLORANEX) TAB PO SCH (20:25)
[2017-11-14] MEDS: ATORVASTATIN 20 MG TAB PO SCH (20:25)
[2017-11-14] MEDS: INSULIN GLARGINE SOLOSTAR 100 UNITS/ML 3 ML PEN SC SCH (20:49)
[2017-11-14 22:55] VITALS: BP 133/67; PULSE 76; TEMP 37.1; O2SAT 96
[2017-11-15 06:24] LABS: HEMATOCRIT 26.8 % (37-47); HEMOGLOBIN 8.9 g/dL (12.0-16.0); MEAN CELL VOLUME 89.6 fL (80-100); MEAN CORPUSCULAR HEMOGLOBIN 29.8 pg (25-34); MEAN CORPUSCULAR HGB CONC 33.2 g/dl (32-36); MEAN PLATELET VOLUME 10.2 fL (7.4-10.4); PLATELET COUNT 154 K/uL (130-400); RED CELL DISTRIBUTION WIDTH CV 14.5 % (11.5-14.5); RED CELL DISTRIBUTION WIDTH SD 47.9 fL (36.4-46.3); WHITE BLOOD COUNT 9.55 K/uL (4.8-10.8)
[2017-11-15 06:43] LABS: ALBUMIN 2.6 gm/dl (3.4-5.0); CALCIUM 8.2 mg/dl (8.5-10.1); CREATININE 1.4 mg/dl (0.60-1.20); POTASSIUM 3.9 mmol/L (3.5-5.1)
[2017-11-15 06:48] LABS: TOTAL PROTEIN 5.7 gm/dl (6.4-8.2)
[2017-11-15 07:08] VITALS: BP 136/72; PULSE 78; TEMP 37; O2SAT 95
--- NOTE | 2017-11-15 07:49 | Consultant Recommendations ---
Medical Social Consultant Recommendations Date of Service Nov 15, 2017. Medical Social Consultant Recommendations U DISCHARGE INSTRUCTIONS: HIP FRACTURE SELF CARE INSTRUCTIONS: A. You are to ambulate with a walker or crutches for approximately 6 weeks. B. You are PARTIAL WEIGHT BEARING on your operative lower extremity for at least 6 weeks. C. Wear low heeled shoes with non-slip soles D. Be sure that your floors are free of things that could trip you throw rugs, electrical cords, and small objects. Avoid wet and waxed floors, especially with crutches/walker/cane. E. Try to walk several times a day with rest periods between. F. You may shower 48 hours after surgery and get the incision area wet, but DO NOT soak or submerge incision area in water. (No baths, swimming pools, hot tubs ) G. Change your dressing daily. Keep the wound covered until seen in the office for your follow up appointment. Call with any questions regarding your wound . H. Do NOT apply soap or any ointment/lotions directly over incision. I. You may use ice as needed to operative site. SPECIAL CARE INSTRUCTIONS: VERY IMPORTANT TO READ AND REVIEW A. You may be at risk for phlebitis or blood clots. a. Wear surgical stockings (TAHIR hose) for 2 weeks after surgery to improve circulation and reduce swelling. b. Take ASPIRIN 81 mg twice daily for 4 weeks or as directed. This is your blood thinner. c. If you are on Coumadin- you will have daily/weekly blood work to monitor your levels. This will be done by either your family physician/ piano player (if you are on Coumadin chronically) versus your orthopedic surgeon. Expect a phone call the day of or the day after your blood work is drawn to adjust your dose accordingly. B. There are a few signs you need to watch for after you are home. Call [facility] [place] at [phone] if you experience any of the following: a. If you have a temperature of 101 degrees or higher. b. Sudden increase in pain in your hip not relieved by rest or pain medication. c. Any fluid or drainage from the incision; redness of the incision. d. Shortness of breath or chest pain. C. Call your physician if: a. Temperature is greater than 101 degrees (F). b. Pain is not relieved by prescribed pain medications. c. Increase drainage or redness from incision. d. Unanswered questions or concerns. D. Pain Medication: a. You will be prescribed pain medication upon discharge that should last till your first post-operative appointment. b. If you experience nausea and/or skin rash, discontinue this medication and contact our office for an alternative medication. c. Caution- narcotic pain medication can cause constipation. FOLLOW UP VISIT: Please call [facility] [place] at [phone] to schedule a follow up appointment 10-14 days from the date of your surgery date.
[2017-11-15] MEDS: INSULIN ASPART 100 UNITS/ML 3 ML PEN SC SCH ×4 (09:09→21:00)
[2017-11-15] MEDS: SERTRALINE HCL 50 MG TAB PO SCH (09:11)
[2017-11-15] MEDS: PANTOprazole SOD 40 MG TAB PO SCH (09:11)
[2017-11-15] MEDS: MULTIVITAMIN TAB PO SCH (09:11)
[2017-11-15] MEDS: ASPIRIN 81 MG ECTAB PO SCH ×2 (09:11→21:46)
[2017-11-15] MEDS: DOXYCYCLINE HYCLATE 100 MG CAP PO SCH ×2 (09:12→21:48)
[2017-11-15] MEDS: SERTRALINE HCL 100 MG TAB PO SCH (09:12)
[2017-11-15] MEDS: SODIUM CHLORIDE 0.9% 1000ML 1,000 ML IV SCH (09:36)
[2017-11-15] MEDS: OXYCODONE/ACETAMINOPHEN 5-325 TAB PO PRN ×3 (09:51→22:17)
--- NOTE | 2017-11-15 11:25 | Pharmacy Progress Note ---
Pharmacy Glycemic Short Note 2 Date of Service Nov 15, 2017. OUTPATIENT ANTIDIABETIC REGIMEN: * Lantus 20 units HS * Bydureon 2mg SQ every Wednesday Item Value Date Time Bedside Glucose 167 mg/dl H 11/14/17 0801 Bedside Glucose 133 mg/dl H 11/14/17 1143 Bedside Glucose 141 mg/dl H 11/14/17 1708 Bedside Glucose 201 mg/dl H 11/14/17 2044 Bedside Glucose 114 mg/dl H 11/15/17 0810 ASSESSMENT: * Pt has been receiving ~ 30 units of insulin per day with adequate control * NovoLog being utilized while Bydureon on hold for admission. Titrating outpatient basal insulin dosing of Lantus based on AM fasting BSG in house. * AM fasting BSG trending downwards from 167 yesterday to 114 today. Will slightly lower dose to prevent hypo with repeated dosing * Post-prandial BSGs seem reasonable with current parameters. May need to tighten CR since Scr improving but only one post-prandial BSG elevated yesterday. PLAN FOR INPATIENT GLYCEMIC CONTROL: * Hold outpatient Bydureon * Basal insulin: decrease dose slightly * Lantus 12 units SQ HS * Bolus insulin: no change at this time. Will tighten CR if BSGs continue to trend upwards. * NovoLog per scale ACHS or Q6hrs while NPO * Goal Range: Low 110 mg/dL - High 140 mg/dL * Correction Factor: 25 mg/dL/unit * Nutritional / Prandial insulin per carb ratio of 1 unit per 8 grams CHO consumed PLAN FOR DISCHARGE: * A1c at goal (7.2%) no changes needed at this time, unless pt is experiencing hypoglycemia at home
[2017-11-15 15:21] VITALS: BP 117/64; PULSE 82; TEMP 37.5; O2SAT 98
--- NOTE | 2017-11-15 17:28 | Progress Note ---
Internal Med Progress Note Date of Service: Nov 15, 2017. Provider Documentation: SUBJECTIVE: No complaints of pain or shortness of breath. Patients receiving IV fluids for ASCENCION and eating and drinking OBJECTIVE: Exam: General- no acute distress Eyes- EOMI Neck- trachea midline Lungs- CTABL, no wheezing Heart- regular rate Abdomen- positive bowel sounds, soft, nontender Extremities- surgical dressing of right hip/thigh, able to move both legs and toes Neuro- awake and alert ASSESSMENT & PLAN: Right displaced intertrochanteric hip fracture secondary to falling down and osteoporosis, s/p Open reduction internal fixation right intertrochanteric hip fracture with Synthes medium trochanteric fixation nail Diabetes / right Diabetes foot ulcer - hgb a1c 6.7 07/2017 - insulin while hospitalized - foot XR negative for osteo - blood culture no growth to date - leukocytosis downtrending - Infectious disease consult 11/11/17: continue on oral doxycycline at current dose and will follow wound healing to determine length of oral antibiotic therapy - wound care consult: Healed diabetic foot ulcer plantar surface right foot / Plan: Protective foam dressing will be placed over the wound. Patient will follow-up in wound clinic on a as needed basis. -stopped doxycycline on 11/13/17 as wound healing well and patient afebrile HTN: BP stable, continue lisinopril CAD history has stent as per patient's daughter Echocardiogram in 2015 demonstrated normal systolic function Anemia from postop blood loss, no report of emesis or GI bleed Hgb stable between 11/13/17 and 11/14/17 and 11/15/17 CKD stage III and then ASCENCION after surgery, patient has received IV fluids and creatinine now downtrending, stopped IV fluids today, patient is eating and drinking water, check renal panel labs tomorrow Mental Status: alert and oriented and responds appropriately to questions about current health CT head: No acute intracranial abnormality As per admitting hospitalist, patient has history of dementia, As per patient's daughter the dementia is vascular in nature and caused by strokes. DVT ppx - SCDs Disposition: awaiting placement to facility with physical rehabilitation for ambulatory dysfunction Sabrina Ellison daughter [phone] Vital Signs: Date Time Temp Pulse Resp B/P (MAP) Pulse Ox O2 Delivery O2 Flow Rate FiO2 11/15/17 15:21 37.5 82 18 117/64 (81) 98 Room Air 11/15/17 08:00 Room Air 11/15/17 07:08 37.0 78 16 136/72 (93) 95 Room Air 11/14/17 23:20 Room Air 11/14/17 22:55 37.1 76 14 133/67 (89) 96 Room Air Lab Results: Results Past 24 Hours Test 11/14/17 20:44 11/15/17 06:00 11/15/17 08:10 Range/Units Bedside Glucose 201 114 70-90 mg/dl White Blood Count 9.55 4.8-10.8 K/uL Red Blood Count 2.99 4.2-5.4 M/uL Hemoglobin 8.9 12.0-16.0 g/dL Hematocrit 26.8 37-47 % Mean Corpuscular Volume 89.6 80-100 fL Mean Corpuscular Hemoglobin 29.8 25-34 pg Mean Corpuscular Hemoglobin Concent 33.2 32-36 g/dl RDW Standard Deviation 47.9 36.4-46.3 fL RDW Coefficient of Variation 14.5 11.5-14.5 % Platelet Count 154 130-400 K/uL Mean Platelet Volume 10.2 7.4-10.4 fL Sodium Level 141 136-145 mmol/L Potassium Level 3.9 3.5-5.1 mmol/L Chloride Level 107 98-107 mmol/L Carbon Dioxide Level 27 21-32 mmol/L Anion Gap 6.0 3-11 mmol/L Blood Urea Nitrogen 40 7-18 mg/dl Creatinine 1.40 0.60-1.20 mg/dl Est Creatinine Clear Calc Drug Dose 38.0 ml/min Estimated GFR () 41.6 Estimated GFR (Non- 35.9 BUN/Creatinine Ratio 28.6 10-20 Random Glucose 95 70-99 mg/dl Calcium Level 8.2 8.5-10.1 mg/dl Total Bilirubin 0.8 0.2-1 mg/dl Aspartate Amino Transf (AST/SGOT) 40 15-37 U/L Alanine Aminotransferase (ALT/SGPT) 13 12-78 U/L Alkaline Phosphatase 69 45-117 U/L Total Protein 5.7 6.4-8.2 gm/dl Albumin 2.6 3.4-5.0 gm/dl Globulin 3.1 2.5-4.0 gm/dl Albumin/Globulin Ratio 0.8 0.9-2
[2017-11-15] MEDS ORDERED: INSULIN GLARGINE SOLOSTAR 100 UNITS/ML 3 ML PEN SC SCH (21:00)
[2017-11-15 21:43] VITALS: BP 123/60; PULSE 82
[2017-11-15] MEDS: LACTOBACILLUS ACIDOPHILUS (FLORANEX) TAB PO SCH (21:47)
[2017-11-15] MEDS: ATORVASTATIN 20 MG TAB PO SCH (21:47)
[2017-11-15] MEDS: DOCUSATE SODIUM/SENNA 50/8.6MG TAB PO SCH (21:48)
[2017-11-15] MEDS: LISINOPRIL 2.5 MG TAB PO SCH (21:48)
[2017-11-15] MEDS: CHOLECALCIFEROL 1000 INTER.UNIT TAB PO SCH (21:48)
[2017-11-15 22:47] VITALS: BP 121/56; PULSE 82; TEMP 37.6; O2SAT 93
[2017-11-16 06:47] LABS: HEMATOCRIT 25.5 % (37-47); HEMOGLOBIN 8.3 g/dL (12.0-16.0); MEAN CELL VOLUME 89.5 fL (80-100); MEAN CORPUSCULAR HEMOGLOBIN 29.1 pg (25-34); MEAN CORPUSCULAR HGB CONC 32.5 g/dl (32-36); MEAN PLATELET VOLUME 10.2 fL (7.4-10.4); PLATELET COUNT 170 K/uL (130-400); RED CELL DISTRIBUTION WIDTH CV 14.5 % (11.5-14.5); WHITE BLOOD COUNT 8.23 K/uL (4.8-10.8)
[2017-11-16 07:11] LABS: CALCIUM 8.4 mg/dl (8.5-10.1); CREATININE 1.22 mg/dl (0.60-1.20); POTASSIUM 3.9 mmol/L (3.5-5.1)
[2017-11-16 07:30] VITALS: BP 151/76; PULSE 78; TEMP 36.8; O2SAT 94
[2017-11-16] MEDS ORDERED: INSULIN GLARGINE SOLOSTAR 100 UNITS/ML 3 ML PEN SC SCH (09:00)
--- NOTE | 2017-11-16 09:07 | Pharmacy Progress Note ---
Pharmacy Glycemic Short Note 2 Date of Service Nov 16, 2017. OUTPATIENT ANTIDIABETIC REGIMEN: * Lantus 20 units HS * Bydureon 2mg SQ every Wednesday Item Value Date Time Bedside Glucose 167 mg/dl H 11/14/17 0801 Bedside Glucose 133 mg/dl H 11/14/17 1143 Bedside Glucose 141 mg/dl H 11/14/17 1708 Bedside Glucose 201 mg/dl H 11/14/17 2044 Item Value Date Time Bedside Glucose 114 mg/dl H 11/15/17 0810 Bedside Glucose 115 mg/dl H 11/15/17 1212 Bedside Glucose 130 mg/dl H 11/15/17 1656 Bedside Glucose 100 mg/dl H 11/15/17 203 Item Value Date Time Bedside Glucose 123 mg/dl H 11/16/17 0821 ASSESSMENT: * Pt has been receiving ~ 30 units of insulin per day with adequate control * NovoLog being utilized while Bydureon on hold for admission. Titrating outpatient basal insulin dosing of Lantus based on AM fasting BSG in house. * AM fasting BSG trending downwards 11/14-11/15 therefore basal insulin was decreased for 11/15 PM. However, dose was held last evening for "low" BSG of 100 mg/dl? Will give dose this morning and work dosing back to HS to be consistent with outpatient dosing. Since AM fasting BSG not elevated, will not "make up" missed dose last evening but instead give dose WILNER. * Post-prandial BSGs seem reasonable with current parameters. PLAN FOR INPATIENT GLYCEMIC CONTROL: * Hold outpatient Bydureon * Basal insulin: decrease dose slightly * Lantus 12 units SQ HS * Will give dose 11/16 AM since 11/15 PM dose non-administered/ Next dose 11/17 with lunch, then 15 with dinner, then 16 at HS. * Bolus insulin: no change at this time. Will tighten CR if BSGs continue to trend upwards. * NovoLog per scale ACHS or Q6hrs while NPO * Goal Range: Low 110 mg/dL - High 140 mg/dL * Correction Factor: 25 mg/dL/unit * Nutritional / Prandial insulin per carb ratio of 1 unit per 8 grams CHO consumed PLAN FOR DISCHARGE: * A1c at goal (7.2%) no changes needed at this time, unless pt is experiencing hypoglycemia at home
[2017-11-16] MEDS: OXYCODONE/ACETAMINOPHEN 5-325 TAB PO PRN ×2 (09:21→09:25)
[2017-11-16] MEDS: MULTIVITAMIN TAB PO SCH (09:26)
[2017-11-16] MEDS: SERTRALINE HCL 100 MG TAB PO SCH (09:26)
[2017-11-16] MEDS: SERTRALINE HCL 50 MG TAB PO SCH (09:27)
[2017-11-16] MEDS: DOXYCYCLINE HYCLATE 100 MG CAP PO SCH (09:27)
[2017-11-16] MEDS: ASPIRIN 81 MG ECTAB PO SCH (09:27)
[2017-11-16] MEDS: INSULIN ASPART 100 UNITS/ML 3 ML PEN SC SCH ×2 (09:30→12:47)
--- NOTE | 2017-11-16 14:38 | Progress Note ---
Medicine Progress Note Date & Time of Visit: Nov 16, 2017 at 14:21. Subjective Pt was seen and examined sitting in bed with no distress with son at bedside Pt said that pain is much better Denies any chest pain, palpitation, dizziness and SOB Objective Last 8 Hrs Date Time Temp Pulse Resp B/P (MAP) Pulse Ox O2 Delivery O2 Flow Rate FiO2 11/16/17 07:45 Room Air 11/16/17 07:30 36.8 78 18 151/76 (101) 94 Room Air Physical Exam: General- No acute distress Head- atraumatic Eyes- PERRL, EOMI ENT- oropharynx clear Neck- supple, no JVD Lungs- clear to auscultation Heart- regular rhythm Abdomen- normal bowel sounds, soft Extremities- no calf tenderness Neuro- alert, oriented x 3; PERRL, EOMI Skin- warm & dry Laboratory Results: Last 24 Hours Test 11/15/17 16:56 11/15/17 20:35 11/16/17 06:19 11/16/17 08:21 Bedside Glucose 130 mg/dl 100 mg/dl 123 mg/dl White Blood Count 8.23 K/uL Red Blood Count 2.85 M/uL Hemoglobin 8.3 g/dL Hematocrit 25.5 % Mean Corpuscular Volume 89.5 fL Mean Corpuscular Hemoglobin 29.1 pg Mean Corpuscular Hemoglobin Concent 32.5 g/dl RDW Standard Deviation 48.0 fL RDW Coefficient of Variation 14.5 % Platelet Count 170 K/uL Mean Platelet Volume 10.2 fL Sodium Level 139 mmol/L Potassium Level 3.9 mmol/L Chloride Level 109 mmol/L Carbon Dioxide Level 23 mmol/L Anion Gap 7.0 mmol/L Blood Urea Nitrogen 36 mg/dl Creatinine 1.22 mg/dl Est Creatinine Clear Calc Drug Dose 43.6 ml/min Estimated GFR () 49.1 Estimated GFR (Non- 42.4 BUN/Creatinine Ratio 29.5 Random Glucose 118 mg/dl Calcium Level 8.4 mg/dl Test 11/16/17 12:09 Bedside Glucose 173 mg/dl Assessment & Plan Right displaced intertrochanteric hip fracture secondary to falling down and osteoporosis, s/p Open reduction internal fixation right intertrochanteric hip fracture with Synthes medium trochanteric fixation nail Continue PT/OT Follow up with ortho Diabetes / right Diabetes foot ulcer - hgb a1c 7.2 on 11/21 - insulin while hospitalized - foot XR negative for osteo - blood culture no growth to date - leukocytosis downtrending - Infectious disease consult 11/11/17: continue on oral doxycycline at current dose and will follow wound healing to determine length of oral antibiotic therapy - wound care consult: Healed diabetic foot ulcer plantar surface right foot / Plan: Protective foam dressing will be placed over the wound. Patient will follow-up in wound clinic on a as needed basis. Received doxycycline HTN: BP stable, continue lisinopril CAD history has stent as per patient's daughter Echocardiogram in 2016 demonstrated normal systolic function Anemia from postop blood loss, no report of emesis or GI bleed Hgb stable between 11/13/17 and 11/14/17 and 11/15/17 CKD stage III and then ASCENCION after surgery, patient has received IV fluids and creatinine now downtrending, stopped IV fluids today, patient is eating and drinking water, check renal panel labs tomorrow Mental Status: alert and oriented and responds appropriately to questions about current health CT head: No acute intracranial abnormality As per admitting hospitalist, patient has history of dementia, As per patient's daughter the dementia is vascular in nature and caused by strokes. DVT ppx - SCDs Disposition: Discharge today to rehab Sabrina Ellison daughter [phone] Current Inpatient Medications: Current Inpatient Medications Medications (Trade) Dose Ordered Sig/Brenda Route Start Time Stop Time Status Last Admin Dose Admin Acetaminophen (Tylenol Tab) 650 mg Q4H PRN PO 11/10/17 15:15 12/10/17 15:14 11/14/17 08:33 650 MG Naloxone HCl (Narcan Inj) 0.1 mg PRN PRN IV 11/10/17 15:15 12/10/17 15:14 Senna/Docusate Sodium (Senokot S Tab) 2 tab HS PO 11/10/17 21:00 12/10/17 20:59 11/15/17 21:48 2 TAB Polyethylene (Miralax Powder Packet) 17 gm DAILY PRN PO 11/10/17 15:15 12/10/17 15:14 Bisacodyl (Dulcolax Supp) 10 mg DAILY PRN [place] 11/10/17 15:15 12/10/17 15:14 Sodium Biphosphate/ Sodium Phosphate (Fleet Enema) 132 ml PRN PRN [place] 11/10/17 15:15 Insulin Aspart (novoLOG ASPART) SLIDING SCALE If C... ACHS SC 11/10/17 16:57 12/10/17 16:56 11/16/17 12:47 6 UNITS Glucose (Glucose 40% Gel) 15-30 GRAMS 15 GRAMS... UD PRN PO 11/10/17 15:30 12/10/17 15:29 Glucose (Glucose Chew Tab) 4-8 Tablets 4 Tabl... UD PRN PO 11/10/17 15:30 12/10/17 15:29 Dextrose (Dextrose 50% 50ML Syringe) 25-50ML OF 50% DW IV FOR... UD PRN IV 11/10/17 15:30 12/10/17 15:29 11/11/17 19:59 25 ML Glucagon (Glucagon Inj) 1 mg UD PRN SQ 11/10/17 15:30 12/10/17 15:29 Miscellaneous Information (Consult Glycemic Management Pharmacy) 1 ea UD N/A 11/10/17 15:30 12/10/17 15:29 Atorvastatin Calcium (Lipitor Tab) 80 mg QPM PO 11/10/17 21:00 12/10/17 20:59 11/15/17 21:47 80 MG Cholecalciferol (Vitamin D Tab) 1,000 inter.unit QPM PO 11/10/17 21:00 12/10/17 20:59 11/15/17 21:48 1,000 INTER.UNIT Lisinopril (Zestril Tab) 2.5 mg QPM PO 11/10/17 21:00 12/10/17 20:59 11/15/17 21:48 2.5 MG Sertraline HCl (Zoloft Tab) 100 mg DAILY PO 11/11/17 09:00 12/11/17 08:59 11/16/17 09:26 100 MG Lactobacillus Acidophilus (Floranex Tab) 4 tab QPM PO 11/10/17 21:00 12/10/17 20:59 11/15/17 21:47 4 TAB Sertraline HCl (Zoloft Tab) 25 mg QAM PO 11/11/17 09:00 12/11/17 08:59 11/16/17 09:27 25 MG Morphine Sulfate (MoRPHine SULFATE INJ) 4 mg Q4H PRN IV 11/10/17 17:00 11/24/17 16:59 11/11/17 22:21 4 MG Doxycycline Hyclate (Vibramycin Cap) 100 mg BID PO 11/10/17 21:00 11/20/17 20:59 11/16/17 09:27 100 MG Magnesium Hydroxide (Milk Of Magnesia Susp) 30 ml Q6H PRN PO 11/11/17 20:00 12/11/17 19:59 Multivitamins (Multivitamin Tab) 1 tab QAM PO 11/12/17 09:00 12/12/17 08:59 11/16/17 09:26 1 TAB Ondansetron HCl (Zofran Inj) 4 mg Q6H PRN IV 11/11/17 20:00 12/11/17 19:59 Aspirin (Ecotrin Tab) 81 mg BID PO 11/11/17 21:00 12/11/17 20:59 11/16/17 09:27 81 MG Oxycodone/ Acetaminophen (Percocet 5-325mg Tab) 1 tab Q4H PRN PO 11/12/17 00:00 11/26/17 00:00 11/16/17 09:25 1 TAB Hydromorphone HCl (Dilaudid Inj) 0.5 mg Q4H PRN IV 11/12/17 00:00 11/26/17 00:00 11/12/17 00:06 0.5 MG Insulin Glargine (Lantus Solostar Pen) 12 units We@1200 SC 11/17/17 12:00 11/17/17 14:00 Insulin Glargine (Lantus Solostar Pen) 12 units HS SC 11/18/17 16:45 12/18/17 16:44
--- NOTE | 2017-11-16 14:45 | Discharge Instructions ---
Discharge Instructions Date of Service Nov 16, 2017. Admission Reason for Admission: Hip Fracture, Right Discharge Discharge Diagnosis / Problem: Right Hip fracture, Diabetes, Diabetes foot ulcer, HTN Discharge Goals Goal(s): Decrease discomfort, Improve function, Improve disease control Activity Recommendations Activity Limitations: resume your previous activity (Partial weight bearing) Instructions / Follow-Up Instructions / Follow-Up Follow up with your primary care provider once discharge to rehab Follow up with Orthopedic in 2 weeks from the day of the surgery Follow up with wound care clinic Daily wound care PARTIAL WEIGHT BEARING on your operative lower extremity for at least 6 weeks. Follow up orthopedic recommendation (Below) Fall precaution Please hold next dose of narcotic if patient becomes drowsy and lethargy Do not drive or operate any machine after taking the narcotic. Current Hospital Diet Patient's current hospital diet: AHA Diet (Heart Healthy), Diabetes Type 2 Diet Discharge Diet Recommended Diet: AHA Diet (Heart Healthy), Diabetes Type 2 Diet Procedures Procedures Performed: Open Reduction Internal Fixation Right Hip with Synthes medium Troch Nail Pending Studies Studies pending at discharge: no Laboratory Results Hemoglobin A1c Test 11/11/17 06:41 Range/Units Estimated Average Glucose 160 mg/dl Hemoglobin A1c 7.2 H 4.5-5.6 % Medical Emergencies . Who to Call and When: Medical Emergencies: If at any time you feel your situation is an emergency, please call 911 immediately. . Non-Emergent Contact Non-Emergency issues call your: Primary Care Provider Call Non-Emergent contact if: your pain is not controlled, your pain is worsening, wound has increased drainage, you have any medication questions . . "Provider Documentation" section prepared by Tasha Mai. . Continuous Mining Machine Lode Miner Recommendations Continuous Mining Machine Lode Miner Recommendations: [facility] DISCHARGE INSTRUCTIONS: HIP FRACTURE SELF CARE INSTRUCTIONS: A. You are to ambulate with a walker or crutches for approximately 6 weeks. B. You are PARTIAL WEIGHT BEARING on your operative lower extremity for at least 6 weeks. C. Wear low heeled shoes with non-slip soles D. Be sure that your floors are free of things that could trip you throw rugs, electrical cords, and small objects. Avoid wet and waxed floors, especially with crutches/walker/cane. E. Try to walk several times a day with rest periods between. F. You may shower 48 hours after surgery and get the incision area wet, but DO NOT soak or submerge incision area in water. (No baths, swimming pools, hot tubs ) G. Change your dressing daily. Keep the wound covered until seen in the office for your follow up appointment. Call with any questions regarding your wound . H. Do NOT apply soap or any ointment/lotions directly over incision. I. You may use ice as needed to operative site. SPECIAL CARE INSTRUCTIONS: VERY IMPORTANT TO READ AND REVIEW A. You may be at risk for phlebitis or blood clots. a. Wear surgical stockings (TAHIR hose) for 2 weeks after surgery to improve circulation and reduce swelling. b. Take ASPIRIN 81 mg twice daily for 4 weeks or as directed. This is your blood thinner. c. If you are on Coumadin- you will have daily/weekly blood work to monitor your levels. This will be done by either your family physician/ loader (if you are on Coumadin chronically) versus your orthopedic surgeon. Expect a phone call the day of or the day after your blood work is drawn to adjust your dose accordingly. B. There are a few signs you need to watch for after you are home. Call [facility] at [phone] if you experience any of the following: a. If you have a temperature of 101 degrees or higher. b. Sudden increase in pain in your hip not relieved by rest or pain medication. c. Any fluid or drainage from the incision; redness of the incision. d. Shortness of breath or chest pain. C. Call your physician if: a. Temperature is greater than 101 degrees (F). b. Pain is not relieved by prescribed pain medications. c. Increase drainage or redness from incision. d. Unanswered questions or concerns. D. Pain Medication: a. You will be prescribed pain medication upon discharge that should last till your first post-operative appointment. b. If you experience nausea and/or skin rash, discontinue this medication and contact our office for an alternative medication. c. Caution- narcotic pain medication can cause constipation. FOLLOW UP VISIT: Please call [facility] at [phone] to schedule a follow up appointment 10-14 days from the date of your surgery date. [place] Drug Monitoring Program Search Results: no issues identified
[2017-11-16] MEDS ORDERED: DLCS PR (14:49)
[2017-11-16] MEDS ORDERED: OXYC-57 PO (14:49)
[2017-11-16] MEDS ORDERED: ZLF50 PO (14:49)
[2017-11-16 15:07] VITALS: BP 151/76; PULSE 78; TEMP 36.8; O2SAT 94
--- NOTE | 2017-11-16 15:57 | Infectious Disease Progress Nt ---
Progress Note Date of Service Nov 16, 2017. Subjective Pt evaluation today including: conversation w/ patient, conversation w/ family , physical exam, chart review, lab review, review of studies, conversation w/ home care consultant, review of inpatient medication list Offers no new complaints today. Pain controlled. Remains afebrile. All Other Systems: Reviewed and Negative Medications Current Inpatient Medications Medications (Trade) Dose Ordered Sig/Brenda Route Start Time Stop Time Status Last Admin Dose Admin Acetaminophen (Tylenol Tab) 650 mg Q4H PRN PO 11/10/17 15:15 12/10/17 15:14 11/14/17 08:33 650 MG Naloxone HCl (Narcan Inj) 0.1 mg PRN PRN IV 11/10/17 15:15 12/10/17 15:14 Senna/Docusate Sodium (Senokot S Tab) 2 tab HS PO 11/10/17 21:00 12/10/17 20:59 11/15/17 21:48 2 TAB Polyethylene (Miralax Powder Packet) 17 gm DAILY PRN PO 11/10/17 15:15 12/10/17 15:14 Bisacodyl (Dulcolax Supp) 10 mg DAILY PRN [place] 11/10/17 15:15 12/10/17 15:14 Sodium Biphosphate/ Sodium Phosphate (Fleet Enema) 132 ml PRN PRN [place] 11/10/17 15:15 Insulin Aspart (novoLOG ASPART) SLIDING SCALE If C... ACHS SC 11/10/17 16:57 12/10/17 16:56 11/16/17 12:47 6 UNITS Glucose (Glucose 40% Gel) 15-30 GRAMS 15 GRAMS... UD PRN PO 11/10/17 15:30 12/10/17 15:29 Glucose (Glucose Chew Tab) 4-8 Tablets 4 Tabl... UD PRN PO 11/10/17 15:30 12/10/17 15:29 Dextrose (Dextrose 50% 50ML Syringe) 25-50ML OF 50% DW IV FOR... UD PRN IV 11/10/17 15:30 12/10/17 15:29 11/11/17 19:59 25 ML Glucagon (Glucagon Inj) 1 mg UD PRN SQ 11/10/17 15:30 12/10/17 15:29 Miscellaneous Information (Consult Glycemic Management Pharmacy) 1 ea UD N/A 11/10/17 15:30 12/10/17 15:29 Atorvastatin Calcium (Lipitor Tab) 80 mg QPM PO 11/10/17 21:00 12/10/17 20:59 11/15/17 21:47 80 MG Cholecalciferol (Vitamin D Tab) 1,000 inter.unit QPM PO 11/10/17 21:00 12/10/17 20:59 11/15/17 21:48 1,000 INTER.UNIT Lisinopril (Zestril Tab) 2.5 mg QPM PO 11/10/17 21:00 12/10/17 20:59 11/15/17 21:48 2.5 MG Sertraline HCl (Zoloft Tab) 100 mg DAILY PO 11/11/17 09:00 12/11/17 08:59 11/16/17 09:26 100 MG Lactobacillus Acidophilus (Floranex Tab) 4 tab QPM PO 11/10/17 21:00 12/10/17 20:59 11/15/17 21:47 4 TAB Sertraline HCl (Zoloft Tab) 25 mg QAM PO 11/11/17 09:00 12/11/17 08:59 11/16/17 09:27 25 MG Morphine Sulfate (MoRPHine SULFATE INJ) 4 mg Q4H PRN IV 11/10/17 17:00 11/24/17 16:59 11/11/17 22:21 4 MG Doxycycline Hyclate (Vibramycin Cap) 100 mg BID PO 11/10/17 21:00 11/20/17 20:59 11/16/17 09:27 100 MG Magnesium Hydroxide (Milk Of Magnesia Susp) 30 ml Q6H PRN PO 11/11/17 20:00 12/11/17 19:59 Multivitamins (Multivitamin Tab) 1 tab QAM PO 11/12/17 09:00 12/12/17 08:59 11/16/17 09:26 1 TAB Ondansetron HCl (Zofran Inj) 4 mg Q6H PRN IV 11/11/17 20:00 12/11/17 19:59 Aspirin (Ecotrin Tab) 81 mg BID PO 11/11/17 21:00 12/11/17 20:59 11/16/17 09:27 81 MG Oxycodone/ Acetaminophen (Percocet 5-325mg Tab) 1 tab Q4H PRN PO 11/12/17 00:00 11/26/17 00:00 11/16/17 09:25 1 TAB Hydromorphone HCl (Dilaudid Inj) 0.5 mg Q4H PRN IV 11/12/17 00:00 11/26/17 00:00 11/12/17 00:06 0.5 MG Insulin Glargine (Lantus Solostar Pen) 12 units We@1200 SC 11/17/17 12:00 11/17/17 14:00 Insulin Glargine (Lantus Solostar Pen) 12 units HS SC 11/18/17 16:45 12/18/17 16:44 Objective Vital Signs Date Time Temp Pulse Resp B/P (MAP) Pulse Ox O2 Delivery O2 Flow Rate FiO2 11/16/17 15:07 36.8 78 18 94 Room Air 11/16/17 07:45 Room Air 11/16/17 07:30 36.8 78 18 151/76 (101) 94 Room Air 11/16/17 00:50 Room Air 11/15/17 22:47 37.6 82 16 121/56 (77) 93 Room Air 11/15/17 21:43 82 123/60 (81) 11/15/17 16:00 Room Air Physical Exam General Appearance: WD/WN, no apparent distress Eyes: normal inspection, EOMI, sclerae normal ENT: normal ENT inspection, TMs normal Neck: supple, no adenopathy, thyroid normal, trachea midline Respiratory/Chest: chest non-tender, lungs clear, normal breath sounds, no respiratory distress Cardiovascular: regular rate, rhythm, no gallop, no murmur Abdomen: normal bowel sounds, non tender, soft, no organomegaly Extremities: non-tender, no calf tenderness Neurologic/Psychiatric: alert, oriented x 3 Skin: normal color, warm/dry, no rash Lymphatic: no adenopathy Laboratory Results Last 24 Hours Test 11/15/17 16:56 11/15/17 20:35 11/16/17 06:19 11/16/17 08:21 Bedside Glucose 130 mg/dl 100 mg/dl 123 mg/dl White Blood Count 8.23 K/uL Red Blood Count 2.85 M/uL Hemoglobin 8.3 g/dL Hematocrit 25.5 % Mean Corpuscular Volume 89.5 fL Mean Corpuscular Hemoglobin 29.1 pg Mean Corpuscular Hemoglobin Concent 32.5 g/dl RDW Standard Deviation 48.0 fL RDW Coefficient of Variation 14.5 % Platelet Count 170 K/uL Mean Platelet Volume 10.2 fL Sodium Level 139 mmol/L Potassium Level 3.9 mmol/L Chloride Level 109 mmol/L Carbon Dioxide Level 23 mmol/L Anion Gap 7.0 mmol/L Blood Urea Nitrogen 36 mg/dl Creatinine 1.22 mg/dl Est Creatinine Clear Calc Drug Dose 43.6 ml/min Estimated GFR () 49.1 Estimated GFR (Non- 42.4 BUN/Creatinine Ratio 29.5 Random Glucose 118 mg/dl Calcium Level 8.4 mg/dl Test 11/16/17 12:09 Bedside Glucose 173 mg/dl Assessment and Plan 77-year-old female with diabetes mellitus, right foot plantar ulceration with culture positive for methicillin sensitive Staph aureus, now with right femur fracture status post repair. Patient to continue on oral doxycycline therapy, should be followed up at the wound Care Center.
[2017-11-17] MEDS ORDERED: INSULIN GLARGINE SOLOSTAR 100 UNITS/ML 3 ML PEN SC SCH ×2 (12:00→16:45)
[2017-11-18] MEDS ORDERED: INSULIN GLARGINE SOLOSTAR 100 UNITS/ML 3 ML PEN SC SCH (16:45)
== END 2017-11-16 16:03 | DRG 482 ==
LOC: C.EDC 10:50 → EDBD 10:50 → C.2E 15:09 → ENRESERV 15:26 → C.MSN 11-12 16:42
PROVIDERS: ADMIT Hospitalist; ATTEND Internal Medicine
PROC: 0QS634Z Reposition Right Upper Femur with Internal Fixation Device, Percutaneous Approach (ICD-10-PCS; principal; 2017-11-11 11:00)
DX: M84.451A Pathological fracture, right femur, initial encounter for fracture (principal); N18.3 Chronic kidney disease, stage 3 (moderate); F32.9 Major depressive disorder, single episode, unspecified; E78.5 Hyperlipidemia, unspecified; Z66 Do not resuscitate; I12.9 Hypertensive chronic kidney disease with stage 1 through stage 4 chronic kidney disease, or unspecified chronic kidney disease; R29.6 Repeated falls; E11.622 Type 2 diabetes mellitus with other skin ulcer; F17.200 Nicotine dependence, unspecified, uncomplicated; W19.XXXA Unspecified fall, initial encounter; Z95.5 Presence of coronary angioplasty implant and graft; Z79.82 Long term (current) use of aspirin; Z89.429 Acquired absence of other toe(s), unspecified side; Z79.4 Long term (current) use of insulin; Z88.0 Allergy status to penicillin; Z88.2 Allergy status to sulfonamides; Z88.8 Allergy status to other drugs, medicaments and biological substances; Z83.3 Family history of diabetes mellitus; Z82.49 Family history of ischemic heart disease and other diseases of the circulatory system

== ENCOUNTER 2018-01-16 23:58 | Emergency (ER) | payer BC, OTHER ==
[~2018-01-16] VITALS: Ht 177.8 cm; Wt 72.7 kg
[~2018-01-16 23:58] MED LIST changes: -CRAN1CAP15 PO; +DLCS PR; -DOXY100C76 PO; +LISI-1116 PO; -LISI2.5T5 PO; +METR0.754 TOP; -NTRGSL/4 UT; +OXYC-57 PO; +SERT-234 PO; -SERT50TA PO; +ZLF50 PO
[2018-01-17 00:02] VITALS: TEMP 37.3; Ht 177.8 cm; Wt 72.7 kg
--- NOTE | 2018-01-17 00:10 | EMERGENCY ROOM VISIT NOTE ---
History Report prepared by Gumaro: Kassy Conway Under the Supervision of: Dr. Ramandeep Fritz D.O. First contact with patient: 23:59 Chief Complaint: HIP PAIN Stated Complaint: FALL W/ HIP PAIN History of Present Illness The patient is a 77 year old female who presents to the Emergency Room with complaints of sudden right hip pain beginning shortly prior to arrival. Per EMS , the patient was found on the floor by another resident and was complaining of right hip pain. Per EMS, the patient is from [facility] and reports that the patient has dementia. Per EMS, the patient also has neuropathy. Per EMS , [facility] reports that the patient has had previous falls. Limited HPI secondary to dementia. Source of History: EMS History Limited By: dementia Onset: shortly prior to arrival Position: other (right hip ) Quality: other (pain ) Timing: other (sudden ) Review of Systems Limited ROS secondary to dementia. Past Medical & Surgical Medical Problems: (1) CAD (coronary artery disease) (2) Dementia (3) Depression (4) DM type 2 (diabetes mellitus, type 2) (5) HLD (hyperlipidemia) (6) HTN (hypertension) (7) Neuropathy Surgical Problems: (1) Amputated toe of left foot (2) Amputated toe of right foot (3) S/P tonsillectomy Family History Diabetes mellitus FH: heart disease Social History Smoking Status: Current Every Day Smoker Housing Status: assisted living Current/Historical Medications Scheduled Aspirin (Aspirin Chewable), 81 MG PO QPM Atorvastatin (Lipitor), 80 MG PO QPM Bupropion Hcl (Wellbutrin), 100 MG PO DAILY Cholecalciferol (Vitamin D3), 1,000 INTER.UNIT PO QPM Exenatide (Bydureon), SC WK Insulin Glargine (Lantus Solostar), 22 UNITS SC QPM Lisinopril (Lisinopril), 2.5 MG PO QPM Probiotic Product (Trubiotics), 1 CAP PO QPM Scheduled PRN Bisacodyl (Bisac-Evac), 10 MG [place] DAILY PRN for constipation Hydroxyzine Hcl (Atarax), 25 MG PO for Anxiety Metronidazole (Topical) (Metrocream), 1 APPLN TOP DAILY PRN for Itching Oxycodone/Acetaminophen 5MG/325MG (Percocet 5MG/325MG), 1 TABLET PO Q12 PRN for Pain Allergies Coded Allergies: Cephalosporins (Verified Allergy, Unknown, tolerated Keflex at home, ok for rocephin per dr ho, 01/17/18) [id number] ADMISSION Latex (Verified Allergy, Unknown, "POSSIBLE"- PATIENT DOESN'T REMEMBER BEING ALLERGIC TO LATEX, 01/17/18) PT SAYS SHE "MAY BE" SENSITIVE TO LATEX. Moxifloxacin (Verified Allergy, Unknown, TENDON PAIN, 01/17/18) NSAIDs (Verified Allergy, Unknown, ABDOMINAL PAIN, 01/17/18) Penicillins (Verified Allergy, Unknown, A CHILD, HAD A REACTION, ) FATHER HAD ANAPHYLACTIC SHOCK TO PCN Quinolones (Verified Allergy, Unknown, UNKNOWN, 01/17/18) Salicylates (Unverified Allergy, Unknown, UNKNOWN, 01/17/18) Sulfa Antibiotics (Verified Allergy, Unknown, PATIENT CAN TAKE LASIX AND GLUCOTROL W/O RXN, 01/17/18) REACTION = TOPICAL "ATE MY SKIN" Sulfamethoxazole (Verified Allergy, Unknown, REACTION WHEN YOUNGER, ) Ciprofloxacin (Verified Adverse Reaction, Unknown, "DESTROYING MY TENDONS " - ACHILLES TENDON RUPTURES X 4, 01/17/18) Simvastatin (Unverified Adverse Reaction, Unknown, STOMACH CRAMPS, 01/17/18 ) Physical Exam Vital Signs Date Time Temp Pulse Resp B/P (MAP) Pulse Ox O2 Delivery O2 Flow Rate FiO2 01/17/18 02:49 85 12 123/65 99 Room Air 01/17/18 01:18 85 16 151/83 99 Room Air 01/17/18 00:23 88 01/17/18 00:02 37.3 89 20 173/89 99 Room Air Physical Exam HEENT: Head - normocephalic and atraumatic Pupils are equal, round, and reactive to light. Extraocular eye muscles are intact, and sclera are anicteric. Nose - moist nasal mucosa without discharge. Mouth - moist buccal mucosa. Oropharynx is nonerythematous and there is no tonsillar exudate or edema noted. Neck: Supple; no JVD, nuchal rigidity, cervical lymphadenopathy. Heart: Regular rate and rhythm. There is a normal S1 and S2 with no murmurs, clicks, or gallops appreciated. Lungs: Clear to auscultation bilaterally with no wheezes, rales, or rhonchi. Abdomen: Soft, completely nontender, nondistended, with good bowel sounds. There are no palpable pulsatile masses or hepatosplenomegaly. There is no guarding, rigidity, or rebound noted. Extremities: No evidence of cyanosis or clubbing. There are easily palpable peripheral pulses. Shortened slightly external rotation of right leg. Right foot is slightly edematous and erythematous. Pain with palpation over the right hip. Skin: warm and dry with good turgor and no rashes. Medical Decision & Procedures ER Provider Diagnostic Interpretation: Radiology results as stated below per my review. Chest X-Ray: No pulmonary infiltrates or consolidations. X-Ray is slightly rotated. Hip/Pelvis X-Ray: Hardware in place in left hip. Hardware in place in right hip. No obvious fracture. Radiology results as stated below per my review and [facility]. CT RIGHT HIP: Intertrochanteric fracture of the right femur is transfixed by orthopedic hardware. The hardware is intact and in place. A displaced fracture is noted at the lesser trochanter. This appears to also have been present on the original film from 11/10/17. No definite evidence for acute fracture. No joint dislocation. Laboratory Results 01/17/18 00:20 Red Blood Count 3.78, Mean Corpuscular Volume 89.4, Mean Corpuscular Hemoglobin 29.4, Mean Corpuscular Hemoglobin Concent 32.8, Mean Platelet Volume 9.8, Neutrophils (%) (Auto) 79.3, Lymphocytes (%) (Auto) 10.0, Monocytes (%) (Auto) 9.7, Eosinophils (%) (Auto) 0.5, Basophils (%) (Auto) 0.1, Neutrophils # (Auto) 11.94, Lymphocytes # (Auto) 1.50, Monocytes # (Auto) 1.46, Eosinophils # (Auto) 0.08, Basophils # (Auto) 0.02 01/17/18 00:20 Test 01/17/18 00:20 01/17/18 00:46 White Blood Count 15.06 K/uL (4.8-10.8) Red Blood Count 3.78 M/uL (4.2-5.4) Hemoglobin 11.1 g/dL (12.0-16.0) Hematocrit 33.8 % (37-47) Mean Corpuscular Volume 89.4 fL (80-100) Mean Corpuscular Hemoglobin 29.4 pg (25-34) Mean Corpuscular Hemoglobin Concent 32.8 g/dl (32-36) Platelet Count 274 K/uL (130-400) Mean Platelet Volume 9.8 fL (7.4-10.4) Neutrophils (%) (Auto) 79.3 % Lymphocytes (%) (Auto) 10.0 % Monocytes (%) (Auto) 9.7 % Eosinophils (%) (Auto) 0.5 % Basophils (%) (Auto) 0.1 % Neutrophils # (Auto) 11.94 K/uL (1.4-6.5) Lymphocytes # (Auto) 1.50 K/uL (1.2-3.4) Monocytes # (Auto) 1.46 K/uL (0.11-0.59) Eosinophils # (Auto) 0.08 K/uL (0-0.5) Basophils # (Auto) 0.02 K/uL (0-0.2) RDW Standard Deviation 46.7 fL (36.4-46.3) RDW Coefficient of Variation 14.3 % (11.5-14.5) Immature Granulocyte % (Auto) 0.4 % Immature Granulocyte # (Auto) 0.06 K/uL (0.00-0.02) Prothrombin Time 9.9 SECONDS (9.0-12.0) Prothromb Time International Ratio 0.9 (0.9-1.1) Activated Partial Thromboplast Time 25.4 SECONDS (21.0-31.0) Partial Thromboplastin Ratio 1.0 Anion Gap 10.0 mmol/L (3-11) Est Creatinine Clear Calc Drug Dose 34.8 ml/min Estimated GFR () 40.2 Estimated GFR (Non- 34.7 BUN/Creatinine Ratio 19.3 (10-20) Calcium Level 9.2 mg/dl (8.5-10.1) Urine Color YELLOW Urine Appearance ERROR (CLEAR) Urine pH 5.5 (4.5-7.5) Urine Specific [place] 1.015 (1.000-1.030) Urine Protein 1+ (NEG) Urine Glucose (UA) NEG (NEG) Urine Ketones NEG (NEG) Urine Occult Blood NEG (NEG) Urine Nitrite NEG (NEG) Urine Bilirubin NEG (NEG) Urine Urobilinogen NEG (NEG) Urine Leukocyte Esterase TRACE (NEG) Urine WBC (Auto) 1-5 /hpf (0-5) Urine RBC (Auto) 0-4 /hpf (0-4) Urine Hyaline Casts (Auto) 1-5 /lpf (0-5) Urine Epithelial Cells (Auto) >30 /lpf (0-5) Urine Bacteria (Auto) NEG (NEG) Urine Yeast (Auto) BUDDING (NONE PRSENT) Laboratory results per my review. Medications Administered Medications (Trade) Dose Ordered Sig/Brenda Route Start Time Stop Time Status Last Admin Dose Admin Fentanyl Citrate (Fentanyl Inj) 50 mcg NOW STAT IV 01/17/18 00:25 01/17/18 00:26 DC 01/17/18 00:41 50 MCG Procedure Medications administered Fentanyl Inj IV ECG Per My Interpretation Indication: weakness Rate (beats per minute): 88 Rhythm: normal sinus Findings: no acute ischemic change, no ectopy, other (no ST segment changes) ED Course 0000: Past medical records reviewed. The patient was evaluated in room A10. A complete history and physical exam was performed. A hip fracture protocol was placed. 0025: Ordered Fentanyl Inj 50 mcg IV. The patient went for plain films of the right hip as well as a chest x-ray. 0100: I checked on the patient and spoke to the daughter who is at bedside. Her daughter said that they saw Dr. Morales last week as follow-up after the patient had right hip hardware placed on November 10. Dr. Morales told them that the hardware had dramatically shifted since the surgery and that they may have to do a total hip replacement. Her daughter stated that even with physical therapy over the last couple of weeks that the patient has been unable to bear weight without pain. I reviewed the results of the x-ray with the patient and the daughter. She will go for a CT scan to further evaluate for new fracture. 0215: I updated the patient's daughter with the results of the CT scan. She says that the patient has pain in her hip all the time since the recent fracture and surgery. Medical Decision The patient is a 77 year old female who presents to the ED with right hip pain. Differential diagnosis includes hip contusion, hip fracture, and femur fracture. Lab Results Show Urine: Trace leukocyte esterase and epithelial cells BUN 28 Creatinine 1.4 Glucose 128 White count: 15 Hemoglobin 11.1 This is a 77-year-old female patient who suffered a right hip fracture 2 months ago and had hardware placed to repair that hip. Unfortunately, the patient fell and was found on the floor by another resident complaining of right hip pain. X-ray was indeterminant. CT scan revealed no new acute fracture. The patient will go back to the nursing facility and have close follow-up with orthopedics. Medication Reconcilliation Current Medication List: was personally reviewed by me Blood Pressure Screening Patient's blood pressure: Elevated blood pressure Blood pressure disposition: Elevated BP felt to be situational Impression Primary Impression: Contusion of right hip Additional Impression: Fall Scribe Attestation The scribe's documentation has been prepared under my direction and personally reviewed by me in its entirety. I confirm that the note above accurately reflects all work, treatment, procedures, and medical decision making performed by me. Departure Information Dispostion Home / Self-Care Referrals Eleno Peters MD (PCP) Forms HOME CARE DOCUMENTATION FORM, IMPORTANT VISIT INFORMATION, WORK / SCHOOL INSTRUCTIONS Patient Instructions Falls Preventing, Falls Risks Prevent, My [facility] Additional Instructions Rest. Follow up with Dr. Morales. Problem Qualifiers Primary Impression: Contusion of right hip Encounter type: initial encounter Qualified Codes: S70.01XA - Contusion of right hip, initial encounter Additional Impression: Fall Encounter type: initial encounter Qualified Codes: W19.XXXA - Unspecified fall, initial encounter
[2018-01-17 00:25] LABS: BASO % 0.1 %; BASO ABS # 0.02 K/uL (0-0.2); EOS % 0.5 %; EOS ABS # 0.08 K/uL (0-0.5); HEMATOCRIT 33.8 % (37-47); HEMOGLOBIN 11.1 g/dL (12.0-16.0); IG# 0.06 K/uL (0.00-0.02); MEAN CELL VOLUME 89.4 fL (80-100); MEAN CORPUSCULAR HEMOGLOBIN 29.4 pg (25-34); MEAN CORPUSCULAR HGB CONC 32.8 g/dl (32-36); MEAN PLATELET VOLUME 9.8 fL (7.4-10.4); MONO % 9.7 %; MONO ABS # 1.46 K/uL (0.11-0.59); NEUT % 79.3 %; NEUT ABS # 11.94 K/uL (1.4-6.5); PLATELET COUNT 274 K/uL (130-400); RED CELL DISTRIBUTION WIDTH CV 14.3 % (11.5-14.5); RED CELL DISTRIBUTION WIDTH SD 46.7 fL (36.4-46.3); WHITE BLOOD COUNT 15.06 K/uL (4.8-10.8)
[2018-01-17] MEDS ORDERED: FENTANYL CITRATE INJ 50 MCG/1 ML 2 ML VIAL IV STA (00:25)
[2018-01-17 00:35] LABS: INR 0.9 (0.9-1.1); PTT PATIENT 25.4 SECONDS (21.0-31.0)
[2018-01-17 00:41] LABS: CALCIUM 9.2 mg/dl (8.5-10.1); CREATININE 1.44 mg/dl (0.60-1.20); POTASSIUM 3.7 mmol/L (3.5-5.1)
[2018-01-17] MEDS ORDERED: BISA10SU7 PR (01:17)
[2018-01-17] MEDS ORDERED: OXYC-57 PO (01:20)
[2018-01-17] MEDS ORDERED: SERT1TAB68 PO (01:22)
[2018-01-17] MEDS ORDERED: BUPR100T13 PO (01:24)
[2018-01-17 02:49] VITALS: BP 123/65; PULSE 85; O2SAT 99
--- NOTE | 2018-01-17 06:41 | DIAGNOSTIC IMAGING REPORT ---
CHEST ONE VIEW PORTABLE CLINICAL HISTORY: Fall. Preoperative evaluation. COMPARISON STUDY: Chest radiograph November 10, 2017. FINDINGS: The patient is rotated. No pneumothorax or pleural effusion is noted. There is no evidence for pulmonary edema. Cardiac size is normal. Skinfold project over the hemithoraces. IMPRESSION: No acute cardiopulmonary findings. Electronically signed by: Jone Peters M.D. 01/17/2018 6:40 AM Dictated Date/Time: 01/17/2018 6:39 AM
--- NOTE | 2018-01-17 06:55 | DIAGNOSTIC IMAGING REPORT ---
R PELVIS/UNILATERAL HIP 2-3VIEWS CLINICAL HISTORY: Fall. Right hip pain. COMPARISON: Pelvis and right hip radiographs November 10, 2017 and right hip radiographs November 11, 2017. FINDINGS: Left hip arthroplasty is noted. A pelvic calcification may reflect a calcified uterine fibroid. Note is made of a proximal right femoral internal fixation with trochanteric nail. Note is made of a displaced intertrochanteric fracture with displacement of the lesser trochanter. Angulation and displacement has increased since post operative radiographs of November 11, 2017. In addition, the trochanteric nail now extends through the superior aspect of the right femoral head and impacts the acetabulum. IMPRESSION: 1. Status post right femoral internal fixation with trochanteric nail. Interval increase in fracture displacement and angulation since postoperative radiograph November 11, 2017. This could reflect an acute on subacute fracture or delayed fracture healing. Findings discussed with Dr. King at time of dictation. 2. Abnormal alignment of the right femoral hardware with trochanteric nail extending through the femoral head and impacting the acetabulum which represents an age indeterminate finding. Electronically signed by: Jone Peters M.D. 01/17/2018 6:54 AM Dictated Date/Time: 01/17/2018 6:35 AM
--- NOTE | 2018-01-17 07:13 | DIAGNOSTIC IMAGING REPORT ---
R LOWER EXTREMITY WITHOUT HISTORY: 77 years-old Female eval the right hip for acute fx. Hardware placed 11/21 acute right hip pain with evidence of prior surgery COMPARISON: Pelvis and right hip radiographs of same day and also on 11/11/2017 and 11/10/2017 TECHNIQUE: Multiple axial CT images of the right lower extremity were obtained without the use of IV contrast. Coronal and sagittal reformatted images were obtained from the axial data set and were submitted for review. A dose lowering technique was used consistent with the principals of JULIO. FINDINGS: Intertrochanteric nail with medullary daryn fixating a subacute appearing intertrochanteric fracture of the right femur is redemonstrated. The intertrochanteric nail is now displaced 2.7 cm superiorly from the ghost tract seen within the femoral head and neck, image 44 series 300 extending through the superior articular surface of the femoral head. There is adjacent erosion/remodeling changes of the superior acetabulum from displacement of the nail, image 47 series 300. Additionally, there is increased apex lateral angulation of the intertrochanteric region of approximately 90 degrees. Mild impaction of the subacute intertrochanteric fracture from the malaligned hardware. Comminuted displaced fracture about the lesser trochanter with the possibility of acute fracture lines within the intertrochanteric and lesser trochanteric regions. Healing bony callus formation is noted about the fractures with periostitis. No acute pelvic or acetabular fracture identified. The bones appear moderately demineralized. Abel catheter within the bladder. Calcified uterine fibroids. Extensive atherosclerosis about the right femoral artery. Suspected bursitis versus reactive edema of the distal right iliopsoas. Small joint effusion. Moderate stool volume throughout the imaged rectum and colon. IMPRESSION: 1. Subacute intertrochanteric fracture of the right femur with intertrochanteric nail and medullary daryn. The intertrochanteric nail is displaced superiorly and extends through the superior articular surface of the femoral head into the adjacent acetabulum where there is remodeling/erosion changes of the superior acetabular fossa. The intertrochanteric fracture also demonstrates increased apex lateral angulation and impaction from the comparison postoperative films from 11/11/2017 with apparent increased displacement of the comminuted lesser trochanteric fracture. Acute on subacute fracture would be difficult to exclude. 2. Moderately demineralized appearance of the bones. 3. Suspected bursitis versus reactive edema of the distal right iliopsoas. Findings were discussed with Dr. Baxter on 01/17/2018 at 6:45 AM The above report was generated using voice recognition software. It may contain grammatical, syntax or spelling errors. Electronically signed by: Hi Dutta M.D. 01/17/2018 7:12 AM Dictated Date/Time: 01/17/2018 6:42 AM
== END 2018-01-17 03:17 | disposition home or self-care (01) ==
LOC: C.EDA 23:58
DX: S70.01XA Contusion of right hip, initial encounter (principal); W19.XXXA Unspecified fall, initial encounter; Y92.199 Unspecified place in other specified residential institution as the place of occurrence of the external cause; F03.90 Unspecified dementia, unspecified severity, without behavioral disturbance, psychotic disturbance, mood disturbance, and anxiety; I25.10 Atherosclerotic heart disease of native coronary artery without angina pectoris; F32.9 Major depressive disorder, single episode, unspecified; E78.5 Hyperlipidemia, unspecified; I10 Essential (primary) hypertension; E11.40 Type 2 diabetes mellitus with diabetic neuropathy, unspecified; F17.200 Nicotine dependence, unspecified, uncomplicated; Z89.421 Acquired absence of other right toe(s); Z89.422 Acquired absence of other left toe(s); Z79.82 Long term (current) use of aspirin; Z79.4 Long term (current) use of insulin; Z79.899 Other long term (current) drug therapy; Z88.1 Allergy status to other antibiotic agents; Z88.0 Allergy status to penicillin; Z88.2 Allergy status to sulfonamides; Z88.8 Allergy status to other drugs, medicaments and biological substances; Z91.040 Latex allergy status